=== PATIENT | female | born 1965 | race Two or more races ===

== ENCOUNTER 2024-04-12 01:29 | Emergency (ER) | payer MEDICAID, SELFPAY ==
[2024-04-12 01:29] VITALS: BMI 26.5
[2024-04-12 01:36] VITALS: BP 138/94; PULSE 119; RESP 19; TEMP 36.6; O2SAT 99
--- NOTE | 2024-04-12 01:41 | EDRME_ITS ---
Rapid Medical Screening Exam [facility] Arrival date/time: 04/12/24 01:29 58F with history of anxiety/depression GERD/Linx device, marijauna use, and chronic diarrhea presents to ED with gen muscle cramps. Chief Complaint: General Adult/Misc Complain Vital signs: Vital Signs Temperature 97.9 F 04/12/24 01:36 Pulse Rate 119 H 04/12/24 01:36 Respiratory Rate 19 04/12/24 01:36 Blood Pressure 138/94 H 04/12/24 01:36 Pulse Oximetry (%) 99 04/12/24 01:36 Oxygen Delivery Method Room Air 04/12/24 01:36
[2024-04-12 02:30] LABS: Basophils % (Auto) 0 % (0-2.5); Eosinophils % (Auto) 0 % (0-10); Hematocrit 36.9 % (36.0-46.0); Hemoglobin 11.8 g/dL (12.0-16.0); Immature Granulocytes % (Auto) 0 % (0-0); Immature Granulocytes Auto 0.03 Thou/mm3 (0.00-0.00); Lymphocytes # (Auto) 1.3 Thou/mm3 (1.0-4.8); Lymphocytes % (Auto) 15 % (10-50); Mean Corpuscular Hemoglobin 25.5 pg (25.0-35.0); Mean Corpuscular Volume 80 fL (80-100); Monocytes # (Auto) 1.1 Thou/mm3 (0.0-0.8); Monocytes % (Auto) 13 % (0-12); Neutrophils # (Auto) 6.1 Thou/mm3 (1.8-7.7); Neutrophils % (Auto) 72 % (37-80); Nucleated Red Blood Cell % 0 /100 WBC (0); Platelet Count 411 Thou/mm3 (140-440); RDW Standard Deviation 50.2 fL (36.4-46.3); Red Blood Count 4.63 Miln/mm3 (4.00-5.20); White Blood Count 8.5 Thou/mm3 (3.6-11.0)
[2024-04-12 02:52] LABS: Alanine Aminotransferase 24 U/L (10-49); Albumin, Serum 5.5 gm/dL (3.4-4.8); Albumin/Globulin Ratio 1.8 (1.2-2.2); Alkaline Phosphatase 143 U/L (46-116); Anion Gap 14 (7-16); Aspartate Amino Transferase 35 U/L (0-34); BUN/Creatinine Ratio 6 Ratio (12-20); Bilirubin,Total 0.4 mg/dL (0.3-1.2); Blood Urea Nitrogen 17 mg/dL (9-23); Carbon Dioxide 21.4 mMol/L (20.0-31.0); Chloride 98 mMol/L (98-107); Creatinine (Component) 2.8 mg/dL (0.6-1.3); Estimated Creatinine Clearance 19.5 mL/min (>60); Glucose 181 mg/dL (74-106); Osmolality,Calculated 272 (275-295); Potassium 3.3 mMol/L (3.4-5.1); Sodium 133 mMol/L (136-145); Total Protein 8.5 gm/dL (5.7-8.2); eGFR 19 See Note
[2024-04-12 03:58] LABS: Creatine Kinase 125 U/L (34-171)
[2024-04-12 05:02] VITALS: BP 179/122; PULSE 119; RESP 20; TEMP 36.9; O2SAT 100
[2024-04-12] MEDS: SODIUM CHLORIDE 0.9% 1000 ML 1,000 ML 999 ML IV (05:06)
[2024-04-12 06:13] VITALS: BP 124/88; PULSE 89; RESP 17; TEMP 36.8; O2SAT 97
--- NOTE | 2024-04-12 06:34 | EDNOTE_ITS ---
ED General RME/HPI General Chief complaint: General Adult/Misc Complain Stated complaint: full body cramping Time Seen by Provider: 04/12/24 06:34 Arrival date/time: 04/12/24 01:29 RME / HPI RME / HPI narrative: 04/12/24 01:29 58F with history of anxiety/depression GERD/Linx device, marijauna use, and chronic diarrhea presents to ED with gen muscle cramps. Dr. Loomis MAIN ED EVALUATION 59 year old female with history of hypertension, diabetes, GERD with Linx device in place, s/p gastric bypass, s/p gastric sleeve, chronic diarrhea presents to the ED for complaint of I'm cramping and I think I'm dehydrated . States the cramping sensation is located all throughout her body with no known modifying factors. Accompanied by nausea. Reportedly in the last few days has not had enough fluid intake and is not sure why. Denies fevers, chills, chest pain, cough, shortness of breath, vomiting, or urinary symptoms. Related Data Previous Rx's ?Medication ?Instructions ?Recorded hydrocodone 5 mg-acetaminophen 325 1 tab PO Q6H PRN pain #10 tabs 01/24/24 mg tablet dicyclomine 20 mg tablet 20 mg PO BID #14 tabs 02/10/24 fluconazole 100 mg tablet 100 mg PO QDAY #5 tabs 02/10/24 (Diflucan) meloxicam 7.5 mg tablet 7.5 mg PO QDAY #7 tabs 02/10/24 phenazopyridine 100 mg tablet 100 mg PO TID #6 tabs 02/10/24 (Pyridium) polyethylene glycol 3350 17 17 g PO BID #119 grams 02/25/24 gram/dose oral powder (ClearLax) Allergies Allergy/AdvReac Type Severity Reaction Status Date / Time hydrocodone Allergy Severe Anxiety Verified 04/12/24 01:31 Review of Systems Review of Systems Narrative Review of Systems: Gen: No fever, no chills, no weight loss, + cramping all throughout EYES: No discharge, no visual changes, no pain HEENT: No ear pain, no congestion, no sore throat PULM: No shortness of breath, no cough, no congestion CV: No chest pain, no palpitations GI: +nausea, no vomiting, no diarrhea, no pain, no constipation : No frequency, no urgency,? no dysuria Musc/skel: No joint pain, no back pain Skin: No rash. Neuro: No weakness, no headache Past Medical History Past Medical History CARDIAC: Negative Cardiac Disorders or Congestive Heart Failure RESPIRATORY: Negative Chronic Obstructive Pulmonary Disease (COPD) or Asthma GENITOURINARY: Negative Renal Disease ENDOCRINE: Positive Diabetes Mellitus Type 2; Negative Diabetes Mellitus Type 1 HEMATOLOGIC: Negative Sickle Cell Disease Social History SMOKING STATUS: Never smoker SUBSTANCE USE: does not use ED Exam Narrative Physical exam: GENERAL: In general the patient is awake, interactive, [place] HEAD/EYES/EARS/NOSE/THROAT: normo-cephalic, atraumatic, mucus membranes are moist, anicteric, palpebral conjunctiva is pink, trachea is midline. CARDIOVASCULAR: regular rate and regular rhythm, no murmurs, heart sounds are not distant, strong pulses in all four extremities that are equal and symmetric bilateral upper and lower extremities, normal capillary refill. CHEST/PULMONARY: normal chest rise and fall, good air movement, clear to auscultation bilaterally, normal inspiratory to expiratory ratios without evidence of respiratory distress. ABDOMEN: soft, not tender, no masses appreciated BACK: normal range of motion without pain. NEUROLOGICAL: cranio-facial features are symmetric, moves all four extremities equally without obvious limitations or weakness. EXTREMITY: no tenderness to palpation over the long bones or large joints of the bilateral upper and lower extremities, no joint swelling, no joint erythema, no signs of trauma, no unilateral leg swelling and no peripheral edema. SKIN: warm, dry, well-perfused, no jaundice, no rash, no telangiectasias or petechia. PSYCH: calm, cooperative, no evidence of psychosis or agitation Course Quality Measures none Orders Category Date Time Status Insert IV NOW Care 04/12/24 03:28 Active CBC Stat Lab 04/12/24 02:12 Completed CMP [Comprehensive Metabolic Panel] Stat Lab 04/12/24 02:12 Completed Creatine Kinase Stat Lab 04/12/24 02:12 Completed Drug Screen,Urine Stat Lab 04/12/24 01:41 Ordered Urinalysis Stat Lab 04/12/24 01:41 Ordered Sodium Chloride 0.9% 1000 ml [Ns] 1,000 ml Med 04/12/24 03:28 Discontinued IV 999 mls/hr Reevaluation(s) Reevaluation #1: Patient reports feeling improved after IV fluids. We reviewed all the results, analysis, and treatment plans. Patient is amenable to discharge. Strict return precautions were outlined. Patient was discharged in stable condition. Time: 06:33 Vital Signs Vital signs: Vital Signs Temperature 97.9 F 04/12/24 01:36 Pulse Rate 119 H 04/12/24 01:36 Respiratory Rate 19 04/12/24 01:36 Blood Pressure 138/94 H 04/12/24 01:36 Pulse Oximetry (%) 99 04/12/24 01:36 Oxygen Delivery Method Room Air 04/12/24 01:36 Pulse ox is 99% on room air which is adequate. [facility] Patient data External records reviewed:: [facility] previous records (I reviewed ED visit on 03/19/2024) Clinical information provided by:: patient Social determinants that could affect healthcare access:: substance use (Marijuana use ) Patient has the following chronic illnesses:: hypertension, diabetes, GERD with Linx device in place, s/p gastric bypass, s/p gastric sleeve, chronic diarrhea How is presenting disease/condition affected by chronic disease/condition?: e xacerbated by Evaluation data The following diagnostics were reviewed and interpreted by me:: lab results Lab and/or radiology exams considered but not ordered:: None Interpretation Summary: CBC- WNL Potassium is 3.3 and had been previously low on 02/10/2024 Medications Medications considered but not ordered:: None Medication administrations:: Medication Administration History Discontinued Medications Sodium Chloride (Ns) 1,000 mls @ 999 mls/hr IV .Q1H1M ONE Stop: 04/12/24 04:28 Last Infusion: 04/12/24 06:34 Dose: Infused Documented By: Admin: 04/12/24 05:06 Dose: 999 mls/hr Documented By: CCT See above Consultations Consultation(s) initiated? (list below): No Diagnosis Differential Diagnosis ED Complaint MDM: Dehydration, hypokalemia, hyponatremia Most likely diagnosis given after review of the tests above:: Acute dehydration Hypokalemia Admission Indicated Admission indicated?: not indicated Explain why admission is indicated or not indicated:: Patients symptoms improved. She does not meet admission criteria. Admission Request Was there a request for admission?: No Disposition Plan Disposition Plan: Discharge Discharge Attestation Discharge Attestation: The patient and all family members were given an opportunity to ask questions and understood the discharge instructions. Discharge instructions specifically effects, indications for sooner follow up or return to the emergency department, and the expected course of current diagnosis. Patient condition: Stable Medical Decision Making Differential Diagnosis Differential Diagnosis: Dehydration, hypokalemia, hyponatremia Lab Data 04/12/24 02:12 04/12/24 02:12 Labs: Lab Results 04/12/24 Range/Units 02:12 WBC 8.5 (3.6-11.0) Thou/mm3 RBC 4.63 (4.00-5.20) Miln/mm3 Hgb 11.8 L (12.0-16.0) g/dL Hct 36.9 (36.0-46.0) % MCV 80 (80-100) fL MCH 25.5 (25.0-35.0) pg MCHC 32.0 (31.0-37.0) g/dl RDW Std Deviation 50.2 H (36.4-46.3) fL Plt Count 411 (140-440) Thou/mm3 Neut % (Auto) 72 (37-80) % Lymph % (Auto) 15 (10-50) % [place] % (Auto) 13 H (0-12) % Eos % (Auto) 0 (0-10) % Baso % (Auto) 0 (0-2.5) % Neut # (Auto) 6.1 (1.8-7.7) Thou/mm3 Lymph # (Auto) 1.3 (1.0-4.8) Thou/mm3 [place] # (Auto) 1.1 H (0.0-0.8) Thou/mm3 Eos # (Auto) 0.0 (0.0-0.5) Thou/mm3 Baso # (Auto) 0.0 (0.0-0.2) Thou/mm3 Immature Gran # (Auto) 0.03 H (0.00-0.00) Thou/mm3 Absolute Nucleated RBC 0.00 (0.00-0.00) Thou/mm3 Immature Gran % 0 (0-0) % Nucleated RBC % 0 (0) /100 WBC Sodium 133 L (136-145) mMol/L Potassium 3.3 L (3.4-5.1) mMol/L Chloride 98 (98-107) mMol/L Carbon Dioxide 21.4 (20.0-31.0) mMol/L Anion Gap 14 (7-16) BUN 17 (9-23) mg/dL Creatinine 2.8 H (0.6-1.3) mg/dL Estim Creat Clear Calc 19.5 L (>60) mL/min eGFR 19 L (60 - ) See Note BUN/Creatinine Ratio 6 L (12-20) Ratio Glucose 181 H (74-106) mg/dL Calculated Osmolality 272 L (275-295) Calcium 11.0 H (8.3-10.6) mg/dL Corrected Calcium 11.0 H (8.5-10.1) mg/dL Total Bilirubin 0.4 (0.3-1.2) mg/dL AST 35 H (0-34) U/L ALT 24 (10-49) U/L Alkaline Phosphatase 143 H (46-116) U/L Total Creatine Kinase 125 (34-171) U/L Total Protein 8.5 H (5.7-8.2) gm/dL Albumin 5.5 H (3.4-4.8) gm/dL Globulin 3.0 (2.3-3.5) gm/dL Albumin/Globulin Ratio 1.8 (1.2-2.2) Discharge Plan Plan Patient Disposition: HOME (Self Care) Patient condition on transfer: Stable Prescriptions/Referrals Prescriptions/Med Rec: No Action hydrocodone-acetaminophen 5-325 mg tablet 1 tab PO Q6H MDD 3 PRN (Reason: pain) Qty: 10 0RF phenazopyridine [Pyridium] 100 mg tablet 100 mg PO TID Qty: 6 0RF fluconazole [Diflucan] 100 mg tablet 100 mg PO QDAY Qty: 5 0RF dicyclomine 20 mg tablet 20 mg PO BID Qty: 14 0RF meloxicam 7.5 mg tablet 7.5 mg PO QDAY Qty: 7 0RF polyethylene glycol 3350 [ClearLax] 17 gram/dose powder 17 g PO BID Qty: 119 3RF Rx Instructions: Twice a day for 2 weeks and then once a day for 1 week and then you can do it every other day as needed for constipation. Referrals: No Primary/Family,Physician [Primary Care Provider] - In 1 week Problem List Clinical Impression: Acute dehydration, Hypokalemia Patient/Caregiver Discharge Instructions Education Materials: Discharge Instructions for ..., ED Hypokalemia Additional Instructions: Return to the emergency department for worsening symptoms or any other concerns Print Language: Wallisian Stand Alone Forms: [employer] Info., Patient Portal Info Letter
[2024-04-12 07:18] VITALS: BP 131/88; PULSE 79; RESP 20; TEMP 36.6
== END 2024-04-12 07:27 | disposition home or self-care (01) ==
PROVIDERS: Physician Assistant; Emergency Provider Emergency Medicine
DX: E86.0 Dehydration (principal); E87.6 Hypokalemia
CPT/HCPCS: 36415; 80053; 80307; 81001; 82550; 85025; 96360; 99284; J7030

== ENCOUNTER 2024-04-17 03:46 | Emergency (ER) | payer MEDICAID, SELFPAY ==
[2024-04-17] VITALS (14 sets, daily range): BP systolic 141–184; BP diastolic 84–135; PULSE 88–117; RESP 16–20; TEMP 36.7–37.1; O2SAT 88–100; BMI 27.4
--- NOTE | 2024-04-17 03:56 | EDRME_ITS ---
Rapid Medical Screening Exam [facility] Arrival date/time: 04/17/24 03:46 59F with history of anxiety/depression GERD/Linx device, marijauna use, and chronic diarrhea presents to ED with 3 days of no BM. Patient was here multiple times for similar complaints. Patient was admitted for SBO r/o with no SBO several days ago. Patient has tried enemas and Miralax w/o relief. Patient does not want repeat CT. Chief Complaint: Abdominal Pain Vital signs: Vital Signs Temperature 98.7 F 04/17/24 03:52 Pulse Rate 117 H 04/17/24 03:52 Respiratory Rate 19 04/17/24 03:52 Blood Pressure 165/124 H 04/17/24 03:52 Pulse Oximetry (%) 99 04/17/24 03:52 Oxygen Delivery Method Room Air 04/17/24 03:52
[2024-04-17] MEDS: LACTULOSE SYRUP 20 GM/30 ML UDC 40 GM PO (04:22)
[2024-04-17 06:02] LABS: Lactate (Lactic Acid) 2.2 mMol/L (0.4-2.0)
[2024-04-17 06:08] LABS: Basophils % (Auto) 0 % (0-2.5); Eosinophils % (Auto) 0 % (0-10); Hematocrit 38.3 % (36.0-46.0); Hemoglobin 12.7 g/dL (12.0-16.0); Immature Granulocytes % (Auto) 0 % (0-0); Immature Granulocytes Auto 0.03 Thou/mm3 (0.00-0.00); Lymphocytes # (Auto) 1.3 Thou/mm3 (1.0-4.8); Lymphocytes % (Auto) 16 % (10-50); Mean Corpuscular HGB Conc 33.2 g/dl (31.0-37.0); Mean Corpuscular Hemoglobin 25.9 pg (25.0-35.0); Mean Corpuscular Volume 78 fL (80-100); Monocytes # (Auto) 0.6 Thou/mm3 (0.0-0.8); Monocytes % (Auto) 8 % (0-12); Neutrophils # (Auto) 6.1 Thou/mm3 (1.8-7.7); Neutrophils % (Auto) 76 % (37-80); Nucleated Red Blood Cell % 0 /100 WBC (0); Platelet Count 419 Thou/mm3 (140-440); RDW Standard Deviation 47.7 fL (36.4-46.3); Red Blood Count 4.91 Miln/mm3 (4.00-5.20)
[2024-04-17 06:29] LABS: Alanine Aminotransferase 29 U/L (10-49); Albumin, Serum 5.6 gm/dL (3.4-4.8); Albumin/Globulin Ratio 1.8 (1.2-2.2); Alkaline Phosphatase 155 U/L (46-116); Anion Gap 7 (7-16); Aspartate Amino Transferase 35 U/L (0-34); BUN/Creatinine Ratio 12 Ratio (12-20); Bilirubin,Total 0.8 mg/dL (0.3-1.2); Blood Urea Nitrogen 26 mg/dL (9-23); Calcium 10.8 mg/dL (8.3-10.6); Calcium (Corrected) 10.8 mg/dL (8.5-10.1); Carbon Dioxide 23.4 mMol/L (20.0-31.0); Chloride 96 mMol/L (98-107); Creatinine (Component) 2.1 mg/dL (0.6-1.3); Estimated Creatinine Clearance 25.4 mL/min (>60); Globulin 3.1 gm/dL (2.3-3.5); Glucose 244 mg/dL (74-106); Lipase 51 U/L (12-53); Magnesium 2.6 mg/dL (1.6-2.6); Osmolality,Calculated 266 (275-295); Potassium 4.1 mMol/L (3.4-5.1); Sodium 126 mMol/L (136-145); Total Protein 8.7 gm/dL (5.7-8.2); eGFR 26 See Note
--- NOTE | 2024-04-17 06:41 | XR_ITS ---
Examination: Abdomen AP single view Technique: AP portable supine abdomen, single view Exam date and time: April 17, 2024 0701 hours INDICATIONS: Abdominal pain constipation beginning 3 days ago. FINDINGS: Nonobstructive bowel gas pattern Moderate air and stool throughout the colon Surgical clips upper abdomen Moderate lumbar levoscoliosis Prominent osteopenia IMPRESSION: Nonobstructive bowel gas pattern
--- NOTE | 2024-04-17 08:10 | PC.NURSE ---
PT HERE WITH C/O ABD PAIN FOR 3 DAYS. B/P HIGH AND PT STATES I'VE NOT BEEN TAKING MY B/P MEDS BECAUSE IT'S BEEN LOW. PT REQUESTING PAIN MEDICATIONS AND WHEN INFORMED SHE CAN'T BE DRIVING AFTER RECEIVING NARCOTICS. PT STATES I ONLY LIVE JUST DOWN THE ROAD I'LL BE OKAY. INFORMED THAT SHE WILL HAVE TO CALL SOMEONE IF THE MD ORDERS NARCOTICS
[2024-04-17] MEDS: SODIUM CHLORIDE 0.9% 1000 ML 1,000 ML 999 ML IV ×2 (08:33→13:42)
[2024-04-17] MEDS: KETOROLAC INJ 30 MG/ML VIAL IVP (08:38)
[2024-04-17 08:51] LABS: Reflex Lactate? Y
[2024-04-17 09:15] LABS: Lactic Acid, 3 HR 2.9 mMol/L (0.4-2.0)
--- NOTE | 2024-04-17 09:15 | XR_ITS ---
Examination: CT abdomen and pelvis without contrast. Coronal 3-D reconstructions. Sagittal 2-D reconstructions. Date and time of exam:April 17, 2024 0941 hours INDICATIONS: Generalized abdominal pain and constipation beginning 3 days ago COMPARISON: April 12, 2024 CTDI: vol (mGy): 7.15 DLP: (mGycm): 384 Technique: Axial images of the abdomen have been obtained, 3 mm slice thickness Intravenous contrast material has not been administered. Low dose protocols were performed. One or more of the following dose reduction techniques were used; automated exposure control, adjustment of the mA and/or KV according to patient size, use of iterative reconstruction technique. Findings: Lap band device No focal liver or splenic lesions Absent gallbladder No pancreatic or adrenal mass Moderate bilateral renal parenchymal scar formation 1 mm calculus upper pole right kidney coronal image 79 2 mm calculus mid pole left kidney coronal image 80 1 mm upper pole left renal calculus image, coronal 84 No hydronephrosis or ureteral calculi Abdominal aortic calcification no aneurysmal dilatation Mildly fluid distended colon and mild wall thickening small bowel loops Normal appendix No bowel obstruction No diverticulitis No pelvic mass Contracted urinary bladder Prominent osteopenia IMPRESSION: Tiny bilateral nonobstructing renal calculi Normal appendix Nonspecific mild diffuse colitis enteritis pattern, no bowel obstruction
[2024-04-17] MEDS: HYDROmorphone INJ 2 MG/ML VIAL IVP (09:25)
--- NOTE | 2024-04-17 10:21 | PC.NURSE ---
PT NO WITH C/O ITCHING AND I THINK IT'S FROM THE PAIN MEDICATION. WILL INFORM
[2024-04-17] MEDS: DiphenhydrAMINE INJ 50 MG/ML VIAL 25 MG IVP (10:31)
--- NOTE | 2024-04-17 10:49 | PC.NURSE ---
informed about b/p 140/104 and will hold hydralazine at this time
--- NOTE | 2024-04-17 13:40 | EDNOTE_ITS ---
ED Abdominal Pain RME/HPI General Chief Complaint: Abdominal Pain Stated complaint: ABD PAIN, NO BM X 3 DAYS Time seen by provider: 04/17/24 08:13 Arrival date/time: 04/17/24 03:46 RME / HPI RME / HPI narrative: 04/17/24 03:46 59F with history of anxiety/depression GERD/Linx device, marijauna use, and chronic diarrhea presents to ED with 3 days of no BM. Patient was here multiple times for similar complaints. Patient was admitted for SBO r/o with no SBO several days ago. Patient has tried enemas and Miralax w/o relief. Patient does not want repeat CT. DR. RAMIREZ MAIN ED EVALUATION 59 year old female with history of hypertension, diabetes, GERD s/p Linx device, s/p lap-band, s/p cholecystectomy, SBO presents to the ED for complaint of abdominal pain and generalized discomfort beginning 3 days ago. States abdominal pain is described as aching in sensation that is located throughout, with no known modifying factors, rating as moderate. Accompanied by constipation, no bowel movement x3 days. Reports symptoms today are similar to previous SBO. No other associated symptoms or complaints reported. Denies fevers, chills, cough, chest pain, or urinary symptoms. On arrival to ED patient is moaning and groaning, requesting Dilaudid. Social hx: +Marijuana use Related Data Home Medications ?Medication ?Instructions ?Recorded ?Confirmed polyethylene glycol 3350 17 17 g PO PRN PRN Constipation 04/12/24 04/12/24 gram/dose oral powder (ClearLax) aripiprazole 10 mg tablet mg 04/13/24 atorvastatin 80 mg tablet mg 04/13/24 bupropion HCl 300 mg 24 hr tablet, mg PO 04/13/24 extended release diphenhydramine HCl 25 mg capsule 25 mg PO 2XD 04/13/24 04/13/24 (Banophen) duloxetine 60 mg capsule,delayed 60 mg PO 1XD 04/13/24 04/13/24 release ergocalciferol (vitamin D2) 1,250 1,250 mcg PO 1XD 04/13/24 04/13/24 mcg (50,000 unit) capsule gabapentin 300 mg capsule 300 mg PO 3XD 04/13/24 04/13/24 ketorolac 10 mg tablet 10 mg PO 2XD 04/13/24 04/13/24 pantoprazole 40 mg tablet,delayed 40 mg PO 2XD 04/13/24 04/13/24 release Previous Rx's ?Medication ?Instructions ?Recorded dicyclomine 20 mg tablet 20 mg PO BID #14 tabs 02/10/24 Allergies Allergy/AdvReac Type Severity Reaction Status Date / Time hydrocodone Allergy Severe Anxiety Verified 04/12/24 01:31 hydromorphone [From Dilaudid] Allergy Severe Hives Verified 04/17/24 10:22 morphine Allergy Severe ITCHINESS Verified 04/13/24 03:45 Review of Systems Review of Systems Narrative Review of Systems: GEN: No fever, no chills, no weight loss EYES: No discharge, no visual changes, no pain HEENT: No ear pain, no congestion, no sore throat PULM: No shortness of breath, no cough, no congestion CV: No chest pain, no dyspnea on exertion, no palpitations GI: No nausea, no vomiting, no diarrhea, +pain, + constipation : No frequency, no urgency and no dysuria MUSC/SKEL No joint pain, no back pain SKIN: No rash NEURO: No weakness, no headache Past Medical History Past Medical History CARDIAC: Negative Cardiac Disorders or Congestive Heart Failure RESPIRATORY: Negative Chronic Obstructive Pulmonary Disease (COPD) or Asthma GENITOURINARY: Negative Renal Disease ENDOCRINE: Positive Diabetes Mellitus Type 2; Negative Diabetes Mellitus Type 1 HEMATOLOGIC: Negative Sickle Cell Disease Surgical History SURGICAL: Positive Abdominal Surgery and Gastric Bypass Surgery Social History SMOKING STATUS: Current some day smoker SUBSTANCE USE: does not use ED Exam Narrative Physical exam: GENERAL APPEARANCE: Well hydrated, well nourished, appears to be uncomfortable, moaning and groaning. VITALS: All vitals were reviewed and the pulse ox is 99% on room air which is normal according to my interpretation. HEENT: Normocephalic, atramatic, EOMI, EACs are patent. There is no bulge or retraction. Throat without erythema or exudate. Dry lips. No jaundice NECK: Supple, no JVD or bruits. CARDIOVASCULAR: Tachycardic, without S3-S4 or murmur. No rubs or gallops. LUNGS/CHEST: Clear to auscultation bilaterally. No rales, rhonchi, or wheezing. Normal inspection. ABDOMEN: Soft, vaguely tender throughout, no rebound, no guarding, normal bowel sounds. No pulsatile masses. No rigidity. No incarcerated hernia. EXTREMITIES: Normal inspection and palpation. No edema, clubbing, or cyanosis. Intact CSM SKIN: Warm and dry without rashes. Normal inspection. MUSCULOSKELETAL: Normal inspection. No gross deformity, full ROM all extremities NEURO: Alert and oriented x3. Cranial nerves II through XII grossly intact. There are no other motor or sensory deficits noted. PSYCHIATRIC: Normal mood and affect. No psychosis. Course Quality Measures none Orders Category Date Time Status Enema Administration NOW Care 04/17/24 06:41 Active Enema Administration NOW Care 04/17/24 09:[address] abdomen pelvis wo con Stat Exams 04/17/24 09:15 Completed XR abdomen 1V Stat Exams 04/17/24 06:41 Completed CBC Stat Lab 04/17/24 05:44 Completed CMP [Comprehensive Metabolic Panel] Stat Lab 04/17/24 05:44 Completed Lactate (Lactic Acid) Stat Lab 04/17/24 05:44 Completed Lactic Acid, 3 HR Stat Lab 04/17/24 09:07 Completed Lipase Stat Lab 04/17/24 05:44 Completed Magnesium Stat Lab 04/17/24 05:44 Completed DiphenhydrAMINE INJ [Benadryl Inj] Med 04/17/24 10:23 Discontinued 25 mg IVP X1 ONE HYDROmorphone INJ [Dilaudid Inj] Med 04/17/24 09:15 Discontinued 2 mg IVP X1 ONE Ketorolac Inj [Toradol Inj] Med 04/17/24 08:35 Discontinued 30 mg IVP X1 ONE Lactulose Syrup [Enulose Syrup] Med 04/17/24 03:55 Discontinued 40 gm PO X1 ONE Sodium Chloride 0.9% 1000 ml [Ns] 1,000 ml Med 04/17/24 08:20 Discontinued IV 999 mls/hr Sodium Chloride 0.9% 1000 ml [Ns] 1,000 ml Med 04/17/24 13:34 Active IV 999 mls/hr hydrALAZINE INJ [Apresoline Inj] Med 04/17/24 10:15 Discontinued 10 mg IV X1 ONE Vital Signs Vital signs: Vital Signs Temperature 98.7 F 04/17/24 03:52 Pulse Rate 117 H 04/17/24 03:52 Respiratory Rate 19 04/17/24 03:52 Blood Pressure 165/124 H 04/17/24 03:52 Pulse Oximetry (%) 99 04/17/24 03:52 Oxygen Delivery Method Room Air 04/17/24 03:52 Abdominal Pain MDM MDM Narrative MDM Narrative:: CBC unremarkable. Sodium is 126. Blood sugar 244. BUN of 26. Creatinine of 2.1. Consistent with dehydration. Lactic acid was 2.2 also consistent with dehydration rather than septic. Magnesium is negative. Abdominal x-ray is reviewed and interpreted by me as follow: Lap-Band in the stomach and surgical clips on the right upper quadrant no bowel obstruction. No free air. No air-fluid level. Scant amount of stooling is seen in the rectum. CT abdomen and pelvic was reviewed and interpreted by me as follow: Lap-Band in the stomach. Surgical clips in the right upper quadrant consistent with cholecystectomy. Evidence of abdominal ileus consistent with her physical finding. No significant stool buildup except for the right upper quadrant. No evidence of rectal impaction. In the emergency department and per patient's request, she was given Dilaudid for the pain. Which helped a lot. She was also given Fleet enema and soapsuds enema. From which she did have some stool coming out. Because of the lactic acid was still 2.9 is repeated, I am giving her more IV fluid bolus for the dehydration. 1:47 PM, patient has no surgical abdomen at this time. She can go home and follow-up with PMD in the next couple of days. Patient is happy and smiling at this time. She said that her condition has much improved and the pain is gone. Patient data External records reviewed:: [facility] previous records (I reviewed admission from 04/12/2024 through 04/13/2024 for SBO ) Clinical information provided by:: patient Social determinants that could affect healthcare access:: substance use (Marijuana ) Patient has the following chronic illnesses:: hypertension, diabetes, GERD s/p Linx device, s/p lap-band, s/p cholecystectomy, SBO How is presenting disease/condition affected by chronic disease/condition?: exacerbated by Evaluation data The following diagnostics were reviewed and interpreted by me:: lab results and radiology exam(s) Lab and/or radiology exams considered but not ordered:: None Interpretation Summary: Ordering Physician: Liz Thurman Date of Service: 04/17/24 Procedure(s): XR abdomen 1V Accession Number(s): [id number] cc: Oneal Aguilar MD; Joshua Hargrove MD; Liz Thurman~ Examination: Abdomen AP single view Technique: AP portable supine abdomen, single view Exam date and time: April 17, 2024 0701 hours INDICATIONS: Abdominal pain constipation beginning 3 days ago. FINDINGS: Nonobstructive bowel gas pattern Moderate air and stool throughout the colon Surgical clips upper abdomen Moderate lumbar levoscoliosis Prominent osteopenia IMPRESSION: Nonobstructive bowel gas pattern Dictated By: Joshua Hargrove MD Signed By: <Electronically signed by Joshua Hargrove MD in OV> 04/17/24 0931 Ordering Physician: Marcus Ramirez MD Date of Service: 04/17/24 Procedure(s): CT abdomen pelvis wo con Accession Number(s): [id number] cc: Oneal Aguilar MD; Joshua Hargrove MD; Marcus Ramirez MD~ Examination: CT abdomen and pelvis without contrast. Coronal 3-D reconstructions. Sagittal 2-D reconstructions. Date and time of exam:April 17, 2024 0941 hours INDICATIONS: Generalized abdominal pain and constipation beginning 3 days ago COMPARISON: April 12, 2024 CTDI: vol (mGy): 7.15 DLP: (mGycm): 384 Technique: Axial images of the abdomen have been obtained, 3 mm slice thickness Intravenous contrast material has not been administered. Low dose protocols were performed. One or more of the following dose reduction techniques were used; automated exposure control, adjustment of the mA and/or KV according to patient size, use of iterative reconstruction technique. Findings: Lap band device No focal liver or splenic lesions Absent gallbladder No pancreatic or adrenal mass Moderate bilateral renal parenchymal scar formation 1 mm calculus upper pole right kidney coronal image 79 2 mm calculus mid pole left kidney coronal image 80 1 mm upper pole left renal calculus image, coronal 84 No hydronephrosis or ureteral calculi Abdominal aortic calcification no aneurysmal dilatation Mildly fluid distended colon and mild wall thickening small bowel loops Normal appendix No bowel obstruction No diverticulitis No pelvic mass Contracted urinary bladder Prominent osteopenia IMPRESSION: Tiny bilateral nonobstructing renal calculi Normal appendix Nonspecific mild diffuse colitis enteritis pattern, no bowel obstruction Dictated By: Joshua Hargrove MD Signed By: <Electronically signed by Joshua Hargrove MD in OV> 04/17/24 1007 Medications / Prescriptions Medications or Prescriptions considered but not ordered:: None Medication administrations:: Medication Administration History Sodium Chloride (Ns) 1,000 mls @ 999 mls/hr IV .Q1H1M ONE Stop: 04/17/24 14:34 Last Admin: 04/17/24 13:42 Dose: 999 mls/hr Documented By: DB Discontinued Medications Diphenhydramine HCl (Diphenhydramine Inj 50 Mg/Ml Vial) 25 mg IVP X1 ONE Stop: 04/17/24 10:24 Last Admin: 04/17/24 10:31 Dose: 25 mg Documented By: [facility] Hydralazine HCl (Hydralazine Inj 20 Mg/Ml Vial) 10 mg IV X1 ONE Stop: 04/17/24 10:16 Hydromorphone HCl (Hydromorphone Inj 2 Mg/Ml Vial) 2 mg IVP X1 ONE Stop: 04/17/24 09:16 Last Admin: 04/17/24 09:25 Dose: 2 mg Documented By: [facility] Sodium Chloride (Ns) 1,000 mls @ 999 mls/hr IV .Q1H1M ONE Stop: 04/17/24 09:20 Last Infusion: 04/17/24 13:40 Dose: Infused Documented By: Admin: 04/17/24 08:33 Dose: 999 mls/hr Documented By: GM Ketorolac Tromethamine (Ketorolac Inj 30 Mg/Ml Vial) 30 mg IVP X1 ONE Stop: 04/17/24 08:36 Last Admin: 04/17/24 08:38 Dose: 30 mg Documented By: GM Lactulose (Lactulose Syrup 20 Gm/30 Ml Udc) 40 gm PO X1 ONE; Protocol Stop: 04/17/24 03:56 Last Admin: 04/17/24 04:22 Dose: 40 gm Documented By: CVL See above Consultations Consultation(s) initiated? (list below): No Diagnosis Differential diagnosis abdominal pain: abdominal pain, constipation and small bowel obstruction Most likely diagnosis given after review of the tests above:: Abdominal pain. Abdominal ileus Nonobstructing kidney stone. Chronic kidney disease Admission Indicated Admission indicated?: not indicated Admission Request Was there a request for admission?: No Disposition Plan Disposition Plan: Discharge Discharge Attestation Discharge Attestation: The patient and all family members were given an opportunity to ask questions and understood the discharge instructions. Discharge instructions specifically effects, indications for sooner follow up or return to the emergency department, and the expected course of current diagnosis. Patient condition: Stable Discharge Plan Plan Patient Disposition: HOME (Self Care) Disposition Comment: Stable for DC home Prescriptions/Referrals Prescriptions/Med Rec: No Action dicyclomine 20 mg tablet 20 mg PO BID Qty: 14 0RF polyethylene glycol 3350 [ClearLax] 17 gram/dose powder 17 g PO PRN PRN (Reason: Constipation) Rx Instructions: Twice a day for 2 weeks and then once a day for 1 week and then you can do it every other day as needed for constipation. atorvastatin 80 mg tablet ketorolac 10 mg tablet 10 mg PO 2XD pantoprazole 40 mg tablet,delayed release (DR/EC) 40 mg PO 2XD Patient Comments: take 1 tablet by mouth once daily diphenhydramine HCl [Banophen] 25 mg capsule 25 mg PO 2XD Patient Comments: take 1 capsule by mouth every 6 to 8 hours if needed gabapentin 300 mg capsule 300 mg PO 3XD Patient Comments: take 1 capsule by mouth three times a day ergocalciferol (vitamin D2) 1,250 mcg (50,000 unit) capsule 1,250 mcg PO 1XD aripiprazole 10 mg tablet Patient Comments: take 1 tablet by mouth once daily bupropion HCl 300 mg tablet extended release 24 hr PO Patient Comments: take 1 tablet by mouth every morning duloxetine 60 mg capsule,delayed release(DR/EC) 60 mg PO 1XD Patient Comments: take 1 capsule by mouth once daily Referrals: Oneal Aguilar MD [Primary Care Provider] - In 1 week Problem List Clinical Impression: Acute dehydration, Abdominal pain Patient/Caregiver Discharge Instructions Education Materials: Abdominal Pain, ED Dehydration (Adult) Additional Instructions: Liquid diet for 24 hours and then advance as tolerated. See your doctor for recheck and further care in 3 days. Return to the nearest emergency department if condition worsens or if new symptoms develop especially fever and or abdominal distention Print Language: Luxembourgish Stand Alone Forms: [employer] Info., Patient Portal Info Letter
[2024-04-17] MEDS: cloNIDine HCL 0.1 MG TABLET 0.2 MG PO (16:04)
[2024-04-17] MEDS: hydrALAZINE HCL 10 MG TABLET PO (16:35)
== END 2024-04-17 16:39 | disposition home or self-care (01) ==
PROVIDERS: Physician Assistant; Emergency Provider Emergency Medicine; PCP Internal Medicine
DX: E86.0 Dehydration (principal); N20.0 Calculus of kidney; K59.00 Constipation, unspecified
CPT/HCPCS: 36415; 74018; 74176; 80053; 83605; 83690; 83735; 85025; 96361; 96374; 96375; 99284; J1200; J1885; J3490; J7030; A9270

== ENCOUNTER 2024-04-29 15:29 | Emergency (ER) | payer MEDICAID, SELFPAY ==
[2024-04-29 15:54] VITALS: BP 167/114; BP 184/120; PULSE 88; RESP 17; TEMP 37; O2SAT 96; BMI 26.0
--- NOTE | 2024-04-29 16:07 | XR_ITS ---
Examination: Abdomen AP single view Technique: AP portable supine abdomen, single view Exam date and time: April 29, 2024 1609 hrs. Indications: Constipation abdominal pain beginning 3 days ago Findings: Moderate stool throughout the colon No obstruction Surgical clips in the upper abdomen with lap band device No free air Moderate lumbar levoscoliosis Impression: Moderate stool throughout the colon
--- NOTE | 2024-04-29 16:07 | PD.EDRME ---
Rapid Medical Screening Exam RME Arrival date/time: 04/29/24 15:29 59-year-old female presents the emergency department complains of constipation Chief Complaint: Abdominal Pain Vital signs: Vital Signs Temperature 98.6 F 04/29/24 15:54 Pulse Rate 88 04/29/24 15:54 Respiratory Rate 17 04/29/24 15:54 Blood Pressure 184/120 H 04/29/24 15:54 Pulse Oximetry (%) 96 04/29/24 15:54 Oxygen Delivery Method Room Air 04/29/24 15:54
[2024-04-29] MEDS: KETOROLAC INJ 30 MG/ML VIAL IM (17:10)
[2024-04-29] MEDS: MAGNESIUM CITRATE 300 ML BTL PO ×2 (17:19→23:14)
[2024-04-29 20:51] VITALS: BP 187/120; BP 199/120; PULSE 115; RESP 22; TEMP 36.9; O2SAT 98
--- NOTE | 2024-04-29 22:03 | PD.EDABDPN ---
ED Abdominal Pain RME/HPI General Chief Complaint: Abdominal Pain Stated complaint: Constipation X 3 days Time seen by provider: 04/29/24 21:07 Arrival date/time: 04/29/24 15:29 RME / HPI RME / HPI narrative: 04/29/24 15:29 59-year-old female presents the emergency department complains of constipation ----- Dr. [facility] Main ED Evaluation: 59yo female with pmhx DM, HTN, GERD with Linx device, gastric bypass presents to the ED for a chief complaint of constipation x 3 days. Patient states she has a history of chronic constipation, but reports her constipation significantly worsened over the last 3 days. She states her abdominal pain worsened today and still has not had a bowel movement, so she came in for evaluation. She endorses associated nausea and a decreased appetite, but no vomiting. She denies any fever, chills or any other associated symptoms. She states she has not taken any pain medications, stating she's allergic to all pain medications . Related Data Home Medications ?Medication ?Instructions ?Recorded ?Confirmed polyethylene glycol 3350 17 17 g PO PRN PRN Constipation 04/12/24 04/12/24 gram/dose oral powder (ClearLax) aripiprazole 10 mg tablet mg 04/13/24 atorvastatin 80 mg tablet mg 04/13/24 bupropion HCl 300 mg 24 hr tablet, mg PO 04/13/24 extended release diphenhydramine HCl 25 mg capsule 25 mg PO 2XD 04/13/24 04/13/24 (Banophen) duloxetine 60 mg capsule,delayed 60 mg PO 1XD 04/13/24 04/13/24 release ergocalciferol (vitamin D2) 1,250 1,250 mcg PO 1XD 04/13/24 04/13/24 mcg (50,000 unit) capsule gabapentin 300 mg capsule 300 mg PO 3XD 04/13/24 04/13/24 ketorolac 10 mg tablet 10 mg PO 2XD 04/13/24 04/13/24 pantoprazole 40 mg tablet,delayed 40 mg PO 2XD 04/13/24 04/13/24 release Previous Rx's ?Medication ?Instructions ?Recorded dicyclomine 20 mg tablet 20 mg PO BID #14 tabs 02/10/24 Allergies Allergy/AdvReac Type Severity Reaction Status Date / Time hydrocodone Allergy Severe Anxiety Verified 04/12/24 01:31 hydromorphone [From Dilaudid] Allergy Severe Hives Verified 04/17/24 10:22 morphine Allergy Severe ITCHINESS Verified 04/13/24 03:45 Review of Systems Review of Systems Systems Reviewed: All systems reviewed, normal except as documented ED Exam Narrative Physical exam: GENERAL APPEARANCE: alert and oriented x 4, well-developed, well-nourished, rolling around in the gurney, no acute distress VITALS: All vitals were reviewed and the pulse ox is 98% on room air, which is normal according to my interpretation. HEENT: Normocephalic, atraumatic; pupils equal, round, reactive to light; EOMI; mucous membranes pink, moist; oropharynx clear NECK: Supple LUNGS: CTABL; no wheezes, no rales, no rhonchi HEART: Regular rate, regular rhythm; normal S1, S2; no murmurs ABDOMEN: Patient is rolling around in the bed and will not allow a proper abdominal exam. When I palpate her abdominal wall, she clenches up and does not allow a proper exam. When distracted, her abdomen is nontender on palpation. BACK: no CVA tenderness EXTREMITIES: atraumatic; no edema NEUROLOGIC: awake; alert and oriented x4; cranial nerves II-XII grossly intact; no focal sensory or motor deficits PSYCHIATRIC: appropriate mood and affect SKIN: warm, dry, normal color; no rashes Course Course Course Narrative: 0029: Patient is no longer tachycardia at this time. Patient states she is currently stating she is [facility] and is unable to get comfortable there . She repeatedly states that she's allergic to pain medications. Patient cannot received NSAIDs due to her previous gastric sleeve. Patient given Magnesium Citrate and NS IVF with improvement of symptoms. Patient is advised to follow-up with her PCP. Return precautions given. Quality Measures none Orders Category Date Time Status Trimmer Sorter STAT Care 04/29/24 22:13 Completed Continuous Pulse Oximetry STAT Care 04/29/24 22:13 Completed EKG (ED ONLY) *Do not use* NOW Care 04/29/24 22:13 Completed Fleet [Enema Administration] NOW Care 04/29/24 16:07 Completed Insert IV STAT Care 04/29/24 22:13 Completed EKG (ED Only) Stat Exams 04/29/24 22:13 Ordered XR abdomen 1V Stat Exams 04/29/24 16:07 Completed CBC Stat Lab 04/29/24 22:25 Completed Comprehensive Metabolic Panel Stat Lab 04/29/24 22:25 Completed Drug Screen,Urine Stat Lab 04/29/24 23:22 Completed Lipase Stat Lab 04/29/24 22:25 Completed Magnesium Stat Lab 04/29/24 22:25 Completed Urinalysis Stat Lab 04/29/24 23:22 Completed Acetaminophen Ivpb [Ofirmev Inj] Med 04/29/24 22:15 Discontinued 1,000 mg in 100 ml IV Q6HR Ketorolac Inj [Toradol Inj] Med 04/29/24 16:42 Discontinued 30 mg IM X1 ONE Magnesium Citrate Liqd [Citrate of Magnesia Liqd] Med 04/29/24 16:07 Discontinued 300 ml PO X1 ONE Magnesium Citrate Liqd [Citrate of Magnesia Liqd] Med 04/29/24 22:16 Discontinued 300 ml PO X1 ONE Sodium Chloride 0.9% 1000 ml [Ns] 1,000 ml Med 04/29/24 22:13 Discontinued IV 999 mls/hr Vital Signs Vital signs: Vital Signs Temperature 98.6 F 04/29/24 15:54 Pulse Rate 88 04/29/24 15:54 Respiratory Rate 17 04/29/24 15:54 Blood Pressure 184/120 H 04/29/24 15:54 Pulse Oximetry (%) 96 04/29/24 15:54 Oxygen Delivery Method Room Air 04/29/24 15:54 Abdominal Pain MDM Patient data External records reviewed:: [facility] previous records (Per chart review, patient was seen here on 04/17/24 for the same complaint.) Clinical information provided by:: patient Social determinants that could affect healthcare access:: substance use Patient has the following chronic illnesses:: hypertension, DM2, GERD with Linx device, gastric bypass, and gastric sleeve How is presenting disease/condition affected by chronic disease/condition?: exacerbated by Evaluation data The following diagnostics were reviewed and interpreted by me:: lab results, radiology exam(s) and EKG tracing(s) Lab and/or radiology exams considered but not ordered:: none Interpretation Summary: CBC is normal, CMP is normal, Magnesium is elevated at 4.2, Lipase is normal, UA shows 2+ glucose and 1+ ketones, UDS is positive for marijuana, according to my interpretation. EKG done at 2259, sinus tachycardia, rate of 106, normal axis, no ectopy, no acute ischemia, according to my interpretation. [facility] Report Signed Patient: CHASITY CLAUDIO Record#: [id number] Birthdate: 1965 Age/Sex: 59 / F Location: [facility] Attending Dr: Ordering Physician: Marleen BECERRA)Marcus NP Date of Service: 04/29/24 Procedure(s): XR abdomen 1V Accession Number(s): [id number] cc: Marleen BECERRA),Marcus WOLF; Oneal Aguilar MD; Joshua Hargrove MD~ Examination: Abdomen AP single view Technique: AP portable supine abdomen, single view Exam date and time: April 29, 2024 1609 hrs. Indications: Constipation abdominal pain beginning 3 days ago Findings: Moderate stool throughout the colon No obstruction Surgical clips in the upper abdomen with lap band device No free air Moderate lumbar levoscoliosis Impression: Moderate stool throughout the colon Dictated By: Joshua Hargrove MD Signed By: <Electronically signed by Joshua Hargrove MD in OV> 04/29/24 1750 Medications / Prescriptions Medications or Prescriptions considered but not ordered:: none Medication administrations:: Medication Administration History Discontinued Medications Sodium Chloride (Ns) 1,000 mls @ 999 mls/hr IV .Q1H1M ONE Stop: 04/29/24 23:13 Last Infusion: 04/30/24 00:17 Dose: Infused Documented By: Admin: 04/29/24 23:13 Dose: 999 mls/hr Documented By: SALINA Acetaminophen (Ofirmev Inj) 1,000 mg in 100 mls @ 250 mls/hr IV Q6HR HELENA Stop: 04/30/24 12:23 Last Admin: 04/30/24 00:07 Dose: Not Given Documented By: SALINA Non-Admin Reason: Wrong Time Infusion: 04/29/24 23:50 Dose: Infused Documented By: Admin: 04/29/24 23:14 Dose: 250 mls/hr Documented By: SALINA Ketorolac Tromethamine (Ketorolac Inj 30 Mg/Ml Vial) 30 mg IM X1 ONE Stop: 04/29/24 16:43 Last Admin: 04/29/24 17:10 Dose: 30 mg Documented By: ANA Magnesium Citrate (Magnesium Citrate 300 Ml Btl) 300 ml PO X1 ONE Stop: 04/29/24 16:08 Last Admin: 04/29/24 17:19 Dose: 300 ml Documented By: ANA Magnesium Citrate (Magnesium Citrate 300 Ml Btl) 300 ml PO X1 ONE Stop: 04/29/24 22:17 Last Admin: 04/29/24 23:14 Dose: 300 ml Documented By: SALINA see above Consultations Consultation(s) initiated? (list below): No Diagnosis Differential diagnosis abdominal pain: constipation, gastroenteritis, small bowel obstruction and other (gastroparesis, drug abuse) Most likely diagnosis given after review of the tests above:: see below Admission Indicated Admission indicated?: not indicated Admission Request Was there a request for admission?: No Disposition Plan Disposition Plan: Discharge Discharge Attestation Discharge Attestation: The patient and all family members were given an opportunity to ask questions and understood the discharge instructions. Discharge instructions specifically effects, indications for sooner follow up or return to the emergency department, and the expected course of current diagnosis. Patient condition: Stable Discharge Plan Plan Patient Disposition: HOME (Self Care) Disposition Comment: Stable for discharge Patient condition on transfer: Stable Prescriptions/Referrals Prescriptions/Med Rec: No Action dicyclomine 20 mg tablet 20 mg PO BID Qty: 14 0RF polyethylene glycol 3350 [ClearLax] 17 gram/dose powder 17 g PO PRN PRN (Reason: Constipation) Rx Instructions: Twice a day for 2 weeks and then once a day for 1 week and then you can do it every other day as needed for constipation. atorvastatin 80 mg tablet ketorolac 10 mg tablet 10 mg PO 2XD pantoprazole 40 mg tablet,delayed release (DR/EC) 40 mg PO 2XD Patient Comments: take 1 tablet by mouth once daily diphenhydramine HCl [Banophen] 25 mg capsule 25 mg PO 2XD Patient Comments: take 1 capsule by mouth every 6 to 8 hours if needed gabapentin 300 mg capsule 300 mg PO 3XD Patient Comments: take 1 capsule by mouth three times a day ergocalciferol (vitamin D2) 1,250 mcg (50,000 unit) capsule 1,250 mcg PO 1XD aripiprazole 10 mg tablet Patient Comments: take 1 tablet by mouth once daily bupropion HCl 300 mg tablet extended release 24 hr PO Patient Comments: take 1 tablet by mouth every morning duloxetine 60 mg capsule,delayed release(DR/EC) 60 mg PO 1XD Patient Comments: take 1 capsule by mouth once daily Referrals: Oneal Aguilar MD [Primary Care Provider] - In 1 week Problem List Clinical Impression: Chronic pain Patient/Caregiver Discharge Instructions Education Materials: Chronic Pain Therapies Mind Body, Managing Chronic Pain, ED Chronic Pain Additional Instructions: Please return to the emergency department for any worsening or any further medical problems You should follow-up with your primary care doctor within the next several days and ask about being sent to a specialist. Print Language: Amharic Stand Alone Forms: [employer] Award Info., Patient Portal Info Letter
[2024-04-29 22:52] LABS: Basophils % (Auto) 0 % (0-2.5); Eosinophils % (Auto) 0 % (0-10); Hematocrit 32.4 % (36.0-46.0); Hemoglobin 10.4 g/dL (12.0-16.0); Immature Granulocytes % (Auto) 0 % (0-0); Immature Granulocytes Auto 0.03 Thou/mm3 (0.00-0.00); Lymphocytes # (Auto) 0.6 Thou/mm3 (1.0-4.8); Lymphocytes % (Auto) 7 % (10-50); Mean Corpuscular HGB Conc 32.1 g/dl (31.0-37.0); Mean Corpuscular Hemoglobin 25.4 pg (25.0-35.0); Mean Corpuscular Volume 79 fL (80-100); Monocytes # (Auto) 0.4 Thou/mm3 (0.0-0.8); Monocytes % (Auto) 4 % (0-12); Neutrophils # (Auto) 7.4 Thou/mm3 (1.8-7.7); Neutrophils % (Auto) 88 % (37-80); Nucleated Red Blood Cell % 0 /100 WBC (0); Platelet Count 411 Thou/mm3 (140-440); RDW Standard Deviation 50.1 fL (36.4-46.3); White Blood Count 8.4 Thou/mm3 (3.6-11.0)
[2024-04-29] MEDS: SODIUM CHLORIDE 0.9% 1000 ML 1,000 ML 999 ML IV (23:13)
[2024-04-29 23:14] VITALS: PULSE 105
[2024-04-29] MEDS: ACETAMINOPHEN IVPB 1,000 MG/100 ML VIAL 250 MG IV (23:14)
[2024-04-29 23:15] LABS: Alanine Aminotransferase 25 U/L (10-49); Albumin, Serum 4.9 gm/dL (3.4-4.8); Albumin/Globulin Ratio 1.9 (1.2-2.2); Alkaline Phosphatase 142 U/L (46-116); Anion Gap 8 (7-16); Aspartate Amino Transferase 36 U/L (0-34); BUN/Creatinine Ratio 14 Ratio (12-20); Bilirubin,Total 0.7 mg/dL (0.3-1.2); Blood Urea Nitrogen 14 mg/dL (9-23); Calcium 10.1 mg/dL (8.3-10.6); Calcium (Corrected) 10.1 mg/dL (8.5-10.1); Carbon Dioxide 27.8 mMol/L (20.0-31.0); Chloride 101 mMol/L (98-107); Estimated Creatinine Clearance 54.2 mL/min (>60); Globulin 2.6 gm/dL (2.3-3.5); Glucose 177 mg/dL (74-106); Lipase 42 U/L (12-53); Magnesium 4.2 mg/dL (1.6-2.6); Osmolality,Calculated 278 (275-295); Potassium 3.6 mMol/L (3.4-5.1); Sodium 137 mMol/L (136-145); Total Protein 7.5 gm/dL (5.7-8.2); eGFR > 60 See Note
[2024-04-29 23:36] LABS: Collection Type, Urine Clean Catch; RBC,Urine 0 /hpf (0-3); WBC,Urine 0 /hpf (0-5)
[2024-04-29 23:54] LABS: Bacteria,Urine Rare; Bilirubin,Urine Negative (Negative); Blood,Urine Negative (Negative); Clarity,Urine Turbid (Clear/Hazy); Color,Urine Lt-Yellow (Lt Yel-Yel); Glucose, Urine 2+ (Negative); Hyaline Casts,Urine < 1 /hpf (0-1); Ketones,Urine 1+ (Negative); Leukocyte Esterase,Urine Negative (Negative); Nitrite,Urine Negative (Negative); PH,Urine 7.5 (5.0-7.0); Protein,Urine Negative (Neg - Trace); Specific Gravity,Urine 1.014 (1.001-1.035); Squamous Epithelial Cell,Urine < 1 /hpf (0-5); Urobilinogen,Urine Negative mg/dL (0.0-1.0)
[2024-04-29 23:56] LABS: Amphetamine/Methamp Scrn,U Negative (Negative); Barbiturate Screen,Urine Negative (Negative); Benzodiazepines Screen,Urine Negative (Negative); Benzoylecgonine Screen, Ur Negative (Negative); Fentanyl Screen,Urine Negative (Negative); Opiate Screen,Urine Negative (Negative); THC Screen,Urine Positive (Negative)
[2024-04-30 00:54] VITALS: BP 176/129; PULSE 107; RESP 16; O2SAT 99
== END 2024-04-30 01:00 | disposition home or self-care (01) ==
PROVIDERS: Emergency Provider Emergency Medicine; PCP Internal Medicine
DX: K59.00 Constipation, unspecified (principal); R00.0 Tachycardia, unspecified; I10 Essential (primary) hypertension
CPT/HCPCS: 36415; 74018; 80053; 80307; 81001; 83690; 83735; 85025; 93005; 96365; 96372; 99284; J0131; J1885; J7030; A9270

== ENCOUNTER → 2024-05-12 | Outpatient (CLI) | payer MEDICAID, SELFPAY ==
--- NOTE | 2024-05-12 13:30 | XR_ITS ---
Examination: Abdomen sonogram, complete Date and time of exam: May 12, 2024 1337 hours INDICATIONS: Diarrhea constipation several years with mid abdominal pain. Technique: Multiple real-time grayscale transabdominal sonographic images of the abdomen have been obtained. Findings: Absent gallbladder Normal common bile duct 0.2 cm Pancreatic head 2.9 cm Mid and distal aorta visualized not enlarged Liver 13.5 cm irregular contour fatty infiltration no focal liver lesions Normal hepatopedal portal venous flow Patent IVC Right kidney 8.7 x 4.5 x 4.5 cm cortex 2.2 cm Midpole cyst 8 mm Left kidney 9.5 x 4.3 x 3.5 cm cortex 1.3 cm Mid to upper pole cyst 14 x 16 mm Moderate bilateral renal parenchymal scar formation No hydronephrosis Spleen 8.1 cm IMPRESSION: Absent gallbladder Normal common bile duct Primary hepatocellular disease Small kidneys with moderate bilateral renal parenchymal scar formation
== END | disposition home or self-care (01) ==
PROVIDERS: PCP Nurse Practitioner Family; Referring Provider Nurse Practitioner Family; Visit Provider Nurse Practitioner Family
DX: Z90.49 Acquired absence of other specified parts of digestive tract (principal); K76.9 Liver disease, unspecified; N28.89 Other specified disorders of kidney and ureter
CPT/HCPCS: 76700

== ENCOUNTER 2024-06-14 11:02 | Inpatient (IN) | payer MEDICAID, SELFPAY ==
[2024-06-14] VITALS (11 sets, daily range): BP systolic 68–104; BP diastolic 43–68; PULSE 71–96; RESP 15–18; TEMP 36.2–36.6; O2SAT 96–100; BMI 24.0; BMI 26.2
--- NOTE | 2024-06-14 11:08 | PC.NURSE ---
Patient to ER via ems from urgent care with c/o weakness, low blood pressure, lisinopril increased yest by pmd. Currently patient alert and oriented x3, 1L LR infusing via 18g left ac, per Kevin CABLE DRILLER at bedside, continue IVF bolus from EMS to give total of 1L LR do to low blood pressure.
--- NOTE | 2024-06-14 11:09 | EKG_ITS ---
[facility] Test Date: 2024-06-14 Pat Name: CHASITY CLAUDIO Department: Room: - Gender: Female Grants Assistant: : 1965 Requested By: Kevin Morton Order Number: [id number] Reading MD: Kevin Morton Measurements Intervals Aragon Rate: 83 P: 49 PA: 148 QRS: 6 QRSD: 94 T: 54 QT: 364 QTc: 428 Interpretive Statements SINUS RHYTHM No previous ECG available for comparison /store/S0/[id number].pdf
--- NOTE | 2024-06-14 11:10 | EDNOTE_ITS ---
ED General RME/HPI General Chief complaint: General Adult/Misc Complain Stated complaint: LOW BP Time Seen by Provider: 06/14/24 11:09 Arrival date/time: 06/14/24 11:02 CC: Lightheaded dizziness HPI ongoing for the past 2 days, initially seen at urgent care center where pressures were in the 70s systolic. Patient admits at one point she blacked out . The patient states she is worse when she sits up or stands up EMS report 70/40 initially and after 500 cc bolus she is 90/50. Patient states she is weak lightheaded for the past day. Patient denies chest pain shortness of breath difficulty breathing nausea vomiting but does complain of diarrhea Related Data Home Medications ?Medication ?Instructions ?Recorded ?Confirmed aripiprazole 10 mg tablet 10 mg PO QDAY 04/13/24 06/14/24 atorvastatin 80 mg tablet 80 mg PO QDAY 04/13/24 06/14/24 bupropion HCl 300 mg 24 hr tablet, 300 mg PO QDAY 04/13/24 06/14/24 extended release duloxetine 60 mg capsule,delayed 60 mg PO 1XD 04/13/24 06/14/24 release ergocalciferol (vitamin D2) 1,250 1,250 mcg PO 1XD 04/13/24 06/14/24 mcg (50,000 unit) capsule gabapentin 300 mg capsule 300 mg PO 3XD 04/13/24 06/14/24 pantoprazole 40 mg tablet,delayed 40 mg PO QDAY 04/13/24 06/14/24 release hydrocodone 5 mg-acetaminophen 325 1 tab PO Q6H PRN Moderate Pain 06/14/24 06/14/24 mg tablet (Scale Score 5-6) lisinopril 10 mg tablet 10 mg PO QDAY 06/14/24 06/14/24 metformin 500 mg tablet,extended 1,000 mg PO BID 06/14/24 06/14/24 release 24 hr sucralfate 1 gram tablet 1 g PO BID 06/14/24 06/14/24 trazodone 150 mg tablet 150 mg PO HS 06/14/24 06/14/24 Allergies Allergy/AdvReac Type Severity Reaction Status Date / Time hydrocodone Allergy Severe Anxiety Verified 04/12/24 01:31 hydromorphone [From Dilaudid] Allergy Severe Hives Verified 04/17/24 10:22 morphine Allergy Severe ITCHINESS Verified 04/13/24 03:45 Review of Systems Review of Systems Narrative Review of Systems: GEN: No fever, no chills, no weight loss EYES: No discharge, no visual changes, no pain HEENT: No ear pain, no congestion, no sore throat PULM: No shortness of breath, no cough, no congestion CV: No chest pain, no dyspnea on exertion, no palpitations GI: No nausea, no vomiting, no diarrhea, no pain, no constipation : No frequency, no urgency, no dysuria MUSC/SKEL: No joint pain, no back pain SKIN: No rash PSYCH: No hallucinations, no depression HEME/LYMPH: No easy bleeding or bruising tendencies NEURO: + weakness, no headache Past Medical History Past Medical History CARDIAC: Negative Cardiac Disorders or Congestive Heart Failure RESPIRATORY: Negative Chronic Obstructive Pulmonary Disease (COPD) or Asthma GENITOURINARY: Negative Renal Disease ENDOCRINE: Positive Diabetes Mellitus Type 2; Negative Diabetes Mellitus Type 1 HEMATOLOGIC: Negative Sickle Cell Disease Surgical History SURGICAL: Positive Abdominal Surgery and Gastric Bypass Surgery Social History SMOKING STATUS: Former smoker SUBSTANCE USE: does not use ED Exam Narrative Physical exam: [General: Not in any acute distress Head normocephalic HEENT: Within acceptable limits Neck is supple nontender Chest equal chest rise nontender to palpation Respiratory: Clear to auscultation no wheezes crackles or rubs CV: Rate rhythm is regular no murmurs rubs or clicks Abdomen is soft nontender no masses positive bowel sounds all 4 quadrants Back: No CVA tenderness no spinous process tenderness from cervical spine thoracic and lumbar spine Skin: Intact no petechiae rash induration ulceration or crepitus Extremities: Moving all extremity against resistance cap refill less than 2 seconds neurosensory intact Neuro: Awake alert oriented x3 Glascow coma 15 no focal deficits] Course Quality Measures none Orders Category Date Time Status EKG (ED ONLY) *Do not use* NOW Care 06/14/24 11:09 Completed EKG (ED Only) Stat Exams 06/14/24 11:09 Draft B-Type Natriuretic Peptide Stat Lab 06/14/24 11:25 Completed CBC Stat Lab 06/14/24 11:25 Completed Comprehensive Metabolic Panel Stat Lab 06/14/24 11:25 Completed Drug Screen,Urine Stat Lab 06/14/24 14:29 Completed LDH (Lactate Dehydrogenase) Stat Lab 06/14/24 11:25 Completed Magnesium Stat Lab 06/14/24 11:25 Completed Partial Thromboplastin Time Stat Lab 06/14/24 11:25 Completed Prothrombin Time with INR Stat Lab 06/14/24 11:25 Completed Troponin I Stat Lab 06/14/24 11:25 Completed Urinalysis Stat Lab 06/14/24 14:29 Completed POTASSIUM CHL 10 mEq IVPB [Kcl Ivpb] Med 06/14/24 12:19 Discontinued 10 meq in 100 ml IV Q1H Sodium Chloride 0.9% 1000 ml [Ns] 1,000 ml Med 06/14/24 11:57 Active IV 150 mls/hr Sodium Chloride 0.9% 1000 ml [Ns] 1,000 ml Med 06/14/24 12:06 Discontinued IV 999 mls/hr Late Tray Request Routine Oth 06/14/24 12:26 Active Vital Signs Vital signs: Vital Signs Temperature 97.8 F 06/14/24 11:11 Pulse Rate 88 06/14/24 11:11 Respiratory Rate 18 06/14/24 11:11 Blood Pressure 88/60 L 06/14/24 11:11 Pulse Oximetry (%) 100 06/14/24 11:11 Oxygen Delivery Method Nasal Cannula 06/14/24 11:11 Oxygen Flow Rate 4 06/14/24 11:11 [facility] Patient data External records reviewed:: [facility] previous records and EMS form Clinical information provided by:: patient and EMS Social determinants that could affect healthcare access:: none Patient has the following chronic illnesses:: Hyperlipidemia hypertension How is presenting disease/condition affected by chronic disease/condition?: u neffected by Evaluation data The following diagnostics were reviewed and interpreted by me:: lab results and radiology exam(s) Lab and/or radiology exams considered but not ordered:: EKG performed at 1121 shows a ventricular rate of 83 TX interval 148 QRS of 94 QTc of 403 and normal sinus rhythm. CBC shows a 13,000 white count anemia at 9 and 30, platelets are elevated at greater than 470. CMP shows a sodium 133 potassium of 3.0 chloride of 98 CO2 of 20.8 BUN of 54 creatinine 3.2 and a blood glucose of 65. Interpretation Summary: Patient is hypokalemic with FATIMAH worst in the past, at this time comfortable admitting the patient for FATIMAH and hypokalemia and hypotension. Patient is in agreement with this plan. Medications Medications considered but not ordered:: None Medication administrations:: Medication Administration History Acetaminophen (Acetaminophen 325 Mg Tablet) 650 mg PO Q6H PRN PRN Reason: PAIN SCALE 1-3 (mild Stop: 07/14/24 13:00 Acetaminophen (Acetaminophen 325 Mg Tablet) 650 mg PO Q6H PRN PRN Reason: Fever >100 Stop: 07/14/24 13:00 Hydrocodone Bitart/Acetaminophen (Hydrocodone/Apap 10/325 Tab) 1 tab PO Q4HR PRN PRN Reason: PAIN SCALE 7-10 (Severe Stop: 06/19/24 13:00 Aripiprazole (Aripiprazole 5 Mg Tablet) 10 mg PO QDAY [facility] Stop: 07/14/24 13:44 Last Admin: 06/14/24 17:51 Dose: 10 mg Documented By: SD Atorvastatin Calcium (Atorvastatin Calcium 20 Mg Tablet) 80 mg PO HS [facility] Stop: 07/14/24 20:59 Bupropion HCl (Bupropion Hcl 100 Mg Tablet) 300 mg PO QDAY [facility] Stop: 07/15/24 08:59 Dextrose (Dextrose 50%-Water Inj 50 Ml Syringe) 25 ml IV Q15MIN PRN PRN Reason: BG 50-70 responsive npo pt Stop: 07/14/24 13:30 Dextrose (Dextrose 50%-Water Inj 50 Ml Syringe) 50 ml IV Q15MIN PRN PRN Reason: BG <50 OR BG <70 & pt unresponsive Stop: 07/14/24 13:30 Duloxetine HCl (Duloxetine Hcl 30 Mg Capsule) 60 mg PO QDAY [facility] Stop: 07/14/24 13:44 Last Admin: 06/14/24 17:51 Dose: 60 mg Documented By: SD Gabapentin (Gabapentin 300 Mg Capsule) 300 mg PO TID [facility] Stop: 07/14/24 13:59 Last Admin: 06/14/24 15:10 Dose: 300 mg Documented By: KAROLINA Glucagon (Glucagon Inj 1 Mg Vial) 1 mg IM Q15MIN PRN PRN Reason: BG <70, and no IV access Heparin Sodium (Porcine) (Heparin Sod Inj 5000 Unit/Ml Vial) 5,000 unit SC Q8HR HELENA Stop: 06/28/24 13:59 Last Admin: 06/14/24 15:10 Dose: 5,000 unit Documented By: KAROLINA Co-signed By: ANA Sodium Chloride (Ns) 1,000 mls @ 150 mls/hr IV .Q6H40M HELENA Stop: 06/15/24 11:56 Last Infusion: 06/14/24 18:10 Dose: 150 mls/hr Documented By: Admin: 06/14/24 13:46 Dose: 150 mls/hr Documented By: KAROLINA Insulin Human Regular (Insulin Hum Regular 1 Unit/0.01 Ml (Per Unit)) 0 unit SC AC HELENA; Protocol Stop: 07/14/24 16:59 Last Admin: 06/14/24 18:10 Dose: Not Given Documented By: SD Non-Admin Reason: Per Protocol Ondansetron HCl (Ondansetron Inj 2 Mg/Ml Inj 2 Ml) 4 mg IV Q6H PRN; Protocol PRN Reason: NAUSEA OR VOMITING Stop: 07/14/24 13:00 Oxycodone/Acetaminophen (Oxycodone/Apap 5/325 Tablet) 1 tab PO Q6H PRN PRN Reason: PAIN SCALE 4-6 (Moderate Stop: 06/19/24 13:00 Pantoprazole Sodium (Pantoprazole Inj 40 Mg Vial) 40 mg IVP QDAY HELENA Stop: 07/15/24 08:59 Trazodone HCl (Trazodone Hcl 50 Mg Tablet) 150 mg PO HS [facility] Stop: 07/14/24 13:39 Discontinued Medications Sodium Chloride (Ns) 1,000 mls @ 999 mls/hr IV .Q1H1M ONE Stop: 06/14/24 13:06 Last Infusion: 06/14/24 13:46 Dose: Infused Documented By: Admin: 06/14/24 12:37 Dose: 999 mls/hr Documented By: KAROLINA Potassium Chloride (Kcl Ivpb) 10 meq in 100 mls @ 100 mls/hr IV Q1H HELENA Stop: 06/14/24 16:18 Last Admin: 06/14/24 19:04 Dose: 100 mls/hr Documented By: Infusion: 06/14/24 17:09 Dose: Infused Documented By: Admin: 06/14/24 16:09 Dose: 100 mls/hr Documented By: Infusion: 06/14/24 14:42 Dose: Infused Documented By: Admin: 06/14/24 13:42 Dose: 100 mls/hr Documented By: KAROLINA Comments: slowed rate to 45ml/hr do to patient having pain at iv site Infusion: 06/14/24 13:39 Dose: Infused Documented By: Admin: 06/14/24 12:36 Dose: 100 mls/hr Documented By: KAROLINA None Consultations Consultation(s) initiated? (list below): No Diagnosis Differential Diagnosis ED Complaint MDM: Hypotension FATIMAH anemia hypokalemia Most likely diagnosis given after review of the tests above:: Hypotension FATIMAH anemia hypokalemia Admission Indicated Admission indicated?: indicated Explain why admission is indicated or not indicated:: Further medical management Admission Request Was there a request for admission?: No Disposition Plan Disposition Plan: Admit Medical Decision Making Differential Diagnosis Differential Diagnosis: Hypotension FATIMAH anemia hypokalemia Lab Data 06/14/24 11:25 06/14/24 11:25 Labs: Lab Results 06/14/24 Range/Units 11:25 WBC 13.4 H (3.6-11.0) Thou/mm3 RBC 3.92 L (4.00-5.20) Miln/mm3 Hgb 9.4 L (12.0-16.0) g/dL Hct 30.2 L (36.0-46.0) % MCV 77 L (80-100) fL MCH 24.0 L (25.0-35.0) pg MCHC 31.1 (31.0-37.0) g/dl RDW Std Deviation 46.9 H (36.4-46.3) fL Plt Count 673 H (140-440) Thou/mm3 Neut % (Auto) 81 H (37-80) % Lymph % (Auto) 9 L (10-50) % Rooks % (Auto) 9 (0-12) % Eos % (Auto) 0 (0-10) % Baso % (Auto) 0 (0-2.5) % Neut # (Auto) 10.9 H (1.8-7.7) Thou/mm3 Lymph # (Auto) 1.3 (1.0-4.8) Thou/mm3 Rooks # (Auto) 1.2 H (0.0-0.8) Thou/mm3 Eos # (Auto) 0.0 (0.0-0.5) Thou/mm3 Baso # (Auto) 0.0 (0.0-0.2) Thou/mm3 Immature Gran # (Auto) 0.09 H (0.00-0.00) Thou/mm3 Absolute Nucleated RBC 0.00 (0.00-0.00) Thou/mm3 Immature Gran % 1 H (0-0) % Nucleated RBC % 0 (0) /100 WBC PT 10.3 (9.0-12.2) Seconds INR 0.9 (0.9-1.3) APTT 25.8 (22.0-36.0) Seconds Sodium 133 L (136-145) mMol/L Potassium 3.0 L (3.4-5.1) mMol/L Chloride 98 (98-107) mMol/L Carbon Dioxide 20.8 (20.0-31.0) mMol/L Anion Gap 14 (7-16) BUN 54 H (9-23) mg/dL Creatinine 3.2 H (0.6-1.3) mg/dL Estim Creat Clear Calc 15.3 L (>60) mL/min eGFR 16 L (60 - ) See Note BUN/Creatinine Ratio 17 (12-20) Ratio Glucose 65 L (74-106) mg/dL Calculated Osmolality 279 (275-295) Calcium 8.8 (8.3-10.6) mg/dL Corrected Calcium 8.8 (8.5-10.1) mg/dL Magnesium 2.2 (1.6-2.6) mg/dL Total Bilirubin 0.2 L (0.3-1.2) mg/dL AST 33 (0-34) U/L ALT 31 (10-49) U/L Alkaline Phosphatase 142 H (46-116) U/L Lactate Dehydrogenase 247 H (120-246) U/L Troponin I < 0.020 (0.0-0.045) ng/mL B-Natriuretic Peptide < 20 (0-100) pg/mL Total Protein 7.2 (5.7-8.2) gm/dL Albumin 4.3 (3.4-4.8) gm/dL Globulin 2.9 (2.3-3.5) gm/dL Albumin/Globulin Ratio 1.5 (1.2-2.2) Discharge Plan Plan Patient Disposition: Admit Acute Care w/in Hospital Patient condition on transfer: Stable Problem List Clinical Impression: FATIMAH (acute kidney injury), Hypokalemia, Hypotension, Anemia PA/THREAT MONITORING ANALYST Supervising Physician PA/THREAT MONITORING ANALYST Supervising Physician: Shara Lucas ENP
[2024-06-14 11:53] LABS: Basophils % (Auto) 0 % (0-2.5); Eosinophils % (Auto) 0 % (0-10); Hematocrit 30.2 % (36.0-46.0); Hemoglobin 9.4 g/dL (12.0-16.0); Immature Granulocytes % (Auto) 1 % (0-0); Immature Granulocytes Auto 0.09 Thou/mm3 (0.00-0.00); Lymphocytes # (Auto) 1.3 Thou/mm3 (1.0-4.8); Lymphocytes % (Auto) 9 % (10-50); Mean Corpuscular HGB Conc 31.1 g/dl (31.0-37.0); Mean Corpuscular Volume 77 fL (80-100); Monocytes # (Auto) 1.2 Thou/mm3 (0.0-0.8); Monocytes % (Auto) 9 % (0-12); Neutrophils # (Auto) 10.9 Thou/mm3 (1.8-7.7); Neutrophils % (Auto) 81 % (37-80); Nucleated Red Blood Cell % 0 /100 WBC (0); Platelet Count 673 Thou/mm3 (140-440); RDW Standard Deviation 46.9 fL (36.4-46.3); Red Blood Count 3.92 Miln/mm3 (4.00-5.20); White Blood Count 13.4 Thou/mm3 (3.6-11.0)
[2024-06-14 12:01] LABS: B-Type Natriuretic Peptide < 20 pg/mL (0-100); INR 0.9 (0.9-1.3); Partial Thromboplastin Time 25.8 Seconds (22.0-36.0); Prothrombin Time 10.3 Seconds (9.0-12.2)
[2024-06-14 12:04] LABS: Alanine Aminotransferase 31 U/L (10-49); Albumin, Serum 4.3 gm/dL (3.4-4.8); Albumin/Globulin Ratio 1.5 (1.2-2.2); Alkaline Phosphatase 142 U/L (46-116); Anion Gap 14 (7-16); Aspartate Amino Transferase 33 U/L (0-34); BUN/Creatinine Ratio 17 Ratio (12-20); Bilirubin,Total 0.2 mg/dL (0.3-1.2); Blood Urea Nitrogen 54 mg/dL (9-23); Calcium 8.8 mg/dL (8.3-10.6); Calcium (Corrected) 8.8 mg/dL (8.5-10.1); Carbon Dioxide 20.8 mMol/L (20.0-31.0); Chloride 98 mMol/L (98-107); Creatinine (Component) 3.2 mg/dL (0.6-1.3); Estimated Creatinine Clearance 15.3 mL/min (>60); Globulin 2.9 gm/dL (2.3-3.5); Glucose 65 mg/dL (74-106); LDH (Lactate Dehydrogenase) 247 U/L (120-246); Magnesium 2.2 mg/dL (1.6-2.6); Osmolality,Calculated 279 (275-295); Sodium 133 mMol/L (136-145); Total Protein 7.2 gm/dL (5.7-8.2); Troponin I < 0.020 ng/mL (0.0-0.045); eGFR 16 See Note
[2024-06-14] MEDS: POTASSIUM CHL 10 mEq IVPB 10 MEQ/100 ML BAG 100 MEQ IV ×4 (12:36→19:04)
[2024-06-14] MEDS: SODIUM CHLORIDE 0.9% 1000 ML 1,000 ML 999 ML IV ×2 (12:37→21:01)
--- NOTE | 2024-06-14 13:03 | ESHP_ITS ---
Documentation for date of: 06/14/24 [facility] History of Present Illness History of present illness: This is a 59-year-old female PMHx of HTN, T2DM, GERD with Linx device, gastric bypass, gastric sleeve presenting with 1 week of dizziness and diarrhea. Patient has somewhat complicated GI history with chronic diarrhea that has previously been worked up thoroughly. However, reports worsening diarrhea over the last week, having >5 episodes of diarrhea in the morning followed by intermittent episodes throughout the day of mostly watery stool, nonbloody, nonfatty. Does not recall specific trigger such as food, dining out, food allergy, recent travel, or sick exposure. No one in her family has this problem. Yesterday she was seen by her PCP who increased her LISINOPRIL dose from 5 mg to 10 mg, patient's attributes the dizziness to her dose increased. Last colonoscopy 2 years ago, last endoscopy 3 years ago roughly, no abnormal findings. Denies recent ANTIBIOTIC use, fever, chills, headaches, loss of consciousness, fall or trauma, chest pain, shortness of breath, cough, normal weight loss or gain, abdominal pain, nausea, vomiting, constipation, GI bleed, dysuria or hematuria. ED course: Afebrile, BP 88/60, pulse 88, satting 100% on 4 L NC WBC 13.4, Hgb 9.4, PLT 673. Normal coag studies. Sodium 133, potassium 3, creatinine 3.2 (baseline 1.0), GFR 16 (baseline >60), GLUCOSE 65, ALP 142, baseline, lactic dehydrogenase 247. UA negative for UTI. EKG sinus rhythm. Patient given 1 L normal saline, potassium, and started on maintenance fluid. She was admitted to floors for FATIMAH management. PMHx: HTN, T2DM, GERD, depression, chronic pain Meds: LISINOPRIL, METFORMIN, GABAPENTIN, ATORVASTATIN, DULOXETINE, TRAZODONE, OMEPRAZOLE, BUPROPION. PSHx: Gastric sleeve bypass Allergies HYDROCODONE, HYDROMORPHONE, MORPHINE. Exam Vital Signs Temp Pulse Resp BP Pulse Ox O2 Del Method O2 Flow Rate 97.8 F 78 16 91/64 100 Room Air 4 06/14/24 11:11 06/14/24 11:52 06/14/24 11:52 06/14/24 11:52 06/14/24 11:52 06/14/24 11:52 06/14/24 11:11 Narrative Exam GENERAL * Normal appearing middle-aged female, NAD, on room air HEENT * NCAT.?MAGDA. Oral mucosa is moist. Patent Nares NECK * Supple, nontender, no thyromegaly, no meningismus, no JVD, no step offs CHEST * RRR, no m/g/r * CTAB, no w/r/r. Symmetrical chest rise. No intercostal subcostal retraction * Atraumatic, nontender, no crepitus, symmetrical expansion. ABDOMEN * Soft, flat, nontender. No guarding/rebound tenderness/masses. * Bowel sounds presents EXTREMITIES * Nontender, no cyanosis, no edema * No edema/cyanosis.? SKIN * Warm and dry, no jaundice/rashes. NEUROMUSCULAR * No lumbar or midline, no CVA, no paraspinal muscle spasm or tenderness. * Moves all 4 extremities well, with full ROM and good CSM. * RASHEED x4, CN II-XII grossly intact. * No focal neurologic deficits. PSYCHIATRY * Normal mood and affect, cooperative, no SI or HI or hallucinations. Results: Labs 06/14/24 22:39 06/14/24 22:39 Labs: Short CBC 06/14/24 Range/Units 11:25 WBC 13.4 H (3.6-11.0) Thou/mm3 Hgb 9.4 L (12.0-16.0) g/dL Hct 30.2 L (36.0-46.0) % Plt Count 673 H (140-440) Thou/mm3 BMP 06/14/24 11:25 Sodium 133 L Potassium 3.0 L Chloride 98 Carbon Dioxide 20.8 BUN 54 H Creatinine 3.2 H Glucose 65 L Calcium 8.8 Cardiac Enzymes 06/14/24 Range/Units 11:25 Troponin I < 0.020 (0.0-0.045) ng/mL Liver Function 06/14/24 Range/Units 11:25 Total Bilirubin 0.2 L (0.3-1.2) mg/dL AST 33 (0-34) U/L ALT 31 (10-49) U/L Alkaline Phosphatase 142 H (46-116) U/L Albumin 4.3 (3.4-4.8) gm/dL Quality Measures Quality Measures VTE prophylaxis Medications Home Medications and Allergies Home Medications ?Medication ?Instructions ?Recorded ?Confirmed ?Type aripiprazole 10 mg tablet 10 mg PO QDAY 04/13/24 06/14/24 History atorvastatin 80 mg tablet 80 mg PO QDAY 04/13/24 06/14/24 History bupropion HCl 300 mg 24 hr tablet, 300 mg PO QDAY 04/13/24 06/14/24 History extended release duloxetine 60 mg capsule,delayed 60 mg PO 1XD 04/13/24 06/14/24 History release ergocalciferol (vitamin D2) 1,250 1,250 mcg PO 1XD 04/13/24 06/14/24 History mcg (50,000 unit) capsule gabapentin 300 mg capsule 300 mg PO 3XD 04/13/24 06/14/24 History pantoprazole 40 mg tablet,delayed 40 mg PO QDAY 04/13/24 06/14/24 History release hydrocodone 5 mg-acetaminophen 325 1 tab PO Q6H PRN Moderate Pain 06/14/24 06/14/24 History mg tablet (Scale Score 5-6) lisinopril 10 mg tablet 10 mg PO QDAY 06/14/24 06/14/24 History metformin 500 mg tablet,extended 1,000 mg PO BID 06/14/24 06/14/24 History release 24 hr sucralfate 1 gram tablet 1 g PO BID 06/14/24 06/14/24 History trazodone 150 mg tablet 150 mg PO HS 06/14/24 06/14/24 History Allergies Allergy/AdvReac Type Severity Reaction Status Date / Time hydrocodone Allergy Severe Anxiety Verified 04/12/24 01:31 hydromorphone [From Dilaudid] Allergy Severe Hives Verified 04/17/24 10:22 morphine Allergy Severe ITCHINESS Verified 04/13/24 03:45 Visit Medications Sodium Chloride (Ns) 1,000 mls @ 150 mls/hr IV .Q6H40M HELENA Stop: 06/15/24 11:56 Sodium Chloride (Ns) 1,000 mls @ 999 mls/hr IV .Q1H1M ONE Stop: 06/14/24 13:06 Last Admin: 06/14/24 12:37 Dose: 999 mls/hr Potassium Chloride (Kcl Ivpb) 10 meq in 100 mls @ 100 mls/hr IV Q1H HELENA Stop: 06/14/24 16:18 Last Admin: 06/14/24 12:36 Dose: 100 mls/hr Assessment & Plan Plan In summary: 59-year-old female with PMHx of HTN, T2DM, GERD, previous SBO, depression, history of gastric bypass and gastric sleeve presenting with intractable nausea leading to dizziness. Admitted for FATIMAH and further workup. Prerenal FATIMAH Hypotension Hypokalemia In setting of diarrhea x 1 week. Appears dehydrated on exam. Reports decreased urine output. Patient CR 2.2, GFR 16. Last renal panel from 04/29/2024 was normal. Admission BP 88/60 in settings of GI loss. Potassium 3.0 on admission, most likely GI loss, less likely LISINOPRIL as she was on a small dose and only recently restarted LISINOPRIL. Given 1 L bolus, BP, improving. ? Continue normal saline at 150 cc an hour ? Continue repleted potassium as needed ? Renally dose meds, avoid overdiuresis and NEPHROTOXINS. ? Daily CMP Intractable diarrhea ? Gastritis Dizziness GERD S/p gastric bypass and gastric sleeve Presenting with 1 week of intractable dizziness and lightheadedness in the setting of worsening diarrhea. History of chronic diarrhea, worsened over the last week. Previously worked up for diarrhea or negative. Afebrile, no chills, no food allergy, no abnormal weight changes, not related to eating, no recent travel or sick exposure. Afebrile. On exam, WBC 13.4, most likely viral gastritis. ? Fluid support as above ? ONDANSETRON PRN HTN HLD Had previously stopped previously LISINOPRIL 5 mg. PCP recently restarted her on a higher dose of 10 mg. Patient attributed her dizziness to LISINOPRIL which is less likely, at a low dose and has only taken 1 tablet so far. Currently BP soft. ? Resumed home ATORVASTATIN 80 mg daily ? Daily vitals ? Restart ANTIHYPERTENSIVE as indicated T2DM GLUCOSE 65 on admission. Likely in settings of poor oral intake and diarrhea. A1c 6.2 from 04/2024. ? Holding home METFORMIN ? INSULIN sliding scale Anxiety and depression Chronic pain ? Continue home DULOXETINE 60 mg daily ? Continue home order for result 10 mg daily ? Continue home BUPROPION 300 mg daily ? Continue home GABAPENTIN 300 mg TID ? HOLDING home TRAZODONE 150 mg daily HS in settings of dizziness Health maintenance Diet: Renal, CHO consistent GI prophylaxis: Not indicated DVT prophylaxis: HEPARIN Antibiotics: Not indicated CODE STATUS: Full code Disposition: Pending FATIMAH resolution. Patient case was discussed with attending, Wild Du MD and senior resident Dr. Ponce. Mounika Evans DO PGYI Attending Provider Attestation/Addendum I have examined the patient, reviewed labs and imaging findings, discussed the case with the resident(s), and reviewed entered orders. I agree with the plan of care as outlined in this note. Dr. Du
[2024-06-14] MEDS: SODIUM CHLORIDE 0.9% 1000 ML 1,000 ML 150 ML IV ×2 (13:46→20:55)
--- NOTE | 2024-06-14 14:27 | PC.CC ---
ASW attempted to meet with pt at bedside to complete initial assessment. Pt noted to be asleep and did not respond to name being called.
[2024-06-14 14:46] LABS: Collection Type, Urine Clean Catch
[2024-06-14] MEDS: HEPARIN SOD INJ 5000 UNIT/ML VIAL SC ×2 (15:10→21:50)
[2024-06-14] MEDS: GABAPENTIN 300 MG CAPSULE PO ×2 (15:10→21:50)
[2024-06-14 15:13] LABS: Bilirubin,Urine Negative (Negative); Blood,Urine Negative (Negative); Clarity,Urine Clear (Clear/Hazy); Color,Urine Lt-Yellow (Lt Yel-Yel); Glucose, Urine Negative (Negative); Hyaline Casts,Urine < 1 /hpf (0-1); Ketones,Urine Negative (Negative); Leukocyte Esterase,Urine Negative (Negative); Nitrite,Urine Negative (Negative); Protein,Urine 1+ (Neg - Trace); RBC,Urine 1 /hpf (0-3); Specific Gravity,Urine 1.014 (1.001-1.035); Squamous Epithelial Cell,Urine 1 /hpf (0-5); Urobilinogen,Urine Negative mg/dL (0.0-1.0); WBC,Urine 3 /hpf (0-5)
[2024-06-14 15:16] LABS: Amphetamine/Methamp Scrn,U Negative (Negative); Barbiturate Screen,Urine Negative (Negative); Benzodiazepines Screen,Urine Negative (Negative); Benzoylecgonine Screen, Ur Negative (Negative); Fentanyl Screen,Urine Negative (Negative); Opiate Screen,Urine Negative (Negative); THC Screen,Urine Positive (Negative)
--- NOTE | 2024-06-14 15:20 | PC.NURSE ---
Teja not in our ER pyxis, report given to Shital MEADE on M/T will give medications once patient up to floor
[2024-06-14] MEDS: ARIPiprazole 5 MG TABLET 10 MG PO (17:51)
[2024-06-14] MEDS: DULoxetine HCL 30 MG CAPSULE 60 MG PO (17:51)
--- NOTE | 2024-06-14 19:46 | PC.NURSE ---
BP taken: Right Arm - 84/52, Left Arm - 82/52; HR 96. Patient has no complaints of dizziness or any discomfort. Dr. Hope made aware, no new orders at this time. stated to recheck VS in an hour.
--- NOTE | 2024-06-14 19:48 | PC.NURSE ---
Pt ambulated to the bathroom supervised by THIRD SHIFT LIEUTENANT. VS rechecked: BP 104/62, HR 92. Will recheck VS in 1 hour.
--- NOTE | 2024-06-14 21:35 | EVENTNT_ITS ---
Documentation for date of: 06/14/24 Event Note Event Note: Rapid Response Room: 357 Time: 20:45 Reason for Call: Hypotension, 69/44 Patient presentation: Patient is at rest laying in bed, conversational, states that she does not have any symptoms, denies lightheadedness or any sort of pain. Extremities warm, pulse strong. HR in 70s, Temp 97.1, no fevers. One hour earlier patient had gone to the bathroom and went back into bed, at that time BP was 104/62, HR 92. Patient states that she came to the hospital this morning initially sent by [facility] due to low BP. Subsequently admitted for FATIMAH. She does endorse continued watery diarrhea today. She has not received any pain medications or antihypertensives today. Events: Patient noted to have received 2L so far this admission prior to the rapid. Patient was started on 1L bolus. Still noted hypotensive to 80s/50s, thus additional 500 mL given. Midodrine 10 mg x1 also given. Assessment: Hypotension, possibly secondary to hypovolemia. Review of the patient's home medications, none are associated with hypotension and these are medications she has been taking for some time without change. Aripiprazole (1- 10%) and duloxetine (1%) may be associated with orthostatic hypotension (UpToDate) however patient's orthostatic vitals were negative. New orders: IV NS 1000 ml bolus x1, followed by IV LR 500 ml bolus x1, orthostatic vitals, compression socks, repeat CBC, CMP, lactate, procalcitonin Patient was discussed with the attending, Dr. Buenrostro. Toyin Salgado, PGY-2
[2024-06-14] MEDS: ATORVASTATIN CALCIUM 20 MG TABLET 80 MG PO (21:50)
--- NOTE | 2024-06-14 22:09 | PC.NURSE ---
NS bolus complete, VS re-checked: BP 88/58, HR 82, no c/o any distress or discomfort. Dr. Fuller was notified, no new orders at this time. said to recheck VS in 1 hour.
[2024-06-14 22:51] LABS: Lactate (Lactic Acid) 0.6 mMol/L (0.4-2.0)
[2024-06-14 23:00] LABS: Basophils % (Auto) 0 % (0-2.5); Eosinophils % (Auto) 0 % (0-10); Hematocrit 25.1 % (36.0-46.0); Immature Granulocytes % (Auto) 0 % (0-0); Immature Granulocytes Auto 0.03 Thou/mm3 (0.00-0.00); Lymphocytes # (Auto) 1.5 Thou/mm3 (1.0-4.8); Lymphocytes % (Auto) 20 % (10-50); Mean Corpuscular HGB Conc 31.9 g/dl (31.0-37.0); Mean Corpuscular Hemoglobin 23.9 pg (25.0-35.0); Mean Corpuscular Volume 75 fL (80-100); Monocytes # (Auto) 0.5 Thou/mm3 (0.0-0.8); Monocytes % (Auto) 7 % (0-12); Neutrophils # (Auto) 5.3 Thou/mm3 (1.8-7.7); Neutrophils % (Auto) 72 % (37-80); Nucleated Red Blood Cell % 0 /100 WBC (0); Platelet Count 507 Thou/mm3 (140-440); RDW Standard Deviation 45.6 fL (36.4-46.3); Red Blood Count 3.35 Miln/mm3 (4.00-5.20); White Blood Count 7.4 Thou/mm3 (3.6-11.0)
[2024-06-14] MEDS: MIDODRINE 5 MG TABLET 10 MG PO (23:25)
[2024-06-14 23:27] LABS: Alanine Aminotransferase 21 U/L (10-49); Albumin/Globulin Ratio 1.3 (1.2-2.2); Alkaline Phosphatase 106 U/L (46-116); Anion Gap 9 (7-16); Aspartate Amino Transferase 23 U/L (0-34); BUN/Creatinine Ratio 26 Ratio (12-20); Bilirubin,Total 0.3 mg/dL (0.3-1.2); Blood Urea Nitrogen 34 mg/dL (9-23); Calcium 7.7 mg/dL (8.3-10.6); Calcium (Corrected) 8.5 mg/dL (8.5-10.1); Carbon Dioxide 18.5 mMol/L (20.0-31.0); Chloride 110 mMol/L (98-107); Creatinine (Component) 1.3 mg/dL (0.6-1.3); Estimated Creatinine Clearance 40.3 mL/min (>60); Globulin 2.4 gm/dL (2.3-3.5); Glucose 74 mg/dL (74-106); Osmolality,Calculated 280 (275-295); Potassium 3.9 mMol/L (3.4-5.1); Sodium 137 mMol/L (136-145); Total Protein 5.4 gm/dL (5.7-8.2); eGFR 47 See Note
[2024-06-14 23:32] LABS: Procalcitonin 0.17 ng/ml (0.0-0.49)
[2024-06-15] VITALS (11 sets, daily range): BP systolic 81–128; BP diastolic 53–84; PULSE 74–110; RESP 16–19; TEMP 36.1–36.7; O2SAT 94–99; BMI 26.4
--- NOTE | 2024-06-15 00:17 | PC.NURSE ---
Dr. Salgado made aware of orthostatic vitals signs results. MD to put in an order.
--- NOTE | 2024-06-15 00:22 | PC.NURSE ---
RAPHAEL hose applied to patient's bilateral legs.
[2024-06-15] MEDS: RINGERS LACTATED 1000 ML 1,000 ML 999 ML IV (00:49)
[2024-06-15] MEDS: HEPARIN SOD INJ 5000 UNIT/ML VIAL SC ×3 (05:41→21:36)
[2024-06-15] MEDS: GABAPENTIN 300 MG CAPSULE PO ×3 (05:41→21:36)
[2024-06-15 06:24] LABS: Magnesium 1.9 mg/dL (1.6-2.6)
[2024-06-15] MEDS: SODIUM CHLORIDE 0.9% 1000 ML 1,000 ML 150 ML IV (06:28)
--- NOTE | 2024-06-15 07:31 | ESPR_ITS ---
Documentation for date of: 06/15/24 Subjective Subjective Interval history: Overnight patient had a rapid follow-up blood pressure, improved after 1.5 L and MIDODRINE 10 mg x 1. She was otherwise asymptomatic. Doing well today. No new complaints. Tolerating oral intake without nausea or vomiting. Denies fever, chills, headaches, chest pain, sob, cough, GI or urinary symptoms. Exam Vital Signs Temp Pulse Resp BP Pulse Ox O2 Del Method O2 Flow Rate 97.2 F 74 19 96/67 95 Room Air 4 06/15/24 05:52 06/15/24 05:52 06/15/24 05:52 06/15/24 05:52 06/15/24 05:52 06/15/24 05:52 06/14/24 11:11 Narrative Exam GENERAL * Normal appearing middle-aged female, NAD, on room air HEENT * NCAT.?MAGDA. Oral mucosa is moist. Patent Nares NECK * Supple, nontender, no thyromegaly, no meningismus, no JVD, no step offs CHEST * RRR, no m/g/r * CTAB, no w/r/r. Symmetrical chest rise. No intercostal subcostal retraction * Atraumatic, nontender, no crepitus, symmetrical expansion. ABDOMEN * Soft, flat, nontender. No guarding/rebound tenderness/masses. * Bowel sounds presents EXTREMITIES * Nontender, no cyanosis, no edema * No edema/cyanosis.? SKIN * Warm and dry, no jaundice/rashes. NEUROMUSCULAR * No lumbar or midline, no CVA, no paraspinal muscle spasm or tenderness. * Moves all 4 extremities well, with full ROM and good CSM. * RASHEED x4, CN II-XII grossly intact. * No focal neurologic deficits. PSYCHIATRY * Normal mood and affect, cooperative, no SI or HI or hallucinations. Objective Labs 06/16/24 05:02 06/16/24 05:02 Labs: Laboratory Results - last 24 hr 06/14/24 06/14/24 06/14/24 11:25 14:29 22:39 WBC 13.4 H 7.4 D RBC 3.92 L 3.35 L Hgb 9.4 L 8.0 L Hct 30.2 L 25.1 L MCV 77 L 75 L MCH 24.0 L 23.9 L MCHC 31.1 31.9 RDW Std Deviation 46.9 H 45.6 Plt Count 673 H 507 H D Neut % (Auto) 81 H 72 Lymph % (Auto) 9 L 20 [place] % (Auto) 9 7 Eos % (Auto) 0 0 Baso % (Auto) 0 0 Neut # (Auto) 10.9 H 5.3 Lymph # (Auto) 1.3 1.5 [place] # (Auto) 1.2 H 0.5 Eos # (Auto) 0.0 0.0 Baso # (Auto) 0.0 0.0 Immature Gran # (Auto) 0.09 H 0.03 H Absolute Nucleated RBC 0.00 0.00 Immature Gran % 1 H 0 Nucleated RBC % 0 0 PT 10.3 INR 0.9 APTT 25.8 Sodium 133 L 137 Potassium 3.0 L 3.9 D Chloride 98 110 H Carbon Dioxide 20.8 18.5 L Anion Gap 14 9 BUN 54 H 34 H Creatinine 3.2 H 1.3 D Estim Creat Clear Calc 15.3 L 40.3 L eGFR 16 L 47 L BUN/Creatinine Ratio 17 26 H Glucose 65 L 74 Calculated Osmolality 279 280 Lactic Acid 0.6 Calcium 8.8 7.7 L Corrected Calcium 8.8 8.5 Magnesium 2.2 Total Bilirubin 0.2 L 0.3 AST 33 23 ALT 31 21 Alkaline Phosphatase 142 H 106 D Lactate Dehydrogenase 247 H Troponin I < 0.020 B-Natriuretic Peptide < 20 Total Protein 7.2 5.4 L Albumin 4.3 3.0 L D Globulin 2.9 2.4 Albumin/Globulin Ratio 1.5 1.3 Procalcitonin 0.17 Ur Collection Type Clean Catch Urine Color Lt-Yellow Urine Clarity Clear Urine pH 6.0 Ur Specific [place] 1.014 Urine Protein 1+ A Urine Glucose (UA) Negative Urine Ketones Negative Urine Blood Negative Urine Nitrite Negative Urine Bilirubin Negative Urine Urobilinogen (Auto) Negative Ur Leukocyte Esterase Negative Urine RBC 1 Urine WBC 3 Ur Squamous Epith Cells 1 Urine Bacteria None Hyaline Casts < 1 Urine Opiates Screen Negative Urine Fentanyl Screen Negative Ur Barbiturates Screen Negative U Amphetamin/Meth Scrn Negative U Benzodiazepines Scrn Negative U Cocaine Metab Screen Negative U Marijuana (THC) Screen Positive A 06/15/24 04:48 WBC RBC Hgb Hct MCV MCH MCHC RDW Std Deviation Plt Count Neut % (Auto) Lymph % (Auto) [place] % (Auto) Eos % (Auto) Baso % (Auto) Neut # (Auto) Lymph # (Auto) [place] # (Auto) Eos # (Auto) Baso # (Auto) Immature Gran # (Auto) Absolute Nucleated RBC Immature Gran % Nucleated RBC % PT INR APTT Sodium Potassium Chloride Carbon Dioxide Anion Gap BUN Creatinine Estim Creat Clear Calc eGFR BUN/Creatinine Ratio Glucose Calculated Osmolality Lactic Acid Calcium Corrected Calcium Magnesium 1.9 Total Bilirubin AST ALT Alkaline Phosphatase Lactate Dehydrogenase Troponin I B-Natriuretic Peptide Total Protein Albumin Globulin Albumin/Globulin Ratio Procalcitonin Ur Collection Type Urine Color Urine Clarity Urine pH Ur Specific [place] Urine Protein Urine Glucose (UA) Urine Ketones Urine Blood Urine Nitrite Urine Bilirubin Urine Urobilinogen (Auto) Ur Leukocyte Esterase Urine RBC Urine WBC Ur Squamous Epith Cells Urine Bacteria Hyaline Casts Urine Opiates Screen Urine Fentanyl Screen Ur Barbiturates Screen U Amphetamin/Meth Scrn U Benzodiazepines Scrn U Cocaine Metab Screen U Marijuana (THC) Screen Quality Measures Quality Measures none Assessment & Plan Assessment Current Active Medications: Generic Name Dose Route Start Last Admin Trade Name Freq PRN Reason Stop Dose Admin Acetaminophen 650 mg 06/14/24 13:01 Acetaminophen 325 Mg Tablet PO 07/14/24 13:00 Q6H PRN PAIN SCALE 1-3 (mild Acetaminophen 650 mg 06/14/24 13:01 Acetaminophen 325 Mg Tablet PO 07/14/24 13:00 Q6H PRN Fever >100 Hydrocodone Bitart/Acetaminophen 1 tab 06/14/24 13:01 Hydrocodone/Apap 10/325 Tab PO 06/19/24 13:00 Q4HR PRN PAIN SCALE 7-10 (Severe Aripiprazole 10 mg 06/14/24 13:45 06/14/24 17:51 Aripiprazole 5 Mg Tablet PO 07/14/24 13:44 10 mg QDAY HELENA Administration Atorvastatin Calcium 80 mg 06/14/24 21:00 06/14/24 21:50 Atorvastatin Calcium 20 Mg Tablet PO 07/14/24 20:59 80 mg HS HELENA Administration Bupropion HCl 300 mg 06/15/24 09:00 Bupropion Hcl 100 Mg Tablet PO 07/15/24 08:59 QDAY HELENA Dextrose 25 ml 06/14/24 13:31 Dextrose 50%-Water Inj 50 Ml Syringe IV 07/14/24 13:30 Q15MIN PRN BG 50-70 responsive npo pt Dextrose 50 ml 06/14/24 13:31 Dextrose 50%-Water Inj 50 Ml Syringe IV 07/14/24 13:30 Q15MIN PRN BG <50 OR BG <70 & pt unresponsive Duloxetine HCl 60 mg 06/14/24 13:45 06/14/24 17:51 Duloxetine Hcl 30 Mg Capsule PO 07/14/24 13:44 60 mg QDAY HELENA Administration Gabapentin 300 mg 06/14/24 14:00 06/15/24 05:41 Gabapentin 300 Mg Capsule PO 07/14/24 13:59 300 mg TID HELENA Administration Glucagon 1 mg 06/14/24 13:31 Glucagon Inj 1 Mg Vial IM Q15MIN PRN BG <70, and no IV access Heparin Sodium (Porcine) 5,000 unit 06/14/24 14:00 06/15/24 05:41 Heparin Sod Inj 5000 Unit/Ml Vial SC 06/28/24 13:59 5,000 unit Q8HR HELENA Administration Sodium Chloride 1,000 mls @ 150 mls/hr 06/14/24 11:57 06/15/24 06:28 Ns IV 06/15/24 11:56 150 mls/hr .Q6H40M HELENA Administration Insulin Human Regular 0 unit 06/14/24 17:00 06/14/24 18:10 Insulin Hum Regular 1 Unit/0.01 Ml (Per Unit) SC 07/14/24 16:59 Not Given AC HELENA Protocol Ondansetron HCl 4 mg 06/14/24 13:01 Ondansetron Inj 2 Mg/Ml Inj 2 Ml IV 07/14/24 13:00 Q6H PRN NAUSEA OR VOMITING Protocol Oxycodone/Acetaminophen 1 tab 06/14/24 13:01 Oxycodone/Apap 5/325 Tablet PO 06/19/24 13:00 Q6H PRN PAIN SCALE 4-6 (Moderate Pantoprazole Sodium 40 mg 06/15/24 09:00 Pantoprazole Inj 40 Mg Vial IVP 07/15/24 08:59 QDAY HELENA Trazodone HCl 150 mg 06/14/24 13:40 Trazodone Hcl 50 Mg Tablet PO 07/14/24 13:39 HS HELENA Plan In summary: 59-year-old female with PMHx of HTN, T2DM, GERD, previous SBO, depression, history of gastric bypass and gastric sleeve presenting with intractable nausea leading to dizziness. Admitted for FATIMAH and further workup. Had a rapid overnight for hypotension, BP 70/55, HR 70, otherwise asymptomatic. She was given 1.5 L and MIDODRINE 10 mg x 1. BP improved, currently 97/69. Will continue to monitor blood pressure. Will keep patient for another day until BP stable. Prerenal FATIMAH (resolved) Hypotension Hypokalemia In setting of diarrhea x 1 week. Appears dehydrated on exam. Reports decreased urine output. Patient CR 2.2, GFR 16. Last renal panel from 04/29/2024 was normal. Admission BP 88/60 in settings of GI loss. Potassium 3.0 on admission, most likely GI loss, less likely LISINOPRIL as she was on a small dose and only recently restarted LISINOPRIL. Given 1 L bolus, BP, improving. ? Continue normal saline at 150 cc an hour ? Continue repleted potassium as needed ? Renally dose meds, avoid overdiuresis and NEPHROTOXINS. ? Daily CMP ? Recommended holding home MOUNJARO which is associated with hypotension. ? Recommended holding home LISINOPRIL until seen by PCP Intractable diarrhea Possible Dumping Syndrome ? Gastritis Dizziness GERD S/p gastric bypass and gastric sleeve Presenting with 1 week of intractable dizziness and lightheadedness in the setting of worsening diarrhea. History of chronic diarrhea, worsened over the last week. Previously worked up for diarrhea or negative. Afebrile, no chills, no food allergy, no abnormal weight changes, not related to eating, no recent travel or sick exposure. Afebrile. No leukocytosis. Most likely viral gastritis. ? Fluid support as above ? ONDANSETRON PRN ? Recommended holding home METFORMIN as it can cause worsening diarrhea. ? She has an appointment with GI at the end of the month. HTN HLD Had previously stopped previously LISINOPRIL 5 mg. PCP recently restarted her on a higher dose of 10 mg. Patient attributed her dizziness to LISINOPRIL which is less likely, at a low dose and has only taken 1 tablet so far. Currently BP soft. ? Resumed home ATORVASTATIN 80 mg daily ? Daily vitals ? Restart ANTIHYPERTENSIVE as indicated T2DM GLUCOSE 65 on admission. Likely in settings of poor oral intake and diarrhea. A1c 6.2 from 04/2024. ? Holding home METFORMIN ? Holding home MOUNJARO ? INSULIN sliding scale Anxiety and depression Chronic pain ? Continue home DULOXETINE 60 mg daily ? Continue home ARIPRAZOLE 10 mg daily ? Continue home BUPROPION 300 mg daily ? Continue home GABAPENTIN 300 mg TID ? HOLDING home TRAZODONE 150 mg daily HS in settings of dizziness Health maintenance Diet: Renal, CHO consistent GI prophylaxis: Not indicated DVT prophylaxis: HEPARIN Antibiotics: Not indicated CODE STATUS: Full code Disposition: Will likely discharge tomorrow if BP is stable. Senior Resident Attestation: The patient was interviewed and examined at the bedside this morning. She reported she is doing well. Overnight, MANAGER CLINICAL RESEARCH was called due to hypotension. She was given 1.5 L of IV bolus crystalloid fluid and midodrine 10 Mg x 1. The patient denied any lightheadedness, dizziness, headache, nausea or vomiting, fever or chills, chest pain or SOB, any urinary or bowel symptoms. Physical exam was significant for blood pressure 97/69, with pulse 94, saturating 98% on room air. Physical examination was unremarkable. Labs are significant for chronic anemia with hemoglobin 8.3, with MCV 77 and patient was started on ferrous sulfate. FATIMAH resolved. During discharge, we will discontinue lisinopril, metformin likely causing diarrhea as a side effect and Mounjaro which is thought to be causing hypotension for this patient. The patient will follow-up with her GI doctor for possible IBS. I discussed with and supervised the sports intern physician involved in the care of this patient. I personally saw and examined the patient and discussed the assessment and plan with the entire medicine team, including my attending. I agree with the assessment and plan as documented above. Juan Antonio Kuo MD PGY2 Internal Medicine Attending Provider Attestation/Addendum I have examined the patient, reviewed labs and imaging findings, discussed the case with the resident(s), and reviewed entered orders. I agree with the plan of care as outlined in this note, with these additional summaries/recommendations: Patient seen at bedside. Overnight patient had rapid response for hypotension. She was given additional fluid boluses and midodrine 10 mg x 1. Patient's blood pressure continued to be soft throughout the night and mildly improved this morning with BP 97/69. We will place fluids on hold for now to avoid volume overload and patient encouraged to increase oral fluid intake. Patient still endorses watery diarrhea although appears more chronic in nature. Discussed with patient that we will hold metformin and Mounjaro on discharge. She will need to follow-up with her rn referral. Continue to hold lisinopril. Patient was found to have significant FATIMAH on admission with creatinine 3.2 and BUN 54. Today creatinine is back down to 1.0 and BUN 30. Continue insulin sliding scale for diabetes mellitus type 2 which is well-controlled. Continue home psychiatric medicines and patient's mood appears stable. Previous A1c 6.2%. We will continue to monitor patient's hemodynamic status closely and if no further episodes then anticipate discharge in the next [address] Du
[2024-06-15] MEDS: PANTOPRAZOLE INJ 40 MG VIAL IVP (09:34)
[2024-06-15] MEDS: DULoxetine HCL 30 MG CAPSULE 60 MG PO (09:34)
[2024-06-15] MEDS: ARIPiprazole 5 MG TABLET 10 MG PO (09:34)
[2024-06-15 09:59] LABS: Alanine Aminotransferase 22 U/L (10-49); Albumin, Serum 2.8 gm/dL (3.4-4.8); Albumin/Globulin Ratio 1.3 (1.2-2.2); Alkaline Phosphatase 107 U/L (46-116); Anion Gap 6 (7-16); Aspartate Amino Transferase 26 U/L (0-34); BUN/Creatinine Ratio 30 Ratio (12-20); Bilirubin,Total 0.3 mg/dL (0.3-1.2); Blood Urea Nitrogen 30 mg/dL (9-23); Carbon Dioxide 22.8 mMol/L (20.0-31.0); Chloride 108 mMol/L (98-107); Estimated Creatinine Clearance 52.3 mL/min (>60); Globulin 2.2 gm/dL (2.3-3.5); Glucose 73 mg/dL (74-106); Osmolality,Calculated 279 (275-295); Potassium 4.5 mMol/L (3.4-5.1); Sodium 137 mMol/L (136-145); eGFR > 60 See Note
[2024-06-15] MEDS: BuPROPion HCL 100 MG TABLET 300 MG PO (10:09)
--- NOTE | 2024-06-15 12:43 | PC.SS ---
Patient is alert/oriented. She is independent with ADL's. She will be residing alone. Patient states upon discharge she will be going to her sister's home. Then she will be moving in alone to her own place. Patient was admitted for FATIMAH. Patient states she may d/c home today. Patient has an o/p bariatric referral as well as GI referral. Patient pcp: Dr. Brady at [facility] and last appt. was a few weeks ago. Patient pharmacy: [facility]. Family to transport home. Alt medical decision maker is her sister, Andie.
[2024-06-15 12:59] LABS: Basophils % (Auto) 0 % (0-2.5); Eosinophils % (Auto) 1 % (0-10); Hematocrit 26.9 % (36.0-46.0); Immature Granulocytes % (Auto) 0 % (0-0); Immature Granulocytes Auto 0.02 Thou/mm3 (0.00-0.00); Lymphocytes # (Auto) 1.4 Thou/mm3 (1.0-4.8); Lymphocytes % (Auto) 24 % (10-50); Mean Corpuscular HGB Conc 30.9 g/dl (31.0-37.0); Mean Corpuscular Hemoglobin 23.9 pg (25.0-35.0); Mean Corpuscular Volume 77 fL (80-100); Monocytes # (Auto) 0.5 Thou/mm3 (0.0-0.8); Monocytes % (Auto) 8 % (0-12); Neutrophils % (Auto) 67 % (37-80); Nucleated Red Blood Cell % 0 /100 WBC (0); Platelet Count 565 Thou/mm3 (140-440); RDW Standard Deviation 47.3 fL (36.4-46.3); Red Blood Count 3.48 Miln/mm3 (4.00-5.20)
[2024-06-15 13:00] LABS: Hemoglobin 8.3 g/dL (12.0-16.0)
[2024-06-15] MEDS: ATORVASTATIN CALCIUM 20 MG TABLET 80 MG PO (21:40)
[2024-06-16] VITALS: BP 96/75; PULSE 97; RESP 16; TEMP 36.4; O2SAT 96
[2024-06-16 00:25] VITALS: PULSE 95
[2024-06-16 04:00] VITALS: BP 106/66; PULSE 90; RESP 18; TEMP 36.4; O2SAT 99
[2024-06-16 04:30] VITALS: PULSE 82
[2024-06-16] MEDS: GABAPENTIN 300 MG CAPSULE PO (05:12)
[2024-06-16] MEDS: HEPARIN SOD INJ 5000 UNIT/ML VIAL SC (05:12)
[2024-06-16 05:51] LABS: Basophils % (Auto) 0 % (0-2.5); Eosinophils # (Auto) 0.1 Thou/mm3 (0.0-0.5); Eosinophils % (Auto) 1 % (0-10); Immature Granulocytes % (Auto) 0 % (0-0); Lymphocytes # (Auto) 1.7 Thou/mm3 (1.0-4.8); Monocytes # (Auto) 0.6 Thou/mm3 (0.0-0.8); Nucleated Red Blood Cell % 0 /100 WBC (0)
[2024-06-16 05:52] LABS: Hematocrit 24.5 % (36.0-46.0); Immature Granulocytes Auto 0.02 Thou/mm3 (0.00-0.00); Lymphocytes % (Auto) 30 % (10-50); Mean Corpuscular HGB Conc 31.8 g/dl (31.0-37.0); Mean Corpuscular Volume 75 fL (80-100); Monocytes % (Auto) 11 % (0-12); Neutrophils # (Auto) 3.2 Thou/mm3 (1.8-7.7); Neutrophils % (Auto) 57 % (37-80); Platelet Count 535 Thou/mm3 (140-440); Red Blood Count 3.25 Miln/mm3 (4.00-5.20); White Blood Count 5.6 Thou/mm3 (3.6-11.0)
[2024-06-16 06:35] LABS: Hemoglobin 7.8 g/dL (12.0-16.0)
[2024-06-16 06:38] LABS: Alanine Aminotransferase 17 U/L (10-49); Albumin, Serum 3.2 gm/dL (3.4-4.8); Albumin/Globulin Ratio 1.5 (1.2-2.2); Alkaline Phosphatase 99 U/L (46-116); Anion Gap 7 (7-16); Aspartate Amino Transferase 25 U/L (0-34); BUN/Creatinine Ratio 27 Ratio (12-20); Bilirubin,Total 0.3 mg/dL (0.3-1.2); Blood Urea Nitrogen 19 mg/dL (9-23); Calcium 8.5 mg/dL (8.3-10.6); Calcium (Corrected) 9.1 mg/dL (8.5-10.1); Carbon Dioxide 26.1 mMol/L (20.0-31.0); Chloride 104 mMol/L (98-107); Creatinine (Component) 0.7 mg/dL (0.6-1.3); Estimated Creatinine Clearance 72.9 mL/min (>60); Globulin 2.2 gm/dL (2.3-3.5); Glucose 87 mg/dL (74-106); Magnesium 1.6 mg/dL (1.6-2.6); Osmolality,Calculated 275 (275-295); Phosphorous 1.5 mg/dL (2.4-5.1); Potassium 3.8 mMol/L (3.4-5.1); Sodium 137 mMol/L (136-145); Total Protein 5.4 gm/dL (5.7-8.2); eGFR > 60 See Note
--- NOTE | 2024-06-16 07:45 | PD.RESPRO ---
Documentation for date of: 06/16/24 Exam Vital Signs Temp Pulse Resp BP Pulse Ox O2 Del Method O2 Flow Rate 97.6 F 82 18 106/66 99 Room Air 4 06/16/24 04:00 06/16/24 04:30 06/16/24 04:00 06/16/24 04:00 06/16/24 04:00 06/16/24 04:00 06/14/24 11:11 Objective Labs 06/16/24 05:02 06/16/24 05:02 Labs: Laboratory Results - last 24 hr 06/15/24 06/16/24 04:48 05:02 WBC 6.0 5.6 RBC 3.48 L 3.25 L Hgb 8.3 L 7.8 L Hct 26.9 L 24.5 L MCV 77 L 75 L MCH 23.9 L 24.0 L MCHC 30.9 L 31.8 RDW Std Deviation 47.3 H 45.0 Plt Count 565 H D 535 H D Neut % (Auto) 67 57 Lymph % (Auto) 24 30 [place] % (Auto) 8 11 Eos % (Auto) 1 1 Baso % (Auto) 0 0 Neut # (Auto) 4.0 3.2 Lymph # (Auto) 1.4 1.7 [place] # (Auto) 0.5 0.6 Eos # (Auto) 0.0 0.1 Baso # (Auto) 0.0 0.0 Immature Gran # (Auto) 0.02 H 0.02 H Absolute Nucleated RBC 0.00 0.00 Immature Gran % 0 0 Nucleated RBC % 0 0 Sodium 137 137 Potassium 4.5 D 3.8 D Chloride 108 H 104 Carbon Dioxide 22.8 26.1 Anion Gap 6 L 7 BUN 30 H 19 Creatinine 1.0 0.7 Estim Creat Clear Calc 52.3 L 72.9 eGFR > 60 > 60 BUN/Creatinine Ratio 30 H 27 H Glucose 73 L 87 Calculated Osmolality 279 275 Calcium 8.0 L 8.5 Corrected Calcium 9.0 9.1 Phosphorus 1.5 L Magnesium 1.6 Total Bilirubin 0.3 0.3 AST 26 25 ALT 22 17 Alkaline Phosphatase 107 99 Total Protein 5.0 L 5.4 L Albumin 2.8 L 3.2 L Globulin 2.2 L 2.2 L Albumin/Globulin Ratio 1.3 1.5 Quality Measures Quality Measures none Assessment & Plan Assessment Current Active Medications: Generic Name Dose Route Start Last Admin Trade Name Milka PRN Reason Stop Dose Admin Acetaminophen 650 mg 06/14/24 13:01 Acetaminophen 325 Mg Tablet PO 07/14/24 13:00 Q6H PRN PAIN SCALE 1-3 (mild Acetaminophen 650 mg 06/14/24 13:01 Acetaminophen 325 Mg Tablet PO 07/14/24 13:00 Q6H PRN Fever >100 Hydrocodone Bitart/Acetaminophen 1 tab 06/14/24 13:01 Hydrocodone/Apap 10/325 Tab PO 06/19/24 13:00 Q4HR PRN PAIN SCALE 7-10 (Severe Aripiprazole 10 mg 06/14/24 13:45 06/15/24 09:34 Aripiprazole 5 Mg Tablet PO 07/14/24 13:44 10 mg QDAY HELENA Administration Atorvastatin Calcium 80 mg 06/14/24 21:00 06/15/24 21:40 Atorvastatin Calcium 20 Mg Tablet PO 07/14/24 20:59 80 mg HS HELENA Administration Bupropion HCl 300 mg 06/15/24 09:00 06/15/24 10:09 Bupropion Hcl 100 Mg Tablet PO 07/15/24 08:59 300 mg QDAY HELENA Administration Dextrose 25 ml 06/14/24 13:31 Dextrose 50%-Water Inj 50 Ml Syringe IV 07/14/24 13:30 Q15MIN PRN BG 50-70 responsive npo pt Dextrose 50 ml 06/14/24 13:31 Dextrose 50%-Water Inj 50 Ml Syringe IV 07/14/24 13:30 Q15MIN PRN BG <50 OR BG <70 & pt unresponsive Duloxetine HCl 60 mg 06/14/24 13:45 06/15/24 09:34 Duloxetine Hcl 30 Mg Capsule PO 07/14/24 13:44 60 mg QDAY HELENA Administration Gabapentin 300 mg 06/14/24 14:00 06/16/24 05:12 Gabapentin 300 Mg Capsule PO 07/14/24 13:59 300 mg TID HELENA Administration Glucagon 1 mg 06/14/24 13:31 Glucagon Inj 1 Mg Vial IM Q15MIN PRN BG <70, and no IV access Heparin Sodium (Porcine) 5,000 unit 06/14/24 14:00 06/16/24 05:12 Heparin Sod Inj 5000 Unit/Ml Vial SC 06/28/24 13:59 5,000 unit Q8HR HELENA Administration Insulin Human Regular 0 unit 06/14/24 17:00 06/16/24 07:23 Insulin Hum Regular 1 Unit/0.01 Ml (Per Unit) SC 07/14/24 16:59 Not Given AC [facility] Protocol Ondansetron HCl 4 mg 06/14/24 13:01 Ondansetron Inj 2 Mg/Ml Inj 2 Ml IV 07/14/24 13:00 Q6H PRN NAUSEA OR VOMITING Protocol Oxycodone/Acetaminophen 1 tab 06/14/24 13:01 Oxycodone/Apap 5/325 Tablet PO 06/19/24 13:00 Q6H PRN PAIN SCALE 4-6 (Moderate Pantoprazole Sodium 40 mg 06/15/24 09:00 06/15/24 09:34 Pantoprazole Inj 40 Mg Vial IVP 07/15/24 08:59 40 mg QDAY HELENA Administration Trazodone HCl 150 mg 06/14/24 13:40 Trazodone Hcl 50 Mg Tablet PO 07/14/24 13:39 HS [facility] Plan In summary: 59-year-old female with PMHx of HTN, T2DM, GERD, previous SBO, depression, history of gastric bypass and gastric sleeve presenting with intractable nausea leading to dizziness. Admitted for FATIMAH and further workup. BP 106/66, vitals okay Hgb 7.8, dilutional Phos 1.5, gave 45 K-PHOS MRSA negative, 48 blood culture negative Prerenal FATIMAH (resolved) Hypotension Hypokalemia In setting of diarrhea x 1 week. Appears dehydrated on exam. Reports decreased urine output. Patient CR 2.2, GFR 16. Last renal panel from 04/29/2024 was normal. Admission BP 88/60 in settings of GI loss. Potassium 3.0 on admission, most likely GI loss, less likely LISINOPRIL as she was on a small dose and only recently restarted LISINOPRIL. Given 1 L bolus, BP, improving. ? Continue normal saline at 150 cc an hour ? Continue repleted potassium as needed ? Renally dose meds, avoid overdiuresis and NEPHROTOXINS. ? Daily CMP ? Recommended holding home MOUNJARO which is associated with hypotension. ? Recommended holding home LISINOPRIL until seen by PCP Intractable diarrhea Possible Dumping Syndrome ? Gastritis Dizziness GERD S/p gastric bypass and gastric sleeve Presenting with 1 week of intractable dizziness and lightheadedness in the setting of worsening diarrhea. History of chronic diarrhea, worsened over the last week. Previously worked up for diarrhea or negative. Afebrile, no chills, no food allergy, no abnormal weight changes, not related to eating, no recent travel or sick exposure. Afebrile. No leukocytosis. Most likely viral gastritis. ? Fluid support as above ? ONDANSETRON PRN ? Recommended holding home METFORMIN as it can cause worsening diarrhea. ? She has an appointment with GI at the end of the month. HTN HLD Had previously stopped previously LISINOPRIL 5 mg. PCP recently restarted her on a higher dose of 10 mg. Patient attributed her dizziness to LISINOPRIL which is less likely, at a low dose and has only taken 1 tablet so far. Currently BP soft. ? Resumed home ATORVASTATIN 80 mg daily ? Daily vitals ? Restart ANTIHYPERTENSIVE as indicated T2DM GLUCOSE 65 on admission. Likely in settings of poor oral intake and diarrhea. A1c 6.2 from 04/2024. ? Holding home METFORMIN ? Holding home MOUNJARO ? INSULIN sliding scale Anxiety and depression Chronic pain ? Continue home DULOXETINE 60 mg daily ? Continue home ARIPRAZOLE 10 mg daily ? Continue home BUPROPION 300 mg daily ? Continue home GABAPENTIN 300 mg TID ? HOLDING home TRAZODONE 150 mg daily HS in settings of dizziness Health maintenance Diet: Renal, CHO consistent GI prophylaxis: Not indicated DVT prophylaxis: HEPARIN Antibiotics: Not indicated CODE STATUS: Full code Disposition: Will likely discharge tomorrow if BP is stable.
[2024-06-16 08:00] VITALS: BP 125/80; PULSE 83; PULSE 88; RESP 20; TEMP 36.7; O2SAT 99
[2024-06-16] MEDS: POT PHOS 15 mMol in NS 250 ML 15 MMOL/250 ML BAG 62.5 MMOL IV (08:39)
[2024-06-16] MEDS: DULoxetine HCL 30 MG CAPSULE 60 MG PO (08:40)
[2024-06-16] MEDS: FERROUS SULF 325 MG TABLET PO (08:40)
[2024-06-16] MEDS: ARIPiprazole 5 MG TABLET 10 MG PO (08:40)
[2024-06-16] MEDS: BuPROPion HCL 100 MG TABLET 300 MG PO (08:40)
[2024-06-16] MEDS: PANTOPRAZOLE INJ 40 MG VIAL IVP (08:40)
--- NOTE | 2024-06-16 11:43 | PC.NURSE ---
Dr. Du and team C made aware of blood sugar 69mg/dl, orange Juice given and eating cookie, orders to check bedside glucose before discharge.
[2024-06-16 12:00] VITALS: BP 127/89; PULSE 85; PULSE 93; RESP 15; TEMP 36.4; O2SAT 95
--- NOTE | 2024-06-16 13:16 | ESDS_ITS ---
Planned Discharge Date 06/16/24 DS: Providers Provider Date of admission: 06/14/24 13:01 Primary care physician: DIONNE Perea Admitting Provider: Alfonso Kaminski MD Attending Provider on Admission: Wild Du MD Consults: 06/15/24 10:04 Referral Registered Dietitian Routine Comment: Attending Provider on DC: Wild Du MD Discharging Provider: Wild Du MD DS: Diagnosis Problem List Completed Was Problem List Reviewed/Reconciled?: Yes Hospital Course Hospital Course Hospital course: This is a 59-year-old female with PMHx of HTN, T2DM, GERD, previous SBO, depression, history of gastric bypass and gastric sleeve presenting with intractable nausea, diarrhea leading to dizziness. Admitted for intractable d iarrhea, FATIMAH and hypotension. Patient was found to be volume depleted for which she was started on fluids. We also discontinued her home meds including LISINOPRIL, METOPROLOL and MOUNJARO. Her symptoms improved at the time of discharge. Bowel movements were normal, no diarrhea. FATIMAH had resolved. She has an appointment with bariatrics and GI this month. Recommended workup for recurrent diarrhea including dumping syndrome, IBS, food allergies, among others. Patient found to have chronic normocytic anemia for which she started iron supplements. PATIENT INSTRUCTIONS: Please follow-up with your PCP within 1 week of discharge for close monitoring of blood pressure and blood sugar Please follow-up with your microfilm clerk as scheduled your appointment in July 2024 We have stopped your antihypertensive lisinopril 10 Mg daily and metformin thousand Mg twice daily, please discuss regarding switching metformin to Ozempic which would be helpful in your chronic diarrhea. Started on iron tablet 325mg every other day for anemia -Continue with all other medicines as prescribed -Recommended to return back to emergency department if your symptoms persist or does not improve. ADMISSION DIAGNOSES: Prerenal FATIMAH (resolved) Hypotension Hypokalemia Intractable diarrhea Possible Dumping Syndrome ? Gastritis Dizziness GERD S/p gastric bypass and gastric sleeve HTN HLD T2DM Anxiety and depression Chronic pain Patient case was discussed with attending, Wild Du MD and senior residents Dr. Ponce and Dr. Kuo. Mounika Evans, DO PGYI Senior Resident Attestation: I discussed with and supervised the internship coordinator physician involved in the care of this patient. I personally saw and examined the patient and discussed the assessment and plan with the entire medicine team, including my attending. I agree with the discharge plan as documented above. Juan Antonio Kuo MD PGY2 Internal Medicine Time Spent with Patient Time attestation: Total time spent providing and/or coordinating discharge services: Greater than 35 minutes. Exam Vital Signs Temp Pulse Resp BP Pulse Ox O2 Del Method O2 Flow Rate 98.0 F 85 20 125/80 99 Room Air 4 06/16/24 08:00 06/16/24 12:00 06/16/24 08:00 06/16/24 08:00 06/16/24 08:00 06/16/24 08:00 06/14/24 11:11 Narrative Exam GENERAL * Normal appearing middle-aged female, NAD, on room air HEENT * NCAT.?MAGDA. Oral mucosa is moist. Patent Nares NECK * Supple, nontender, no thyromegaly, no meningismus, no JVD, no step offs CHEST * RRR, no m/g/r * CTAB, no w/r/r. Symmetrical chest rise. No intercostal subcostal retraction * Atraumatic, nontender, no crepitus, symmetrical expansion. ABDOMEN * Soft, flat, nontender. No guarding/rebound tenderness/masses. * Bowel sounds presents EXTREMITIES * Nontender, no cyanosis, no edema * No edema/cyanosis.? SKIN * Warm and dry, no jaundice/rashes. NEUROMUSCULAR * No lumbar or midline, no CVA, no paraspinal muscle spasm or tenderness. * Moves all 4 extremities well, with full ROM and good CSM. * RASHEED x4, CN II-XII grossly intact. * No focal neurologic deficits. PSYCHIATRY * Normal mood and affect, cooperative, no SI or HI or hallucinations. Discharge Plan Plan Patient Disposition: HOME (Self Care) Patient condition on transfer: Stable Care Plan Goals: Please follow-up with your PCP within 1 week of discharge for close monitoring of blood pressure and blood sugar Please follow-up with your microfilm clerk as scheduled your appointment in July 2024 We have stopped your antihypertensive lisinopril 10 Mg daily and metformin thousand Mg twice daily, please discuss regarding switching metformin to Ozempic which would be helpful in your chronic diarrhea. Started on iron tablet 325mg every other day for anemia -Continue with all other medicines as prescribed -Recommended to return back to emergency department if your symptoms persist or does not improve. Prescriptions/Referrals Prescriptions/Med Rec: New ferrous sulfate 325 mg (65 mg iron) tablet,delayed release (DR/EC) 325 mg PO Q OTHER DAY Qty: 30 0RF Continued atorvastatin 80 mg tablet 80 mg PO QDAY pantoprazole 40 mg tablet,delayed release (DR/EC) 40 mg PO QDAY Patient Comments: take 1 tablet by mouth once daily gabapentin 300 mg capsule 300 mg PO 3XD Patient Comments: take 1 capsule by mouth three times a day ergocalciferol (vitamin D2) 1,250 mcg (50,000 unit) capsule 1,250 mcg PO 1XD aripiprazole 10 mg tablet 10 mg PO QDAY Patient Comments: take 1 tablet by mouth once daily bupropion HCl 300 mg tablet extended release 24 hr 300 mg PO QDAY Patient Comments: take 1 tablet by mouth every morning duloxetine 60 mg capsule,delayed release(DR/EC) 60 mg PO 1XD Patient Comments: take 1 capsule by mouth once daily hydrocodone-acetaminophen 5-325 mg Tablet 1 tab PO Q6H PRN (Reason: Moderate Pain (Scale Score 5-6)) sucralfate 1 gram Tablet 1 g PO BID trazodone 150 mg tablet 150 mg PO HS Patient Comments: take 1 tablet by mouth at bedtime Discontinued lisinopril 10 mg tablet 10 mg PO QDAY Patient Comments: take 1 tablet by mouth once daily metformin 500 mg tablet extended release 24 hr 1,000 mg PO BID Patient Comments: take 2 tablets by mouth twice a day Referrals: Dot Brady FNP [Primary Care Provider] - Patient/Caregiver Discharge Instructions Discharge Activity: activity as tolerated Education Materials: Anemia Print Language: Tunisian Stand Alone Forms: Milli Award Info., Patient Portal Info Letter Discharge Order Discharge Orders: Discharge (Routine); Ordered 06/16/24 Ordered By: Juan Antonio Kuo Quality Discharge Quality Measures VTE prophylaxis
== END 2024-06-16 14:15 | disposition home or self-care (01) | DRG 469 ==
LOC: SERX 12:24 → SERHOLD 13:16 → S3NX 15:37
PROVIDERS: Internal Medicine; Registered Nurse General Practice; Admitting Provider Student in an Organized Health Care Education/Training Program; Emergency Provider Emergency Medicine; PCP Nurse Practitioner Family; Visit Provider Student in an Organized Health Care Education/Training Program
DX: N17.9 Acute kidney failure, unspecified (principal); I10 Essential (primary) hypertension; E11.9 Type 2 diabetes mellitus without complications; K21.9 Gastro-esophageal reflux disease without esophagitis; F32.A Depression, unspecified; G89.29 Other chronic pain; E87.6 Hypokalemia; I95.9 Hypotension, unspecified; E86.0 Dehydration; A08.4 Viral intestinal infection, unspecified; E78.5 Hyperlipidemia, unspecified; F41.9 Anxiety disorder, unspecified; Z98.84 Bariatric surgery status; Z79.84 Long term (current) use of oral hypoglycemic drugs; D64.9 Anemia, unspecified
CPT/HCPCS: 36415; 80053; 80307; 81001; 83605; 83615; 83735; 83880; 84100; 84145; 84484; 85025; 85610; 85730; 93005; 93225; 96365; 96372; 99285; J1643; J2470; J3480; J7030; J7120; J7999; A9270

== ENCOUNTER 2024-07-16 15:53 | Inpatient (IN) | payer MEDICAID, SELFPAY ==
[2024-07-16] VITALS (11 sets, daily range): BP systolic 103–138; BP diastolic 71–99; PULSE 77–116; RESP 5–19; TEMP 36.6–36.8; O2SAT 94–100; BMI 25.7
--- NOTE | 2024-07-16 16:22 | EKG_ITS ---
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
--- NOTE | 2024-07-16 16:22 | XR_ITS ---
Examination: CT brain head without contrast. 2-D sagittal coronal reconstructions Date and time of exam:July 16, 2024 1742 hours INDICATIONS: Dizziness lightheadedness episodes today CTDI: vol (mGy):45.8 DLP: (mGycm):852 Technique: Multiple CT axial sections of the brain have been obtained, 5 mm slice thickness. Contrast has not been administered. 2-D sagittal, coronal reconstructions have been obtained Low dose protocols were performed. One or more of the following dose reduction techniques were used; automated exposure control, adjustment of the mA and/or KV according to patient size, use of iterative reconstruction technique. Findings: No significant ventricular enlargement. Intra-axial or extra-axial hemorrhage density is not seen. No mass effect or midline shift Basal cisterns are not remarkable. Fourth ventricle is midline. Cranial vault intact. Impression: Negative for acute hemorrhage, mass effect or midline shift Advise clinical correlation and follow-up accordingly
--- NOTE | 2024-07-16 16:23 | EDRME_ITS ---
Rapid Medical Screening Exam [facility] Arrival date/time: 07/16/24 15:53 59-year-old female with a history of hyperlipidemia presents to the emergency room with a chief complaint of a syncopal episode that occurred today while she was in the shower. Patient states she began feeling dizzy and lost consciousness. Patient also states she had another syncopal episode this morning. I have greeted and performed a focused initial assessment of this patient. A comprehensive ED assessment and evaluation of the patient, analysis of all test results, and completion of the medical decision making process will be conducted by additional ED providers. Chief Complaint: Syncope / Near Syncope Vital signs: Vital Signs Temperature 98.2 F 07/16/24 16:16 Pulse Rate 116 H 07/16/24 16:16 Respiratory Rate 18 07/16/24 16:16 Blood Pressure 129/86 H 07/16/24 16:16 Pulse Oximetry (%) 99 07/16/24 16:16 Oxygen Delivery Method Room Air 07/16/24 16:16 Vital signs reviewed by provider: Yes
[2024-07-16] MEDS: MECLIZINE HCL 25 MG TABLET PO (16:41)
[2024-07-16] MEDS: ONDANSETRON ODT 4 MG TABRAP PO (16:41)
[2024-07-16 17:40] LABS: Basophils % (Auto) 0 % (0-2.5); Eosinophils % (Auto) 0 % (0-10); Hematocrit 38.6 % (36.0-46.0); Hemoglobin 12.6 g/dL (12.0-16.0); Immature Granulocytes % (Auto) 1 % (0-0); Immature Granulocytes Auto 0.05 Thou/mm3 (0.00-0.00); Lymphocytes # (Auto) 0.9 Thou/mm3 (1.0-4.8); Lymphocytes % (Auto) 9 % (10-50); Mean Corpuscular HGB Conc 32.6 g/dl (31.0-37.0); Mean Corpuscular Hemoglobin 23.4 pg (25.0-35.0); Mean Corpuscular Volume 72 fL (80-100); Monocytes # (Auto) 0.6 Thou/mm3 (0.0-0.8); Monocytes % (Auto) 6 % (0-12); Neutrophils # (Auto) 8.1 Thou/mm3 (1.8-7.7); Neutrophils % (Auto) 84 % (37-80); Nucleated Red Blood Cell % 0 /100 WBC (0); Platelet Count 626 Thou/mm3 (140-440); Red Blood Count 5.38 Miln/mm3 (4.00-5.20); White Blood Count 9.6 Thou/mm3 (3.6-11.0)
[2024-07-16 18:00] LABS: Alanine Aminotransferase 27 U/L (10-49); Albumin, Serum 5.6 gm/dL (3.4-4.8); Albumin/Globulin Ratio 1.4 (1.2-2.2); Alkaline Phosphatase 191 U/L (46-116); Anion Gap 17 (7-16); Aspartate Amino Transferase 31 U/L (0-34); BUN/Creatinine Ratio 21 Ratio (12-20); Bilirubin,Total 0.6 mg/dL (0.3-1.2); Blood Urea Nitrogen 58 mg/dL (9-23); Calcium 10.5 mg/dL (8.3-10.6); Calcium (Corrected) 10.5 mg/dL (8.5-10.1); Carbon Dioxide 18.3 mMol/L (20.0-31.0); Chloride 97 mMol/L (98-107); Creatinine (Component) 2.7 mg/dL (0.6-1.3); Estimated Creatinine Clearance 19.9 mL/min (>60); Globulin 3.9 gm/dL (2.3-3.5); Glucose 198 mg/dL (74-106); Osmolality,Calculated 286 (275-295); Potassium 3.8 mMol/L (3.4-5.1); Sodium 132 mMol/L (136-145); Total Protein 9.5 gm/dL (5.7-8.2); Troponin I < 0.020 ng/mL (0.0-0.045); eGFR 19 See Note
--- NOTE | 2024-07-16 18:14 | PD.EDSYNC ---
ED Syncope RME/HPI General Chief Complaint: Syncope / Near Syncope Stated Complaint: NEAR SYCONPE TODAY D/T DIARRHEA AND STOMACH CRAMPS Time Seen by Provider: 07/16/24 18:00 Arrival date/time: 07/16/24 15:53 RME / HPI RME / HPI narrative: 07/16/24 15:53 59-year-old female with a history of hyperlipidemia presents to the emergency room with a chief complaint of a syncopal episode that occurred today while she was in the shower. Patient states she began feeling dizzy and lost consciousness. Patient also states she had another syncopal episode this morning. I have greeted and performed a focused initial assessment of this patient. A comprehensive ED assessment and evaluation of the patient, analysis of all test results, and completion of the medical decision making process will be conducted by additional ED providers. ------ This section includes all my notes and documentations, including HPI, PE, and ED course. Manny Pastrana MD HPI: 59yo female with a history of DM, HTN presents to the ED for a chief complaint of syncope. Patient states she was taking a shower a few hours ago, reporting she started feeling dizzy and passed out. She states she hit the back of her head. She reports she's had nausea and diarrhea for the last several days, minimal oral intake. She denies any cough, fever, chills or any other associated symptoms. No other complaints reported. ROS: All negative except as documented in HPI. Physical Exam: General: Alert and oriented. Appearance of severe malaise noted. Eyes: Conjunctivae and lids clear. EOMI. PERRL. ENT: No nasal congestion. Neck: Supple. Heart: RRR. Lungs: No respiratory distress. Good air movement. No rhonchi, wheezing, rales. Abdomen: Soft and nontender. Legs: No clubbing, cyanosis, edema. Skin: Warm and dry. Neuro: Alert and oriented X 3. Cranial nerves II to XII grossly normal. No peripheral motor deficits. I reviewed all diagnostic test results. My interpretation of the EKG is sinus rhythm with no acute ST?T changes. My review of the head CT report is no acute findings. Blood tests remarkable for BUN 58, CR 2.7. At this point, diagnoses include FATIMAH and dehydration and syncope. Treatment here included IV fluid and Zofran. I discussed the case with our jewelry coater and our hospitalist. About the presentation and exam and diagnostics and treatments here. And need of further care in the hospital. Will accept the patient. Manny Pastrana MD Related Data Home Medications ?Medication ?Instructions ?Recorded ?Confirmed aripiprazole 10 mg tablet 10 mg PO QDAY 04/13/24 06/14/24 atorvastatin 80 mg tablet 80 mg PO QDAY 04/13/24 06/14/24 bupropion HCl 300 mg 24 hr tablet, 300 mg PO QDAY 04/13/24 06/14/24 extended release duloxetine 60 mg capsule,delayed 60 mg PO 1XD 04/13/24 06/14/24 release ergocalciferol (vitamin D2) 1,250 1,250 mcg PO 1XD 04/13/24 06/14/24 mcg (50,000 unit) capsule gabapentin 300 mg capsule 300 mg PO 3XD 04/13/24 06/14/24 pantoprazole 40 mg tablet,delayed 40 mg PO QDAY 04/13/24 06/14/24 release hydrocodone 5 mg-acetaminophen 325 1 tab PO Q6H PRN Moderate Pain 06/14/24 06/14/24 mg tablet (Scale Score 5-6) sucralfate 1 gram tablet 1 g PO BID 06/14/24 06/14/24 trazodone 150 mg tablet 150 mg PO HS 06/14/24 06/14/24 Previous Rx's ?Medication ?Instructions ?Recorded ferrous sulfate 325 mg (65 mg 325 mg PO Q OTHER DAY #30 tabs 06/16/24 iron) tablet,delayed release Allergies Allergy/AdvReac Type Severity Reaction Status Date / Time hydrocodone Allergy Severe Anxiety Verified 07/16/24 15:56 hydromorphone (From Dilaudid) Allergy Severe Hives Verified 07/16/24 15:56 morphine Allergy Severe ITCHINESS Verified 07/16/24 15:56 Review of Systems Review of Systems Systems Reviewed: All systems reviewed, normal except as documented Past Medical History Past Medical History CARDIAC: Positive Hypertension; Negative Cardiac Disorders or Congestive Heart Failure RESPIRATORY: Negative Chronic Obstructive Pulmonary Disease (COPD) or Asthma GENITOURINARY: Negative Renal Disease ENDOCRINE: Positive Diabetes Mellitus Type 2; Negative Diabetes Mellitus Type 1 HEMATOLOGIC: Negative Sickle Cell Disease Surgical History SURGICAL: Positive Abdominal Surgery and Gastric Bypass Surgery Social History SMOKING STATUS: Never smoker SUBSTANCE USE: does not use ED Exam Narrative Physical exam: As noted in HPI. Course Quality Measures none Orders Category Date Time Status Bedside COVID-19 Antigen Test NOW Care 07/16/24 18:45 Active Bedside Influenza A&B Antigen Test NOW Care 07/16/24 18:45 Completed COVID-19 Screening Questionnaire NOW Care 07/16/24 20:36 Active Decision to Admit X1 Care 07/16/24 20:36 Active EKG (ED ONLY) *Do not use* NOW Care 07/16/24 16:22 Completed Orthostatic Vitals NOW Care 07/16/24 16:22 Active Saline [Insert IV] NOW Care 07/16/24 18:[address] head/brain wo con Stat Exams 07/16/24 16:22 Completed EKG (ED Only) Stat Exams 07/16/24 16:22 Draft CBC Stat Lab 07/16/24 16:38 Completed Comprehensive Metabolic Panel Stat Lab 07/16/24 16:38 Completed Magnesium Stat Lab 07/16/24 16:38 Completed Troponin I Stat Lab 07/16/24 16:38 Completed Urinalysis Stat Lab 07/16/24 16:22 Ordered Urine Culture Stat Lab 07/16/24 16:22 Ordered Meclizine HCl [Antivert] Med 07/16/24 16:22 Discontinued 25 mg PO X1 ONE Ondansetron Inj [Zofran Inj] Med 07/16/24 18:44 Discontinued 4 mg IV X1 ONE Ondansetron Odt [Zofran Odt] Med 07/16/24 16:22 Discontinued 4 mg PO X1 ONE Sodium Chloride 0.9% 1000 ml [Ns] 1,000 ml Med 07/16/24 18:44 Discontinued IV 999 mls/hr Vital Signs Vital signs: Vital Signs Temperature 98.2 F 07/16/24 16:16 Pulse Rate 116 H 07/16/24 16:16 Respiratory Rate 18 07/16/24 16:16 Blood Pressure 129/86 H 07/16/24 16:16 Pulse Oximetry (%) 99 07/16/24 16:16 Oxygen Delivery Method Room Air 07/16/24 16:16 Syncope MDM Narrative MDM Narrative:: Scribe Attestation: 07/16/24 - I, Nayla Chowdhury am scribing for and in the presence of Dr. Pastrana. Patient data External records reviewed:: [facility] previous records (Per chart review, patient was admitted here on 06/14/24 for FATIMAH.) Clinical information provided by:: patient Social determinants that could affect healthcare access:: none Patient has the following chronic illnesses:: HTN, DM How is presenting disease/condition affected by chronic disease/condition?: uneffected by Evaluation data The following diagnostics were reviewed and interpreted by me:: lab results, radiology exam(s) and EKG tracing(s) Lab and/or radiology exams considered but not ordered:: none Interpretation Summary: FATIMAH and dehydration and syncope Medications / Prescriptions Medications or Prescriptions considered but not ordered:: none Medication administrations:: Medication Administration History Discontinued Medications Sodium Chloride (Ns) 1,000 mls @ 999 mls/hr IV .Q1H1M ONE Stop: 07/16/24 19:44 Last Admin: 07/16/24 19:20 Dose: 999 mls/hr Documented By: FAIZA Meclizine HCl (Meclizine Hcl 25 Mg Tablet) 25 mg PO X1 ONE Stop: 07/16/24 16:23 Last Admin: 07/16/24 16:41 Dose: 25 mg Documented By: ELVIE Ondansetron HCl (Ondansetron Odt 4 Mg Tabrap) 4 mg PO X1 ONE; Protocol Stop: 07/16/24 16:23 Last Admin: 07/16/24 16:41 Dose: 4 mg Documented By: ELVIE Ondansetron HCl (Ondansetron Inj 2 Mg/Ml Inj 2 Ml) 4 mg IV X1 ONE; Protocol Stop: 07/16/24 18:45 Last Admin: 07/16/24 19:19 Dose: 4 mg Documented By: BRENNEN Mitchell Consultations Consultation(s) initiated? (list below): Yes Consultation #1 (Physician, Specialty, Details): Discussed case with [Dr. Hall] from [nephrology] regarding [consultation]. Discussed patients ED course, exam findings, labs, and radiology results. Agrees to consult. Time: 20:34 Diagnosis Syncope Differential Diagnosis: syncope due to orthostatic hypotension, vasovagal syncope, complete atrioventricular block, subarachnoid hemorrhage and dehydration Most likely diagnosis given after review of the tests above:: FATIMAH and dehydration and syncope Admission Indicated Admission indicated?: indicated Explain why admission is indicated or not indicated:: FATIMAH and dehydration syncope Admission Request Was there a request for admission?: Yes Admission Attestation Admission request attestation: Discussed case with Hospitalist service regarding admission. Discussed patients ED course, exam findings, labs, and radiology results. The Hospitalist [agrees] to accept the patient for admission. Disposition Plan Disposition Plan: Admit Discharge Plan Plan Patient Disposition: Admit Acute Care w/in Hospital Prescriptions/Referrals Prescriptions/Med Rec: No Action atorvastatin 80 mg tablet 80 mg PO QDAY pantoprazole 40 mg tablet,delayed release (DR/EC) 40 mg PO QDAY Patient Comments: take 1 tablet by mouth once daily gabapentin 300 mg capsule 300 mg PO 3XD Patient Comments: take 1 capsule by mouth three times a day ergocalciferol (vitamin D2) 1,250 mcg (50,000 unit) capsule 1,250 mcg PO 1XD aripiprazole 10 mg tablet 10 mg PO QDAY Patient Comments: take 1 tablet by mouth once daily bupropion HCl 300 mg tablet extended release 24 hr 300 mg PO QDAY Patient Comments: take 1 tablet by mouth every morning duloxetine 60 mg capsule,delayed release(DR/EC) 60 mg PO 1XD Patient Comments: take 1 capsule by mouth once daily hydrocodone-acetaminophen 5-325 mg Tablet 1 tab PO Q6H PRN (Reason: Moderate Pain (Scale Score 5-6)) sucralfate 1 gram Tablet 1 g PO BID trazodone 150 mg tablet 150 mg PO HS Patient Comments: take 1 tablet by mouth at bedtime ferrous sulfate 325 mg (65 mg iron) tablet,delayed release (DR/EC) 325 mg PO Q OTHER DAY Qty: 30 0RF Referrals: Dot Brady FNP [Primary Care Provider] - In 1 week Problem List Clinical Impression: FATIMAH (acute kidney injury), Severe dehydration, Syncope Patient/Caregiver Discharge Instructions Print Language: Yi Stand Alone Forms: Milli Award Info., Patient Portal Info Letter
[2024-07-16] MEDS: ONDANSETRON INJ 2 MG/ML INJ 2 ML 4 MG IV (19:19)
[2024-07-16 19:20] LABS: Magnesium 2.6 mg/dL (1.6-2.6)
[2024-07-16] MEDS: SODIUM CHLORIDE 0.9% 1000 ML 1,000 ML 999 ML IV ×2 (19:20→21:25)
--- NOTE | 2024-07-16 21:09 | ESHP_ITS ---
Documentation for date of: 07/16/24 [facility] History of Present Illness History of present illness: This is a 59-year-old female PMHx of HTN, T2DM, GERD with Linx device, gastric bypass x2, gastric sleeve presenting following a syncopal episode that occurred this afternoon. States she was taking a shower and felt dizzy and passed out while getting up. Evidently she fell down and hit her head with the shower door. She was out for 2 to 3 seconds but was able to get up on her own after. Reports 2 weeks of worsening dizziness and lightheadedness concurrent with severe watery, nonbloody, diarrhea, occurring every other day, more than 5 episodes each time. Her symptoms are consistent with previous admission in which she reported watery, nonbloody, none fatty diarrhea occurring around the same frequency as they always have. She has a history of chronic diarrhea ever since she had her first gastric bypass in 2018 and a following gastric sleeve 2 years later. She also had LAGB done in 2018 for recurrent vomiting with good outcome. On previous admission, she presented with FATIMAH, she was again a previous admission she was found to have an FATIMAH which improved with being oral hydration. She had an appointment with bariatric and the GI specialist in [place] which were supposed to get done last month. However, she stated her insurance was changed and currently got approval for referral to bariatrics and GI specialty. Review of system negative for headaches, fevers, chills, abnormal weight changes, visual changes, focal neurologic deficit, chest pain, shortness of breath, cough, abdominal pain, vomiting, dysuria, hematuria or urinary urgency or frequency. No changes in her medications or diet. Had a normal colonoscopy 2 years ago and endoscopy 3 years ago. ED COURSE: Afebrile, HR 116, BP 128/86, satting 100% on room air. CMP relatively normal except for platelets of 626, baseline around 550. Sodium 132, anion gap 17, BUN 50, creatinine 2.7, GFR 19, GLUCOSE 198, calcium 10.5, ALP 191. EKG sinus tachycardia without acute ST changes. Troponin normal. Head CT negative for acute pathology. PMHx: HTN, T2DM, GERD. PSHx: Multiple GI intervention including gastric bypass, sleeve LADGb, cholecystectomy.MEDS: Meds: LISINOPRIL, METFORMIN, GABAPENTIN, ATORVASTATIN, DULOXETINE, TRAZODONE, OMEPRAZOLE, BUPROPION. ALLERGIES: HYDROCODONE, HYDROMORPHONE, MORPHINE. FHx: Second-degree relative with lupus but not first-degree relative. SH: Denies tobacco, alcohol, or drug use. Exam Vital Signs Temp Pulse Resp BP Pulse Ox O2 Del Method 97.8 F 106 H 19 121/98 H 100 Room Air 07/16/24 19:12 07/16/24 19:12 07/16/24 19:12 07/16/24 19:12 07/16/24 19:12 07/16/24 19:12 Narrative Exam GENERAL * Normal-appearing adult female, no apparent distress. HEENT * NCAT.?MAGDA. Oral mucosa is moist. Patent Nares NECK * Supple, nontender, no thyromegaly, no meningismus, no JVD, no step offs CHEST * RRR, no m/g/r * CTAB, no w/r/r. Symmetrical chest rise. No intercostal subcostal retraction * Atraumatic, nontender, no crepitus, symmetrical expansion. ABDOMEN * Soft, flat, nontender. No guarding/rebound tenderness/masses. * Bowel sounds presents EXTREMITIES * Nontender, no cyanosis, no edema * No edema/cyanosis.? SKIN * Warm and dry, no jaundice/rashes. NEUROMUSCULAR * No lumbar or midline, no CVA, no paraspinal muscle spasm or tenderness. * Moves all 4 extremities well, with full ROM and good CSM. * RASHEED x4, CN II-XII grossly intact. * No focal neurologic deficits. PSYCHIATRY * Normal mood and affect, cooperative, no SI or HI or hallucinations. Results: Labs 07/16/24 16:38 07/16/24 16:38 Labs: Short CBC 07/16/24 Range/Units 16:38 WBC 9.6 (3.6-11.0) Thou/mm3 Hgb 12.6 (12.0-16.0) g/dL Hct 38.6 (36.0-46.0) % Plt Count 626 H D (140-440) Thou/mm3 BMP 07/16/24 16:38 Sodium 132 L Potassium 3.8 Chloride 97 L Carbon Dioxide 18.3 L BUN 58 H Creatinine 2.7 H Glucose 198 H Calcium 10.5 Cardiac Enzymes 07/16/24 Range/Units 16:38 Troponin I < 0.020 (0.0-0.045) ng/mL Liver Function 07/16/24 Range/Units 16:38 Total Bilirubin 0.6 (0.3-1.2) mg/dL AST 31 (0-34) U/L ALT 27 (10-49) U/L Alkaline Phosphatase 191 H (46-116) U/L Albumin 5.6 H (3.4-4.8) gm/dL Quality Measures Quality Measures none Medications Home Medications and Allergies Home Medications ?Medication ?Instructions ?Recorded ?Confirmed ?Type aripiprazole 10 mg tablet 10 mg PO QDAY 04/13/2406/14 History atorvastatin 80 mg tablet 80 mg PO QDAY 04/13/2406/14 History bupropion HCl 300 mg 24 hr tablet, 300 mg PO QDAY 04/0306/14/24 History extended release duloxetine 60 mg capsule,delayed 60 mg PO 1XD 04/13/24 06/14/24 History release ergocalciferol (vitamin D2) 1,250 1,250 mcg PO 1XD 04/2606/14/24 History mcg (50,000 unit) capsule gabapentin 300 mg capsule 300 mg PO 3XD 04/13/2406/14 History pantoprazole 40 mg tablet,delayed 40 mg PO QDAY 06/14/24 History release hydrocodone 5 mg-acetaminophen 325 1 tab PO Q6H PRN Mo derate Pain 06/14/24 06/14/24 History mg tablet (Scale Score 5-6) sucralfate 1 gram tablet 1 g PO BID 06/14/24 06/14/24 History trazodone 150 mg tablet 150 mg PO HS 06/14/24 History Allergies Allergy/AdvReac Type Severity Reaction Status Date / Time hydrocodone Allergy Severe Anxiety Verified 07/16/24 15:56 hydromorphone (From Dilaudid) Allergy Severe Hives Verified 07/16/24 15:56 morphine Allergy Severe ITCHINESS Verified 07/16/24 15:56 Visit Medications Discontinued Medications Sodium Chloride (Ns) 1,000 mls @ 999 mls/hr IV .Q1H1M ONE Stop: 07/16/24 19:44 Last Admin: 07/16/24 19:20 Dose: 999 mls/hr Meclizine HCl (Meclizine Hcl 25 Mg Tablet) 25 mg PO X1 ONE Stop: 07/16/24 16:23 Last Admin: 07/16/24 16:41 Dose: 25 mg Ondansetron HCl (Ondansetron Odt 4 Mg Tabrap) 4 mg PO X1 ONE; Protocol Stop: 07/16/24 16:23 Last Admin: 07/16/24 16:41 Dose: 4 mg Ondansetron HCl (Ondansetron Inj 2 Mg/Ml Inj 2 Ml) 4 mg IV X1 ONE; Protocol Stop: 07/16/24 18:45 Last Admin: 07/16/24 19:19 Dose: 4 mg Assessment & Plan Plan In Summary: 59-year-old female with PMHx of HTN, T2DM, GERD with Linx device, gastric bypass x2, gastric sleeve presenting following a syncopal episode in settings of severe diarrhea. Admitted for FATIMAH. Prescient recommendations from GI. Syncope Presentation most consistent with vasovagal in settings of volume depletion/diarrhea. She has history of chronic, severe diarrhea as described below. Passed out while getting up in the shower, fell and hit her head with a shower door. Reports 2 weeks of worsening lightheadedness and dizziness when getting up from the seated position. CT head was negative, denies chest pain/palpitations, EKG sinus tachycardia without acute ST changes, electrolytes relatively normal. ? Continue hydration as below ? Physical therapy ? Pending Orthostatics Prerenal FATIMAH Anion gap metabolic acidosis Mild hyponatremia CR 2.7, BUN 58, GFR 19, AG 17, bicarb 18.3. Sodium 132. Baseline within normal limit. Most likely in settings of severe diarrhea. Anion gap metabolic acidosis as expected in settings of GI loss. Previously admitted for the same reason, responded well to fluid. Anticipate a similar course this time around. ? Renally dose meds, avoid overdiuresis and NEPHROTOXINS ? Daily CMP ? ED gave 1 L NS, will give another liter bolus, total of 2L ? Continue maintenance NS at 125 cc/H ED had informed Dr. Hall about FATIMAH. Consider consult if needed. Intractable diarrhea Possible Dumping Syndrome GERD S/p gastric bypass and gastric sleeve 2 weeks of intractable diarrhea leading to dizziness/lightheadedness and syncope. Reports watery, nonbloody diarrhea, every other day, greater than 5 episodes each. Has chronic diarrhea following gastric bypass x2, gastric sleeve, and LINX device. S/p cholecystectomy 2001. Most likely dumping syndrome. Unlikely infectious, no fever, no foul-smelling stool. Seen last month with similar symptoms, was unable to see GI/bariatric after insurance was changed. Normal colonoscopy 2 years ago and EGD 3 years ago. ? Continue fluids as above ? Continue ONDANSETRON PRN ? Will need full workup including stool culture, C. difficile, calprotectin, IBS/IBD, but will wait for GI recommendations. ? Consider starting ACARBOSE HTN HLD Previously prescribed LISINOPRIL. Currently not taking. Currently normotensive. ? Resumed home ATORVASTATIN 80 mg daily ? Start ANTIHYPERTENSIVE as indicated. T2DM GLUCOSE 198. A1c 6.2 from 04/2024. METFORMIN/MOUNJARO discontinued on last discharge, currently not taking. ? INSULIN sliding scale ? Accu-Cheks Anxiety and depression Chronic pain ? Continue home DULOXETINE 60 mg daily ? Continue home ARIPRAZOLE 10 mg daily ? Continue home BUPROPION 300 mg daily ? Continue home GABAPENTIN 300 mg TID ? HOLDING home TRAZODONE 150 mg daily HS in settings of dizziness Health maintenance Diet: Renal, CHO consistent GI prophylaxis: PROTONIX DVT prophylaxis: HEPARIN Antibiotics: Not indicated CODE STATUS: Full code Disposition: Treating FATIMAH, pending GI workup. Patient case was discussed with attending, Delon Donahue MD. Mounika Evans DO PGYI Attending Provider Attestation/Addendum 59-year-old lady with GERD, gastric bypass surgery, hypertension, diabetes mellitus, hyperlipidemia was admitted following a syncopal episode. She has been having on and off diarrhea and vomiting. She had abdominal pain earlier. The patient's last urine output was this afternoon. She has low urine output in the ER. Her creatinine is 2.7. She will be admitted for acute kidney injury, syncopal episode possibly related to volume depletion. Currently the patient is alert and oriented. She denies chest pain. She has no palpitations. She is poorly nourished.
[2024-07-16] MEDS: SODIUM CHLORIDE 0.9% 1000 ML 1,000 ML 125 ML IV (22:45)
--- NOTE | 2024-07-16 22:58 | PD.IMCONS ---
HPI Data of Consult Requesting Physician: Delon Donahue MD Primary Care Provider: DIONNE Perea Consult Narrative Reason for consult: Diarrhea pain abdomen History of present illness: 59 years old female I been asked by the internal medicine team to evaluate the patient as she came into the emergency room with syncopal episode And has acute kidney injury with a BUN/creatinine of 58 and 2.7 on 06/16/2024 she had a BUN of 19 and creatinine of 0.7 so diarrhea is quite extensive she does have 2 gastric bariatric procedures and the last one was a sleeve gastrectomy The diarrhea is nonbloody patient is also postcholecystectomy Patient has history of diabetes mellitus type 2 essential hypertension GERD with Linx and gastric bariatric procedure cc:: cc: Delon Donahue MD Review of Systems Review of Systems Systems Reviewed: All systems reviewed, normal except as documented Meds Home Medications and Allergies Home Medications ?Medication ?Instructions ?Recorded ?Confirmed ?Type aripiprazole 10 mg tablet 10 mg PO QDAY 04/13/24 06/14/24 History atorvastatin 80 mg tablet 80 mg PO QDAY 04/13/24 06/14/24 History bupropion HCl 300 mg 24 hr tablet, 300 mg PO QDAY 04/13/24 06/14/24 History extended release duloxetine 60 mg capsule,delayed 60 mg PO 1XD 04/13/24 06/14/24 History release ergocalciferol (vitamin D2) 1,250 1,250 mcg PO 1XD 04/13/24 06/14/24 History mcg (50,000 unit) capsule gabapentin 300 mg capsule 300 mg PO 3XD 04/13/24 06/14/24 History pantoprazole 40 mg tablet,delayed 40 mg PO QDAY 04/13/24 06/14/24 History release hydrocodone 5 mg-acetaminophen 325 1 tab PO Q6H PRN Moderate Pain 06/14/24 06/14/24 History mg tablet (Scale Score 5-6) sucralfate 1 gram tablet 1 g PO BID 06/14/24 06/14/24 History trazodone 150 mg tablet 150 mg PO HS 06/14/24 06/14/24 History Allergies Allergy/AdvReac Type Severity Reaction Status Date / Time hydrocodone Allergy Severe Anxiety Verified 07/16/24 15:56 hydromorphone (From Dilaudid) Allergy Severe Hives Verified 07/16/24 15:56 morphine Allergy Severe ITCHINESS Verified 07/16/24 15:56 Exam Vital Signs Temp Pulse Resp BP Pulse Ox O2 Del Method 98 F 85 18 103/79 100 Room Air 07/16/24 21:37 07/16/24 21:37 07/16/24 21:37 07/16/24 21:37 07/16/24 21:37 07/16/24 21:37 Constitutional Comments: Chronically ill-appearing Routine Respiratory Exam Comments: Normal to auscultation Routine Abdominal Exam Comments: Soft nontender Results Labs 07/16/24 16:38 07/16/24 16:38 Labs: Short CBC 07/16/24 Range/Units 16:38 WBC 9.6 (3.6-11.0) Thou/mm3 Hgb 12.6 (12.0-16.0) g/dL Hct 38.6 (36.0-46.0) % Plt Count 626 H D (140-440) Thou/mm3 BMP 07/16/24 16:38 Sodium 132 L Potassium 3.8 Chloride 97 L Carbon Dioxide 18.3 L BUN 58 H Creatinine 2.7 H Glucose 198 H Calcium 10.5 Cardiac Enzymes 07/16/24 Range/Units 16:38 Troponin I < 0.020 (0.0-0.045) ng/mL Liver Function 07/16/24 Range/Units 16:38 Total Bilirubin 0.6 (0.3-1.2) mg/dL AST 31 (0-34) U/L ALT 27 (10-49) U/L Alkaline Phosphatase 191 H (46-116) U/L Albumin 5.6 H (3.4-4.8) gm/dL Assessment and Plan Additional Assessment & Plan Additional Plan: # Chronic persistent diarrhea etiology uncertain Plan complete stool panel if negative will consider doing a fiberoptic colonoscopy prior to discharge ANCA antibody CRP Stool for C. difficile Stool culture and sensitivity Gram stain Thank you very much for the opportunity to participate in the care of this patient Other medical problems include Essential hypertension Diabetes mellitus type 2 Status post gastric bypass surgery x 2 GERD with Linx
[2024-07-17] VITALS (33 sets, daily range): BP systolic 121–182; BP diastolic 80–131; PULSE 78–113; RESP 10–20; TEMP 36.2–36.9; O2SAT 93–100; BMI 25.7
[2024-07-17 00:25] LABS: C-Reactive Protein < 0.4 mg/dL (0.0-0.9)
[2024-07-17 00:57] LABS: Sed Rate (ESR) 111 mm/hr (0-30)
[2024-07-17 02:07] LABS: Collection Type, Urine Clean Catch
[2024-07-17 02:18] LABS: Bilirubin,Urine Negative (Negative); Blood,Urine Negative (Negative); Clarity,Urine Turbid (Clear/Hazy); Color,Urine Yellow (Lt Yel-Yel); Glucose, Urine Negative (Negative); Hyaline Casts,Urine 1 /hpf (0-1); Ketones,Urine Negative (Negative); Leukocyte Esterase,Urine Positive (Negative); Nitrite,Urine Negative (Negative); Protein,Urine Trace (Neg - Trace); RBC,Urine 16 /hpf (0-3); Specific Gravity,Urine 1.021 (1.001-1.035); Squamous Epithelial Cell,Urine 4 /hpf (0-5); Urobilinogen,Urine Negative mg/dL (0.0-1.0); WBC,Urine 71 /hpf (0-5)
[2024-07-17] MEDS: ONDANSETRON INJ 2 MG/ML INJ 2 ML 4 MG IV ×2 (03:04→07:46)
--- NOTE | 2024-07-17 03:55 | PC.NURSE ---
Pt failed PO challenge, Pt had requested water after nausea symptoms had subsided. Nausea symptoms returned shortly after nausea meds needed to be given.
[2024-07-17 05:21] LABS: Basophils % (Auto) 0 % (0-2.5); Eosinophils % (Auto) 0 % (0-10); Hematocrit 29.6 % (36.0-46.0); Hemoglobin 9.5 g/dL (12.0-16.0); Immature Granulocytes % (Auto) 0 % (0-0); Immature Granulocytes Auto 0.03 Thou/mm3 (0.00-0.00); Lymphocytes # (Auto) 0.9 Thou/mm3 (1.0-4.8); Lymphocytes % (Auto) 12 % (10-50); Mean Corpuscular HGB Conc 32.1 g/dl (31.0-37.0); Mean Corpuscular Hemoglobin 23.3 pg (25.0-35.0); Mean Corpuscular Volume 73 fL (80-100); Monocytes # (Auto) 0.6 Thou/mm3 (0.0-0.8); Monocytes % (Auto) 8 % (0-12); Neutrophils # (Auto) 6.1 Thou/mm3 (1.8-7.7); Neutrophils % (Auto) 79 % (37-80); Nucleated Red Blood Cell % 0 /100 WBC (0); Platelet Count 449 Thou/mm3 (140-440); RDW Standard Deviation 42.3 fL (36.4-46.3); Red Blood Count 4.08 Miln/mm3 (4.00-5.20); White Blood Count 7.7 Thou/mm3 (3.6-11.0)
[2024-07-17 05:35] LABS: Alanine Aminotransferase 17 U/L (10-49); Albumin, Serum 4.2 gm/dL (3.4-4.8); Albumin/Globulin Ratio 1.6 (1.2-2.2); Alkaline Phosphatase 143 U/L (46-116); Anion Gap 9 (7-16); Aspartate Amino Transferase 21 U/L (0-34); BUN/Creatinine Ratio 28 Ratio (12-20); Bilirubin,Total 0.7 mg/dL (0.3-1.2); Blood Urea Nitrogen 42 mg/dL (9-23); Carbon Dioxide 20.9 mMol/L (20.0-31.0); Chloride 107 mMol/L (98-107); Creatinine (Component) 1.5 mg/dL (0.6-1.3); Estimated Creatinine Clearance 35.9 mL/min (>60); Globulin 2.7 gm/dL (2.3-3.5); Glucose 160 mg/dL (74-106); Magnesium 2.2 mg/dL (1.6-2.6); Osmolality,Calculated 287 (275-295); Phosphorous 2.8 mg/dL (2.4-5.1); Potassium 3.5 mMol/L (3.4-5.1); Sodium 137 mMol/L (136-145); Total Protein 6.9 gm/dL (5.7-8.2); eGFR 39 See Note
--- NOTE | 2024-07-17 09:47 | ECHO_ITS ---
Transthoracic Echo Report Ht (in): 63 Wt (lb): 145 Exam Location: Echo Lab Status: Inpatient Correctional Supervisor: JERRY Anderson Indications: Procedure Performed: BP: 129 / 74 HR: Technical Quality: Fair MEASUREMENTS (Male / Female) Normal Values 2D ECHO LV Diastolic Diameter PLAX 4.2 cm 4.2 - 5.9 / 3.9 - 5.3 cm LV Systolic Diameter PLAX 2.7 cm IVS Diastolic Thickness 0.8 cm 0.6 - 1.0 / 0.6 - 0.9 cm LVPW Diastolic Thickness 0.7 cm 0.6 - 1.0 / 0.6 - 0.9 cm LV Relative Wall Thickness 0.4 LVOT Diameter 1.7 cm Aortic Root Diameter 2.5 cm LA Systolic Diameter LX 2.8 cm 3.0 - 4.0 / 2.7 - 3.8 cm LV Ejection Fraction MOD BP 69.9 % >= 55 % LV Ejection Fraction MOD 4C 70.0 % LV Ejection Fraction 4C AL 70.6 % LV Ejection Fraction MOD 2C 71.0 % LV Ejection Fraction 2C AL 72.0 % LA Volume Index 15.3 cm?/m? 16 - 28 cm?/m? Ascending Aorta Diameter 3.4 cm DOPPLER AV Peak Velocity 149.7 cm/s AV Peak Gradient 9.0 mmHg AV Mean Gradient 4.0 mmHg AV Velocity Time Integral 22.2 cm LVOT Peak Velocity 113.0 cm/s LVOT Peak Gradient 5.1 mmHg LVOT Velocity Time Integral 29.5 cm AV Area Cont Eq vti 3.0 cm? AV Area Cont Eq pk 1.7 cm? MV Area PHT 2.7 cm? Mitral E Point Velocity 70.1 cm/s Mitral A Point Velocity 66.6 cm/s Mitral E to A Ratio 1.1 LV E' Lateral Velocity 8.8 cm/s Mitral E to LV E' Lateral Ratio 7.9 LV E' Septal Velocity 7.7 cm/s Mitral E to LV E' Septal Ratio 9.1 TR Peak Velocity 252.0 cm/s TR Peak Gradient 25.4 mmHg PV Peak Velocity 98.5 cm/s PV Peak Gradient 3.9 mmHg RVOT Peak Velocity 65.0 cm/s FINDINGS Left Ventricle Normal left ventricular size, wall thickness, systolic function with no obvious regional wall motion abnormalities. There is grade II diastolic dysfunction of the left ventricle (pseudonormal filling pattern). The ejection fraction is visually estimated at 60-65 %. Right Ventricle The right ventricle is normal in size and systolic function. The estimated right ventricular systolic pressure, 30 mmHg. Left Atrium The left atrium is normal by two-dimensional, color flow and Doppler imaging with no structural abnormalities, no thrombus formation present. Right Atrium The right atrium is normal by two-dimensional imaging, color flow and Doppler imaging with no structural abnormalities, no thrombus formation present. Atrial Septum The interatrial septum appears normal with no evidence of a shunt. Aorta The aorta is normal by two-dimensional, color flow and Doppler interrogation. Mitral Valve Mild mitral regurgitation. Mild thickening of the mitral valve leaflets. Mitral annular calcification. Aortic Valve Mild thickening of the aortic valve leaflets. Diffuse calcification of the aortic valve. Tricuspid Valve There is mild tricuspid valve regurgitation. Pulmonic Valve Trivial pulmonic valve regurgitation. Vessels The pulmonary artery appears normal. The inferior vena cava pulmonary and hepatic veins appear normal. Pericardium The pericardium is normal by two-dimensional imaging. There is no significant pericardial effusion. CONCLUSIONS Indication: syncope LV appears normal with EF of 60-65%. Grade II Diastolic Dysfunction RV appears normal with estimated RVSP of 20 mmHg Trace mitral and trace tricuspid regurgitation Aortic valve sclerosis no stenosis Claire Ruiz (Electronically Signed) Final Date: 17 July 2024 15:00
--- NOTE | 2024-07-17 10:30 | PC.NURSE ---
ASSUMED CARE OF PATIENT AT THIS TIME.
[2024-07-17] MEDS: PANTOPRAZOLE INJ 40 MG VIAL IVP (11:09)
[2024-07-17] MEDS: BuPROPion HCL XL 150 MG TABCR 300 MG PO (11:18)
[2024-07-17] MEDS: ARIPiprazole 5 MG TABLET 10 MG PO (11:48)
[2024-07-17] MEDS: DULoxetine HCL 30 MG CAPSULE 60 MG PO (11:48)
[2024-07-17] MEDS: HEPARIN SOD INJ 5000 UNIT/ML VIAL SC ×2 (15:31→21:26)
[2024-07-17] MEDS: GABAPENTIN 100 MG CAPSULE PO ×2 (15:32→21:25)
--- NOTE | 2024-07-17 17:56 | ESPR_ITS ---
<Statement entered by Davidson Regalado MD - 07/18/24 15:36> Senior Resident Attestation: I supervised/discussed management plan with general internist and physician leader physician Dr. Flores, and was involved in the care of this patient. I personally saw and examined the patient and discussed the assessment and plan with the entire medicine team, including my attending. I agree with the assessment and plan as documented. Patient's care was discussed with attending physician, Dr. Saenz. Davidson Regalado MD PGY-2. Documentation for date of: 07/17/24 Subjective Subjective Interval history: Pt examined at bedside today. No acute overnight events. Pt reports that she is doing well. She has been experiencing chronic symptoms of abd pain, nausea vomiting and diarrhea. She says that is she is in between seeing a new bariatric surgeon b/c of insurance change. She does not know if these symptoms come with specific types of food. No other complaints at this time. Exam Vital Signs Temp Pulse Resp BP Pulse Ox O2 Del Method 97.4 F 84 18 139/91 H 97 Room Air 07/17/24 15:50 07/17/24 15:50 07/17/24 15:50 07/17/24 15:50 07/17/24 15:50 07/17/24 15:50 Narrative Exam General: AAOx3, NAD, HEENT: Moist mucous membranes, conjunctiva clear, EOMI, PERRLA, Cardiovascular: S1, S2, radial pulses +2 bilat, RRR Pulmonary: CTAB bilat no cough, no wheezing GI: No tenderness to light or deep palpitation, no guarding, rigidity, rebound tenderness or distension Extremities: No presence of trace or pitting edema in lower extremities bilaterally, dorsalis pedis pulses +2 bilaterally Neuro: AAOx3, no focal motor or sensory deficits in the UE or LE bilat Psych: Good judgement, thought and behavior Objective Labs 07/17/24 04:45 07/17/24 04:45 Labs: Laboratory Results - last 24 hr 07/16/24 07/16/24 07/17/24 16:38 16:38 02:02 WBC RBC Hgb Hct MCV MCH MCHC RDW Std Deviation Plt Count Neut % (Auto) Lymph % (Auto) [place] % (Auto) Eos % (Auto) Baso % (Auto) Neut # (Auto) Lymph # (Auto) [place] # (Auto) Eos # (Auto) Baso # (Auto) Immature Gran # (Auto) Absolute Nucleated RBC Immature Gran % Nucleated RBC % ESR 111 H Sodium 132 L Potassium 3.8 Chloride 97 L Carbon Dioxide 18.3 L Anion Gap 17 H BUN 58 H Creatinine 2.7 H Estim Creat Clear Calc 19.9 L eGFR 19 L BUN/Creatinine Ratio 21 H Glucose 198 H Calculated Osmolality 286 Calcium 10.5 Corrected Calcium 10.5 H Phosphorus Magnesium Cancelled 2.6 Total Bilirubin 0.6 AST 31 ALT 27 Alkaline Phosphatase 191 H Troponin I < 0.020 C-Reactive Prot, Quant < 0.4 Total Protein 9.5 H Albumin 5.6 H Globulin 3.9 H Albumin/Globulin Ratio 1.4 Ur Collection Type Clean Catch Urine Color Yellow Urine Clarity Turbid A Urine pH 6.0 Ur Specific [place] 1.021 Urine Protein Trace Urine Glucose (UA) Negative Urine Ketones Negative Urine Blood Negative Urine Nitrite Negative Urine Bilirubin Negative Urine Urobilinogen (Auto) Negative Ur Leukocyte Esterase Positive Urine RBC 16 H Urine WBC 71 H Ur Squamous Epith Cells 4 Urine Bacteria None Hyaline Casts 1 07/17/24 04:45 WBC 7.7 RBC 4.08 Hgb 9.5 L D Hct 29.6 L MCV 73 L MCH 23.3 L MCHC 32.1 RDW Std Deviation 42.3 Plt Count 449 H D Neut % (Auto) 79 Lymph % (Auto) 12 [place] % (Auto) 8 Eos % (Auto) 0 Baso % (Auto) 0 Neut # (Auto) 6.1 Lymph # (Auto) 0.9 L [place] # (Auto) 0.6 Eos # (Auto) 0.0 Baso # (Auto) 0.0 Immature Gran # (Auto) 0.03 H Absolute Nucleated RBC 0.00 Immature Gran % 0 Nucleated RBC % 0 ESR Sodium 137 Potassium 3.5 Chloride 107 Carbon Dioxide 20.9 Anion Gap 9 BUN 42 H Creatinine 1.5 H D Estim Creat Clear Calc 35.9 L eGFR 39 L BUN/Creatinine Ratio 28 H Glucose 160 H Calculated Osmolality 287 Calcium 9.0 D Corrected Calcium 9.0 D Phosphorus 2.8 Magnesium 2.2 Total Bilirubin 0.7 AST 21 ALT 17 Alkaline Phosphatase 143 H D Troponin I C-Reactive Prot, Quant Total Protein 6.9 Albumin 4.2 D Globulin 2.7 Albumin/Globulin Ratio 1.6 Ur Collection Type Urine Color Urine Clarity Urine pH Ur Specific [place] Urine Protein Urine Glucose (UA) Urine Ketones Urine Blood Urine Nitrite Urine Bilirubin Urine Urobilinogen (Auto) Ur Leukocyte Esterase Urine RBC Urine WBC Ur Squamous Epith Cells Urine Bacteria Hyaline Casts Quality Measures Quality Measures none Assessment & Plan Assessment Current Active Medications: Generic Name Dose Route Start Last Admin Trade Name Freq PRN Reason Stop Dose Admin Acetaminophen 650 mg 07/16/24 21:09 Acetaminophen 325 Mg Tablet PO 08/15/24 21:08 Q6H PRN PAIN SCALE 1-3 (mild Acetaminophen 650 mg 07/16/24 21:09 Acetaminophen 325 Mg Tablet PO 08/15/24 21:08 Q6H PRN Fever >100 Aripiprazole 10 mg 07/17/24 09:00 07/17/24 11:48 Aripiprazole 5 Mg Tablet PO 08/16/24 08:59 10 mg QDAY HELENA Administration Atorvastatin Calcium 80 mg 07/17/24 21:00 Atorvastatin Calcium 20 Mg Tablet PO 08/16/24 20:59 HS HELENA Bupropion HCl 300 mg 07/17/24 09:00 07/17/24 11:18 Bupropion Hcl Xl 150 Mg Tabcr PO 08/16/24 08:59 300 mg DAILY HELENA Administration Dextrose 25 ml 07/16/24 22:31 Dextrose 50%-Water Inj 50 Ml Syringe IV 08/15/24 22:30 Q15MIN PRN BG 50-70 responsive npo pt Dextrose 50 ml 07/16/24 22:31 Dextrose 50%-Water Inj 50 Ml Syringe IV 08/15/24 22:30 Q15MIN PRN BG <50 OR BG <70 & pt unresponsive Duloxetine HCl 60 mg 07/17/24 09:00 07/17/24 11:48 Duloxetine Hcl 30 Mg Capsule PO 08/16/24 08:59 60 mg QDAY HELENA Administration Gabapentin 100 mg 07/17/24 06:00 07/17/24 15:32 Gabapentin 100 Mg Capsule PO 08/16/24 05:59 100 mg TID HELENA Administration Glucagon 1 mg 07/16/24 22:31 Glucagon Inj 1 Mg Vial IM Q15MIN PRN BG <70, and no IV access Heparin Sodium (Porcine) 5,000 unit 07/17/24 06:00 07/17/24 15:31 Heparin Sod Inj 5000 Unit/Ml Vial SC 07/31/24 05:59 5,000 unit Q8HR HELENA Administration Insulin Human Lispro 0 unit 07/17/24 07:30 07/17/24 11:04 Insulin Lispro (Admelog) 1 Unit/0.01 Ml Unit SC 08/16/24 07:29 Not Given ACHS HELENA Protocol Ondansetron HCl 4 mg 07/16/24 21:09 07/17/24 07:46 Ondansetron Inj 2 Mg/Ml Inj 2 Ml IV 08/15/24 21:08 4 mg Q6H PRN Administration NAUSEA OR VOMITING Protocol Pantoprazole Sodium 40 mg 07/17/24 09:00 07/17/24 11:09 Pantoprazole Inj 40 Mg Vial IVP 08/16/24 08:59 40 mg QDAY HELENA Administration Plan Assessment 59-year-old female with PMHx of HTN, T2DM, GERD with Linx device, gastric bypass x2, gastric sleeve presenting following a syncopal episode in settings of severe diarrhea. Admitted for FATIMAH. Syncope Presentation most consistent with vasovagal in settings of volume depletion/diarrhea. She has history of chronic, severe diarrhea as described below. Passed out while getting up in the shower, fell and hit her head with a shower door. Reports 2 weeks of worsening lightheadedness and dizziness when getting up from the seated position. CT head was negative, denies chest pain/palpitations, EKG sinus tachycardia without acute ST changes, electrolytes relatively normal. Plan: ? Continue hydration as below ? Physical therapy ? F/u orthostatics - Echo Prerenal FATIMAH, improving Anion gap metabolic acidosis Mild hyponatremia CR 2.7, BUN 58, GFR 19, AG 17, bicarb 18.3. Sodium 132. Baseline within normal limit. Most likely in settings of severe diarrhea. Anion gap metabolic acidosis as expected in settings of GI loss. Previously admitted for the same reason, responded well to fluid. Anticipate a similar course this time around Cr 1.5 now Plan: ? Renally dose meds, avoid overdiuresis and NEPHROTOXINS ? Daily CMP ? Continue maintenance NS at 125 cc/H Intractable diarrhea Possible Dumping Syndrome GERD S/p gastric bypass and gastric sleeve 2 weeks of intractable diarrhea leading to dizziness/lightheadedness and syncope. Reports watery, nonbloody diarrhea, every other day, greater than 5 episodes each. Has chronic diarrhea following gastric bypass x2, gastric sleeve, and LINX device. S/p cholecystectomy 2001. Most likely dumping syndrome. Unlikely infectious, no fever, no foul-smelling stool. Seen last month with similar symptoms, was unable to see GI/bariatric after insurance was changed. Normal colonoscopy 2 years ago and EGD 3 years ago. 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 Continue fluids as above ? Continue ONDANSETRON PRN ? Will need full workup including stool culture, C. difficile, calprotectin, IBS/IBD, but will wait for GI recommendations. ? Consider starting ACARBOSE - Follow up GI recs HTN HLD Previously prescribed LISINOPRIL. Currently not taking. Currently normotensive. ? Resumed home ATORVASTATIN 80 mg daily ? Start ANTIHYPERTENSIVE as indicated. T2DM GLUCOSE 198. A1c 6.2 from 04/2024. METFORMIN/MOUNJARO discontinued on last discharge, currently not taking. ? INSULIN sliding scale ? Accu-Cheks Anxiety and depression Chronic pain ? Continue home DULOXETINE 60 mg daily ? Continue home ARIPRAZOLE 10 mg daily ? Continue home BUPROPION 300 mg daily ? Continue home GABAPENTIN 300 mg TID ? HOLDING home TRAZODONE 150 mg daily HS in settings of dizziness #Health Maintenance Disposition: MedSurg DVT prophylaxis: Heparin GI prophylaxis:Protonix Diet: Renal, CHO consistent CODE STATUS:Full Patient seen and care discussed with my senior resident, Dr. Regalado , and my attending physician, Dr. Letty Flores, PGY-1
--- NOTE | 2024-07-17 18:00 | PC.NURSE ---
PT UNABLE TO PROVIDE HOME MED LIST, PT WILL TRY TO HAVE BROTHER BRING MEDS IN TOMORROW
--- NOTE | 2024-07-17 20:40 | ESPR_ITS ---
Documentation for date of: 07/17/24 Subjective Subjective Interval history: Patient evaluated dropping hemoglobin hematocrit due to improving BUN/creatinine no signs of any active bleeding no stool samples for C. difficile for culture and sensitivity at least on computer screening Exam Vital Signs Temp Pulse Resp BP Pulse Ox O2 Del Method 97.1 F 78 18 139/88 H 93 L Room Air 07/17/24 16:00 07/17/24 16:00 07/17/24 16:00 07/17/24 16:00 07/17/24 16:00 07/17/24 15:50 Objective Labs 07/17/24 04:45 07/17/24 04:45 Labs: Laboratory Results - last 24 hr 07/16/24 07/17/24 07/17/24 16:38 02:02 04:45 WBC 7.7 RBC 4.08 Hgb 9.5 L D Hct 29.6 L MCV 73 L MCH 23.3 L MCHC 32.1 RDW Std Deviation 42.3 Plt Count 449 H D Neut % (Auto) 79 Lymph % (Auto) 12 [place] % (Auto) 8 Eos % (Auto) 0 Baso % (Auto) 0 Neut # (Auto) 6.1 Lymph # (Auto) 0.9 L [place] # (Auto) 0.6 Eos # (Auto) 0.0 Baso # (Auto) 0.0 Immature Gran # (Auto) 0.03 H Absolute Nucleated RBC 0.00 Immature Gran % 0 Nucleated RBC % 0 ESR 111 H Sodium 137 Potassium 3.5 Chloride 107 Carbon Dioxide 20.9 Anion Gap 9 BUN 42 H Creatinine 1.5 H D Estim Creat Clear Calc 35.9 L eGFR 39 L BUN/Creatinine Ratio 28 H Glucose 160 H Calculated Osmolality 287 Calcium 9.0 D Corrected Calcium 9.0 D Phosphorus 2.8 Magnesium 2.2 Total Bilirubin 0.7 AST 21 ALT 17 Alkaline Phosphatase 143 H D C-Reactive Prot, Quant < 0.4 Total Protein 6.9 Albumin 4.2 D Globulin 2.7 Albumin/Globulin Ratio 1.6 Ur Collection Type Clean Catch Urine Color Yellow Urine Clarity Turbid A Urine pH 6.0 Ur Specific [place] 1.021 Urine Protein Trace Urine Glucose (UA) Negative Urine Ketones Negative Urine Blood Negative Urine Nitrite Negative Urine Bilirubin Negative Urine Urobilinogen (Auto) Negative Ur Leukocyte Esterase Positive Urine RBC 16 H Urine WBC 71 H Ur Squamous Epith Cells 4 Urine Bacteria None Hyaline Casts 1 Impressions Impression: Chronic persistent diarrhea await stool analysis before scheduling colonoscopy Assessment & Plan A&P Narrative # Chronic persistent diarrhea etiology uncertain Plan complete stool panel if negative will consider doing a fiberoptic colonoscopy prior to discharge ANCA antibody CRP Stool for C. difficile Stool culture and sensitivity Gram stain Thank you very much for the opportunity to participate in the care of this patient Other medical problems include Essential hypertension Diabetes mellitus type 2 Status post gastric bypass surgery x 2 GERD with Linx Time Spent With Patient Time: Total time spent is greater than 50% in coordination of care (as documented) at patient's floor/unit and/or counseling patient:
[2024-07-17] MEDS: ATORVASTATIN CALCIUM 20 MG TABLET 80 MG PO (21:25)
[2024-07-18] VITALS: BP 111/75; PULSE 82; RESP 18; TEMP 36.4; O2SAT 96
[2024-07-18 04:00] VITALS: BP 128/87; PULSE 84; RESP 18; TEMP 36.6; O2SAT 92
[2024-07-18 05:44] LABS: Basophils % (Auto) 0 % (0-2.5); Eosinophils % (Auto) 1 % (0-10); Hematocrit 27.5 % (36.0-46.0); Immature Granulocytes % (Auto) 0 % (0-0); Immature Granulocytes Auto 0.01 Thou/mm3 (0.00-0.00); Lymphocytes # (Auto) 1.7 Thou/mm3 (1.0-4.8); Lymphocytes % (Auto) 33 % (10-50); Mean Corpuscular HGB Conc 31.6 g/dl (31.0-37.0); Mean Corpuscular Hemoglobin 23.3 pg (25.0-35.0); Mean Corpuscular Volume 74 fL (80-100); Monocytes # (Auto) 0.5 Thou/mm3 (0.0-0.8); Monocytes % (Auto) 11 % (0-12); Neutrophils # (Auto) 2.8 Thou/mm3 (1.8-7.7); Neutrophils % (Auto) 55 % (37-80); Nucleated Red Blood Cell % 0 /100 WBC (0); Platelet Count 383 Thou/mm3 (140-440); RDW Standard Deviation 42.4 fL (36.4-46.3); Red Blood Count 3.73 Miln/mm3 (4.00-5.20); White Blood Count 5.1 Thou/mm3 (3.6-11.0)
[2024-07-18 06:04] LABS: Hemoglobin 8.7 g/dL (12.0-16.0)
[2024-07-18 06:42] LABS: Alanine Aminotransferase 16 U/L (10-49); Albumin, Serum 3.9 gm/dL (3.4-4.8); Albumin/Globulin Ratio 1.6 (1.2-2.2); Alkaline Phosphatase 126 U/L (46-116); Anion Gap 7 (7-16); Aspartate Amino Transferase 24 U/L (0-34); BUN/Creatinine Ratio 19 Ratio (12-20); Bilirubin,Total 0.7 mg/dL (0.3-1.2); Blood Urea Nitrogen 19 mg/dL (9-23); Calcium 9.1 mg/dL (8.3-10.6); Calcium (Corrected) 9.2 mg/dL (8.5-10.1); Carbon Dioxide 25.4 mMol/L (20.0-31.0); Chloride 103 mMol/L (98-107); Estimated Creatinine Clearance 53.9 mL/min (>60); Globulin 2.5 gm/dL (2.3-3.5); Glucose 105 mg/dL (74-106); Osmolality,Calculated 272 (275-295); Phosphorous 2.5 mg/dL (2.4-5.1); Potassium 3.6 mMol/L (3.4-5.1); Sodium 135 mMol/L (136-145); Total Protein 6.4 gm/dL (5.7-8.2); eGFR > 60 See Note
[2024-07-18] MEDS: GABAPENTIN 100 MG CAPSULE PO (07:30)
[2024-07-18] MEDS: HEPARIN SOD INJ 5000 UNIT/ML VIAL SC (07:30)
[2024-07-18 08:00] VITALS: BP 115/85; PULSE 98; RESP 16; TEMP 36.3; O2SAT 97
[2024-07-18] MEDS: DULoxetine HCL 30 MG CAPSULE 60 MG PO (10:12)
[2024-07-18] MEDS: BuPROPion HCL XL 150 MG TABCR 300 MG PO (10:12)
[2024-07-18] MEDS: PANTOPRAZOLE INJ 40 MG VIAL IVP (10:13)
[2024-07-18] MEDS: ARIPiprazole 5 MG TABLET 10 MG PO (10:13)
--- NOTE | 2024-07-18 10:14 | PC.PT ---
Attempt to initiate PT evaluation, but as per patient she is already ambulating to the restroom x I. Patient states she is ready to go home. Nurse is at bedside. Will cancel PT evaluation.
--- NOTE | 2024-07-18 12:41 | PD.RESDS ---
Planned Discharge Date 07/18/24 DS: Providers Provider Date of admission: 07/16/24 21:09 Primary care physician: DOINNE Perea Admitting Provider: Delon Donahue MD Attending Provider on Admission: Gaurav Saenz MD Consults: 07/16/24 21:34 Consult to Gastroenterology Stat Comment: Chronic diarrhea Consulting Provider: Jeaneth Floyd 07/16/24 21:42 Referral Physical Therapy Routine Comment: Physician Instructions: 07/17/24 16:52 Consult Diabetic Routine Comment: Referral Infection Control Routine Comment: Reason for Infection Control Referral: Admitted with Diarrhea Referral Registered Dietitian Routine Comment: Attending Provider on DC: Davidson Regalado MD Discharging Provider: Davidson Regalado MD DS: Diagnosis Problem List Completed Was Problem List Reviewed/Reconciled?: Yes Hospital Course Hospital Course Hospital course: This is a 59-year-old female PMHx of HTN, T2DM, GERD with Linx device, gastric bypass x2, gastric sleeve presenting following a syncopal episode that occurred this afternoon. States she was taking a shower and felt dizzy and passed out while getting up. Evidently she fell down and hit her head with the shower door. She was out for 2 to 3 seconds but was able to get up on her own after. Reported 2 weeks of worsening dizziness and lightheadedness concurrent with severe watery, nonbloody diarrhea, occurring every other day, more than 5 episodes each time. On admission vitals showed HR 116, BP 128/86. CMP relatively normal except for platelets of 626, baseline around 550. Sodium 132, anion gap 17, BUN 50, creatinine 2.7 (BL 0.9-1), GFR 19, GLUCOSE 198, calcium 10.5, ALP 191. EKG sinus tachycardia without acute ST changes. Troponin normal. Head CT negative for acute pathology. Patient was admitted for FATIMAH workup. She was started on IV fluids. Echo showed grade 2 diastolic dysfunction, ejection fraction 60 to 65%. Her creatinine has significantly improved, today at 1. Patient is asymptomatic, denies any dizziness, reports no diarrhea today. She is stable for discharge today. Follow-up with PCP and nephrology within 2 weeks. Continue home medications as prescribed. #Syncope, likely due to dehydration. #Prerenal FATIMAH, resolved. #Anion gap metabolic acidosis. #Mild hyponatremia. #Intractable diarrhea, improved. #Possible Dumping Syndrome. #GERD. #S/p gastric bypass and gastric sleeve. #HTN. #HLD. #T2DM. #Anxiety and depression. #Chronic pain. Plan of care discussed with attending Dr. Saenz. Davidson Regalado MD, PGY 2. Disclaimer: This note was dictated by speech recognition. Minor errors in historical archeologist may be present due to voice recognition software. Time Spent with Patient Time attestation: Total time spent providing and/or coordinating discharge services: Exam Vital Signs Temp Pulse Resp BP Pulse Ox O2 Del Method 97.3 F 98 16 115/85 H 97 Room Air 07/18/24 08:00 07/18/24 08:00 07/18/24 08:00 07/18/24 08:00 07/18/24 08:00 07/18/24 08:00 Narrative Exam Gen: Well-developed and well-nourished. HEENT: NCAT, PERRLA, EOMI, MMM, anicteric conjunctivae. CVS: normal S1 and S2. RRR. No M/R/G. Resp: CTA B/L. No rhonchi, rales, crackles or wheezing. Abd: soft, non-tender, non-distended. BS+ in all 4 quadrants. MSK: Good ROM in BUE & BLE. No edema or rash. Neuro: CN II-XII grossly intact. Strength 5/5 in BUE & BLE. Alert and oriented x3. Psych: appropriate mood and affect. Discharge Plan Plan Patient Disposition: HOME (Self Care) Care Plan Goals: Continue home medications as prescribed. Follow up with PCP and nephrology within 2 weeks. Follow-up with PCP lab results for diarrhea workup. Prescriptions/Referrals Prescriptions/Med Rec: Continued atorvastatin 80 mg tablet 80 mg PO QDAY pantoprazole 40 mg tablet,delayed release (DR/EC) 40 mg PO QDAY Patient Comments: take 1 tablet by mouth once daily gabapentin 300 mg capsule 300 mg PO 3XD Patient Comments: take 1 capsule by mouth three times a day ergocalciferol (vitamin D2) 1,250 mcg (50,000 unit) capsule 1,250 mcg PO 1XD aripiprazole 10 mg tablet 10 mg PO QDAY Patient Comments: take 1 tablet by mouth once daily bupropion HCl 300 mg tablet extended release 24 hr 300 mg PO QDAY Patient Comments: take 1 tablet by mouth every morning duloxetine 60 mg capsule,delayed release(DR/EC) 60 mg PO 1XD Patient Comments: take 1 capsule by mouth once daily hydrocodone-acetaminophen 5-325 mg Tablet 1 tab PO Q6H PRN (Reason: Moderate Pain (Scale Score 5-6)) sucralfate 1 gram Tablet 1 g PO BID trazodone 150 mg tablet 150 mg PO HS Patient Comments: take 1 tablet by mouth at bedtime ferrous sulfate 325 mg (65 mg iron) tablet,delayed release (DR/EC) 325 mg PO Q OTHER DAY Qty: 30 0RF Referrals: Dot Brady FNP [Primary Care Provider] - Patient/Caregiver Discharge Instructions Education Materials: Kidney Failure Self Care, Iron Supplements Print Language: [place] Stand Alone Forms: [employer] Info., Patient Portal Info Letter Discharge Order Discharge Orders: Discharge (Routine); Ordered 07/18/24 Ordered By: Davidson Regalado Quality Discharge Quality Measures VTE prophylaxis
[2024-07-18 13:52] LABS: Stool for WBCs Negative (Negative)
--- NOTE | 2024-07-18 19:34 | ESPR_ITS ---
Documentation for date of: 07/18/24 Subjective Subjective Interval history: Late entry for the note No diarrhea at all Case discussed with internal medicine team Okay to discharge patient home If the diarrhea returns she can make a follow-up appointment at that point we will do a Exam Vital Signs Temp Pulse Resp BP Pulse Ox O2 Del Method 97.3 F 98 16 115/85 H 97 Room Air 07/18/24 08:00 07/18/24 08:00 07/18/24 08:00 07/18/24 08:00 07/18/24 08:00 07/18/24 08:00 Objective Labs 07/18/24 05:14 07/18/24 05:14 Labs: Laboratory Results - last 24 hr 07/18/24 07/18/24 03:55 05:14 WBC 5.1 RBC 3.73 L Hgb 8.7 L Hct 27.5 L MCV 74 L MCH 23.3 L MCHC 31.6 RDW Std Deviation 42.4 Plt Count 383 D Neut % (Auto) 55 Lymph % (Auto) 33 [place] % (Auto) 11 Eos % (Auto) 1 Baso % (Auto) 0 Neut # (Auto) 2.8 Lymph # (Auto) 1.7 [place] # (Auto) 0.5 Eos # (Auto) 0.0 Baso # (Auto) 0.0 Immature Gran # (Auto) 0.01 H Absolute Nucleated RBC 0.00 Immature Gran % 0 Nucleated RBC % 0 Sodium 135 L Potassium 3.6 Chloride 103 Carbon Dioxide 25.4 Anion Gap 7 BUN 19 Creatinine 1.0 D Estim Creat Clear Calc 53.9 L eGFR > 60 BUN/Creatinine Ratio 19 Glucose 105 D Calculated Osmolality 272 L Calcium 9.1 Corrected Calcium 9.2 Phosphorus 2.5 Magnesium 2.0 Total Bilirubin 0.7 AST 24 ALT 16 Alkaline Phosphatase 126 H Total Protein 6.4 Albumin 3.9 Globulin 2.5 Albumin/Globulin Ratio 1.6 Stool for White Cells Negative Stl C. diff Tox B Gene Cancelled Impressions Impression: # Diarrhea resolved no need for a colonoscopy okay to discharge patient home Assessment & Plan A&P Narrative # Chronic persistent diarrhea etiology uncertain Plan complete stool panel if negative will consider doing a fiberoptic colonoscopy prior to discharge ANCA antibody CRP Stool for C. difficile Stool culture and sensitivity Gram stain Thank you very much for the opportunity to participate in the care of this patient Other medical problems include Essential hypertension Diabetes mellitus type 2 Status post gastric bypass surgery x 2 GERD with Linx Time Spent With Patient Time: Total time spent is greater than 50% in coordination of care (as documented) at patient's floor/unit and/or counseling patient:
--- NOTE | 2024-07-19 18:18 | PC.SS ---
Late entry: Ally Christopher is 59 year old female admitted to [facility] for FATIMAH. SS conducted bedside contact with the patient to complete initial assessment and to discuss discharge planning.? SW used all precautionary measures to complete initial. Role and reason for the contact was explained to Ally. Pt is alert and oriented times 4. ? Patient confirmed demographic information address correct on facesheet. . Patient identifies sister Kidd, as her surrogate decision maker. Pt states prior to hospitalization she is able to complete ADL?s independently does not need DME nor O2. Pt confirmed no history of mental health or substance abuse. Pts PCP is Dot Brady. Pharmacy of choice is unknown. Discharge options discussed and the pt will return home. Family will provide transportation upon DC. No further intervention required at this time, social work job titles would be available to address any further concerns. DC Plan: Home Contact: sister Kidd, Address: Confirmed on face sheet PCP: Dot Brady
--- NOTE | 2024-07-20 17:34 | PC.SS ---
Late entry: SS spoke with Jeanine, registration to casino change attendant to notify to Edward
== END 2024-07-18 12:22 | disposition home or self-care (01) | DRG 469 ==
LOC: SERX 20:36 → SERHOLD 21:36 → S3NX 07-17 15:10
PROVIDERS: Nurse Practitioner Family; Specialist; Admitting Provider Internal Medicine; Emergency Provider Emergency Medicine; PCP Nurse Practitioner Family; Visit Provider Internal Medicine
DX: N17.9 Acute kidney failure, unspecified (principal); I10 Essential (primary) hypertension; E11.9 Type 2 diabetes mellitus without complications; K21.9 Gastro-esophageal reflux disease without esophagitis; R55 Syncope and collapse; E87.1 Hypo-osmolality and hyponatremia; E87.20 Acidosis, unspecified; F32.A Depression, unspecified; F41.9 Anxiety disorder, unspecified; R11.2 Nausea with vomiting, unspecified; G89.29 Other chronic pain; K91.1 Postgastric surgery syndromes; K52.9 Noninfective gastroenteritis and colitis, unspecified; E78.5 Hyperlipidemia, unspecified; E86.0 Dehydration; Z98.84 Bariatric surgery status; Z90.49 Acquired absence of other specified parts of digestive tract; W01.198A Fall on same level from slipping, tripping and stumbling with subsequent striking against other object, initial encounter; Y92.002 Bathroom of unspecified non-institutional (private) residence as the place of occurrence of the external cause; Z88.5 Allergy status to narcotic agent; Z79.899 Other long term (current) drug therapy
CPT/HCPCS: 36415; 70450; 80053; 81001; 83735; 84100; 84484; 85025; 85652; 86021; 86036; 86140; 87015; 87045; 87046; 87081; 87086; 87186; 87205; 87329; 87400; 87493; 87811; 87899; 93005; 93306; 96361; 96374; 96376; 99285; J1643; J2405; J2470; J7030; Q0162; A9270

== ENCOUNTER 2024-11-10 09:34 | Emergency (ER) | payer MEDICAID, SELFPAY ==
[2024-11-10 09:35] VITALS: BMI 24.7
[2024-11-10 09:50] VITALS: BP 130/89; PULSE 107; RESP 18; TEMP 36.8; O2SAT 98
--- NOTE | 2024-11-10 09:55 | XR_ITS ---
Examination: CT abdomen and pelvis without contrast. Coronal 3-D reconstructions. Sagittal 2-D reconstructions. Date and time of exam:November 06, 2024 at 1101 hours INDICATIONS: Lower abdominal pain nausea vomiting diarrhea beginning 3 days ago, history kidney stones on CT abdomen pelvis April 17, 2024 CTDI: vol (mGy): 7.6 DLP: (mGycm): 404 Technique: Axial images of the abdomen have been obtained, 3 mm slice thickness Intravenous contrast material has not been administered. Low dose protocols were performed. One or more of the following dose reduction techniques were used; automated exposure control, adjustment of the mA and/or KV according to patient size, use of iterative reconstruction technique. Findings: No focal liver or splenic lesions Absent gallbladder No pancreatic mass. 14 mm fat-containing right adrenal adenoma Small bilateral renal cysts Moderate renal parenchymal scar formation 1 mm midpole nonobstructing left renal calculus coronal image 78 Aorta normal size Normal appendix No bowel obstruction Colonic diverticulosis Atrophic uterus Contracted urinary bladder Chronic osteoporotic compression L3 IMPRESSION: 1 mm midpole nonobstructing left renal calculus, no hydronephrosis or ureteral calculi Moderate renal parenchymal scar formation Normal appendix
--- NOTE | 2024-11-10 09:56 | PD.EDABDPN ---
ED Abdominal Pain RME/HPI General Chief Complaint: Abdominal Pain Stated complaint: ABD PAIN FOR 2 DAYS Time seen by provider: 11/10/24 09:43 Arrival date/time: 11/10/24 09:34 59-year-old female with a history of hyperlipidemia presents to the emergency room with a chief complaint of diffuse 7 out of 10 abdominal pain, vomiting, diarrhea x 2 days. Source: patient Mode of arrival: ambulatory Limitations: no limitations Related Data Home Medications ?Medication ?Instructions ?Recorded ?Confirmed aripiprazole 10 mg tablet 10 mg PO QDAY 04/13/24 06/14/24 atorvastatin 80 mg tablet 80 mg PO QDAY 04/13/24 06/14/24 bupropion HCl 300 mg 24 hr tablet, 300 mg PO QDAY 04/13/24 06/14/24 extended release duloxetine 60 mg capsule,delayed 60 mg PO 1XD 04/13/24 06/14/24 release ergocalciferol (vitamin D2) 1,250 1,250 mcg PO 1XD 04/13/24 06/14/24 mcg (50,000 unit) capsule gabapentin 300 mg capsule 300 mg PO 3XD 04/13/24 06/14/24 pantoprazole 40 mg tablet,delayed 40 mg PO QDAY 04/13/24 06/14/24 release hydrocodone 5 mg-acetaminophen 325 1 tab PO Q6H PRN Moderate Pain 06/14/24 06/14/24 mg tablet (Scale Score 5-6) sucralfate 1 gram tablet 1 g PO BID 06/14/24 06/14/24 trazodone 150 mg tablet 150 mg PO HS 06/14/24 06/14/24 Previous Rx's ?Medication ?Instructions ?Recorded ferrous sulfate 325 mg (65 mg 325 mg PO Q OTHER DAY #30 tabs 06/16/24 iron) tablet,delayed release Allergies Allergy/AdvReac Type Severity Reaction Status Date / Time hydrocodone Allergy Severe Anxiety Verified 11/10/24 09:37 hydromorphone (From Dilaudid) Allergy Severe Hives Verified 11/10/24 09:37 morphine Allergy Severe ITCHINESS Verified 11/10/24 09:37 Review of Systems Review of Systems Systems Reviewed: All systems reviewed, normal except as documented Constitutional Constitutional: Reports system reviewed and no additional complaints, except as documented, Denies fatigue, Denies fever(s), Denies headache(s) and Denies weakness Eyes Eyes: Reports system reviewed and no additional complaints, except as documented, Denies blurry vision and Denies change in vision ENT Ears, Nose, Mouth, and Throat: Reports system reviewed and no additional complaints, except as documented, Denies otalgia, Denies headache(s), Denies nasal congestion, Denies throat swelling and Denies vertigo Cardiovascular Cardiovascular: Reports system reviewed and no additional complaints, except as documented, Denies chest pain, Denies dyspnea and Denies dyspnea on exertion Respiratory Respiratory: Reports system reviewed and no additional complaints, except as documented, Denies chest congestion, Denies cough, Denies dyspnea, Denies dyspnea on exertion and Denies wheezing Gastrointestinal Gastrointestinal: Reports system reviewed and no additional complaints, except as documented, Reports abdominal pain, Denies cramping, Reports diarrhea, Reports nausea and Reports vomiting Genitourinary Genitourinary: Reports system reviewed and no additional complaints, except as documented Musculoskeletal Musculoskeletal: Reports system reviewed and no additional complaints, except as documented and Denies back pain Integumentary/Breasts Skin/Breast: Reports system reviewed and no additional complaints, except as documented and Denies wounds Neurologic Neurologic: Reports system reviewed and no additional complaints, except as documented, Denies confusion, Denies headache(s), Denies lack of coordination, Denies vertigo and Denies weakness Psychiatric Psychiatric: Reports system reviewed and no additional complaints, except as documented, Denies anxiety, Denies confusion, Denies depression, Denies paranoia, Denies suicidal ideation and Denies tactile hallucinations Endocrine Endocrine: Reports system reviewed and no additional complaints, except as documented and Denies fatigue Hematologic/Lymphatic Hematologic/Lymphatic: Reports system reviewed and no additional complaints, except as documented and Denies lymphadenopathy Allergic/Immunologic Allergic/Immunologic: Reports system reviewed and no additional complaints, except as documented, Denies throat swelling, Denies urticaria and Denies wheezing Past Medical History Past Medical History NEUROLOGIC: Negative Neurological Disorders CARDIAC: Positive Hypertension; Negative Cardiac Disorders or Congestive Heart Failure RESPIRATORY: Negative Chronic Obstructive Pulmonary Disease (COPD) or Asthma GASTROINTESTINAL: Positive Gastrointestinal Disorders GENITOURINARY: Positive Genitourinary Disorders (FATIMAH X2); Negative Renal Disease MUSCULOSKELETAL: Negative Musculoskeletal Disorders ENDOCRINE: Positive Diabetes Mellitus Type 2; Negative Diabetes Mellitus Type 1 HEMATOLOGIC: Positive Blood Disorders and Anemia; Negative Sickle Cell Disease PSYCHO/SOCIAL: Positive Depression OTHER HISTORY: Positive Blood Transfusions; Negative Blood Transfusion Reaction or Cancer Surgical History SURGICAL: Positive Abdominal Surgery and Gastric Bypass Surgery Social History SMOKING STATUS: Never smoker SUBSTANCE USE: does not use ED Exam General Limitations: Present no limitations General appearance: Present alert and in no apparent distress Head Head exam: Present atraumatic Eye Eye exam: Present normal appearance, PERRL and EOMI ENT ENT exam: Present normal exam, normal oropharynx and mucous membranes moist Neck Neck exam: Present normal inspection, full ROM and trachea midline Chest Chest inspection: Present normal inspection and symmetric chest wall rise Respiratory Respiratory exam: Present normal lung sounds bilaterally Cardiovascular Cardiovascular exam: Present regular rate, normal rhythm and normal heart sounds Abdominal Exam Abdominal exam: Present soft, tenderness, normal bowel sounds and tenderness at [place]Bur[place]'s Point Abdominal tenderness: Present diffuse and moderate Extremities Exam Extremities exam: Present normal inspection and full ROM Back Exam Back exam: Present normal inspection and full ROM Neurological Exam Neurological exam: Present alert, oriented X3 and CN II-XII intact Psychiatric Psychiatric exam: Present normal affect and normal mood Skin Skin exam: Present warm, dry, intact and normal color Course Quality Measures none Orders Category Date Time Status CT abdomen pelvis wo con Stat Exams 11/10/24 09:55 Ordered CBC Stat Lab 11/10/24 09:55 Ordered CMP [Comprehensive Metabolic Panel] Stat Lab 11/10/24 09:55 Ordered Lipase Stat Lab 11/10/24 09:55 Ordered UA [Urinalysis] Stat Lab 11/10/24 09:55 Ordered Urine Culture Stat Lab 11/10/24 09:55 Ordered mg Hyd/Al Hyd/Anna Susp [Maalox Susp] Med 11/10/24 09:55 Once 30 ml PO X1 ONE Vital Signs Vital signs: Vital Signs Temperature 98.3 F 11/10/24 09:50 Pulse Rate 107 H 11/10/24 09:50 Respiratory Rate 18 11/10/24 09:50 Blood Pressure 130/89 H 11/10/24 09:50 Pulse Oximetry (%) 98 11/10/24 09:50 Oxygen Delivery Method Room Air 11/10/24 09:50 Abdominal Pain MDM MDM Narrative MDM Narrative:: 59-year-old female with a history of hyperlipidemia presents to the emergency room with a chief complaint of diffuse 7 out of 10 abdominal pain, vomiting, diarrhea x 2 days. Patient is hemodynamically stable and in no apparent distress. Physical examination shows diffuse abdominal pain. Patient has abdominal pain to all 4 quadrants. Patient states she was sent over by her primary care provider for a CT scan to make sure she does not have any diverticulitis Patient data External records reviewed:: [facility] previous records Clinical information provided by:: patient Social determinants that could affect healthcare access:: none Patient has the following chronic illnesses:: Hyperlipidemia How is presenting disease/condition affected by chronic disease/condition?: uneffected by Evaluation data The following diagnostics were reviewed and interpreted by me:: lab results and radiology exam(s) Lab and/or radiology exams considered but not ordered:: Labs and radiology exams considered and ordered Interpretation Summary: CT abdomen and pelvis- Medications / Prescriptions Medications or Prescriptions considered but not ordered:: Medication given Medication administrations:: Medication given Consultations Consultation(s) initiated? (list below): No Diagnosis Differential diagnosis abdominal pain: abdominal pain, acute appendicitis, gastroenteritis, small bowel obstruction and other (Diverticulitis/diverticulosis) Admission Indicated Admission indicated?: not indicated Admission Request Was there a request for admission?: No Disposition Plan Disposition Plan: Discharge Discharge Attestation Discharge Attestation: The patient and all family members were given an opportunity to ask questions and understood the discharge instructions. Discharge instructions specifically effects, indications for sooner follow up or return to the emergency department, and the expected course of current diagnosis. Patient condition: Stable Discharge Plan Prescriptions/Referrals Prescriptions/Med Rec: No Action atorvastatin 80 mg tablet 80 mg PO QDAY pantoprazole 40 mg tablet,delayed release (DR/EC) 40 mg PO QDAY Patient Comments: take 1 tablet by mouth once daily gabapentin 300 mg capsule 300 mg PO 3XD Patient Comments: take 1 capsule by mouth three times a day ergocalciferol (vitamin D2) 1,250 mcg (50,000 unit) capsule 1,250 mcg PO 1XD aripiprazole 10 mg tablet 10 mg PO QDAY Patient Comments: take 1 tablet by mouth once daily bupropion HCl 300 mg tablet extended release 24 hr 300 mg PO QDAY Patient Comments: take 1 tablet by mouth every morning duloxetine 60 mg capsule,delayed release(DR/EC) 60 mg PO 1XD Patient Comments: take 1 capsule by mouth once daily hydrocodone-acetaminophen 5-325 mg Tablet 1 tab PO Q6H PRN (Reason: Moderate Pain (Scale Score 5-6)) sucralfate 1 gram Tablet 1 g PO BID trazodone 150 mg tablet 150 mg PO HS Patient Comments: take 1 tablet by mouth at bedtime ferrous sulfate 325 mg (65 mg iron) tablet,delayed release (DR/EC) 325 mg PO Q OTHER DAY Qty: 30 0RF Patient/Caregiver Discharge Instructions Print Language: Icelandic
[2024-11-10] MEDS: MG HYD/AL HYD/SIME (Maalox Reg) SUSP 30 ML UDC PO (10:01)
[2024-11-10 10:52] LABS: Basophils % (Auto) 0 % (0-2.5); Eosinophils % (Auto) 0 % (0-10); Hematocrit 32.1 % (36.0-46.0); Hemoglobin 10.4 g/dL (12.0-16.0); Immature Granulocytes % (Auto) 0 % (0-0); Immature Granulocytes Auto 0.03 Thou/mm3 (0.00-0.00); Lymphocytes # (Auto) 1.6 Thou/mm3 (1.0-4.8); Lymphocytes % (Auto) 20 % (10-50); Mean Corpuscular HGB Conc 32.4 g/dl (31.0-37.0); Mean Corpuscular Hemoglobin 21.8 pg (25.0-35.0); Mean Corpuscular Volume 67 fL (80-100); Monocytes # (Auto) 0.7 Thou/mm3 (0.0-0.8); Monocytes % (Auto) 9 % (0-12); Neutrophils # (Auto) 5.9 Thou/mm3 (1.8-7.7); Neutrophils % (Auto) 71 % (37-80); Nucleated Red Blood Cell % 0 /100 WBC (0); Platelet Count 503 Thou/mm3 (140-440); RDW Standard Deviation 41.4 fL (36.4-46.3); Red Blood Count 4.77 Miln/mm3 (4.00-5.20); White Blood Count 8.3 Thou/mm3 (3.6-11.0)
[2024-11-10 11:20] LABS: Alanine Aminotransferase 37 U/L (10-49); Albumin, Serum 5.5 gm/dL (3.4-4.8); Albumin/Globulin Ratio 1.9 (1.2-2.2); Alkaline Phosphatase 178 U/L (46-116); Anion Gap 16 (7-16); BUN/Creatinine Ratio 7 Ratio (12-20); Bilirubin,Total 0.6 mg/dL (0.3-1.2); Blood Urea Nitrogen 17 mg/dL (9-23); Calcium 10.2 mg/dL (8.3-10.6); Calcium (Corrected) 10.2 mg/dL (8.5-10.1); Chloride 92 mMol/L (98-107); Creatinine (Component) 2.6 mg/dL (0.6-1.3); Estimated Creatinine Clearance 19.6 mL/min (>60); Globulin 2.9 gm/dL (2.3-3.5); Glucose 224 mg/dL (74-106); Lipase 42 U/L (12-53); Osmolality,Calculated 276 (275-295); Potassium 3.4 mMol/L (3.4-5.1); Sodium 134 mMol/L (136-145); Total Protein 8.4 gm/dL (5.7-8.2); eGFR 20 See Note
--- NOTE | 2024-11-10 11:24 | PD.EDRME ---
Rapid Medical Screening Exam RME Arrival date/time: 11/10/24 09:34 59-year-old female with a history of hyperlipidemia presents to the emergency room with a chief complaint of diffuse 7 out of 10 abdominal pain, vomiting, diarrhea x 2 days. I have greeted and performed a focused initial assessment of this patient. A comprehensive ED assessment and evaluation of the patient, analysis of all test results, and completion of the medical decision making process will be conducted by additional ED providers. Chief Complaint: Abdominal Pain Time Seen by Provider: 11/10/24 09:43 Vital signs: Vital Signs Temperature 98.3 F 11/10/24 09:50 Pulse Rate 107 H 11/10/24 09:50 Respiratory Rate 18 11/10/24 09:50 Blood Pressure 130/89 H 11/10/24 09:50 Pulse Oximetry (%) 98 11/10/24 09:50 Oxygen Delivery Method Room Air 11/10/24 09:50 Vital signs reviewed by provider: Yes
[2024-11-10 11:43] LABS: Collection Type, Urine Clean Catch
[2024-11-10 12:01] LABS: Bilirubin,Urine 1+ (Negative); Blood,Urine Negative (Negative); Color,Urine Yellow (Lt Yel-Yel); Glucose, Urine Negative (Negative); Granular Casts,Urine < 1 /hpf (0-1); Hyaline Casts,Urine 9 /hpf (0-1); Ketones,Urine Trace (Negative); Leukocyte Esterase,Urine Positive (Negative); Nitrite,Urine Negative (Negative); PH,Urine 5.5 (5.0-7.0); Protein,Urine 1+ (Neg - Trace); RBC,Urine 3 /hpf (0-3); Specific Gravity,Urine 1.028 (1.001-1.035); Squamous Epithelial Cell,Urine 1 /hpf (0-5); WBC,Urine 6 /hpf (0-5)
--- NOTE | 2024-11-10 12:37 | PD.EDABDPN ---
ED Abdominal Pain RME/HPI General Chief Complaint: Abdominal Pain Stated complaint: ABD PAIN FOR 2 DAYS Time seen by provider: 11/10/24 09:43 Arrival date/time: 11/10/24 09:34 Limitations: no limitations RME / HPI RME / HPI narrative: 11/10/24 09:34 59-year-old female with a history of hyperlipidemia presents to the emergency room with a chief complaint of diffuse 7 out of 10 abdominal pain, vomiting, diarrhea x 2 days. Along with flank pain to left. I have greeted and performed a focused initial assessment of this patient. A comprehensive ED assessment and evaluation of the patient, analysis of all test results, and completion of the medical decision making process will be conducted by additional ED providers. 59-year-old female with PMHx of HTN, T2DM, GERD with Linx device, gastric bypass x2, gastric sleeve, and kidney stones presenting to the emergency room with a chief complaint of diffuse 7 out of 10 abdominal pain, vomiting, diarrhea x 2 days. Along with flank pain to left. Hx of admission for fatimah earlier this year. Does not have a tie bucker. States multiple drug allergies but if given IV Benadryl first can tolerate narcotics. Related Data Home Medications ?Medication ?Instructions ?Recorded ?Confirmed aripiprazole 10 mg tablet 10 mg PO QDAY 04/13/24 06/14/24 atorvastatin 80 mg tablet 80 mg PO QDAY 04/13/24 06/14/24 bupropion HCl 300 mg 24 hr tablet, 300 mg PO QDAY 04/13/24 06/14/24 extended release duloxetine 60 mg capsule,delayed 60 mg PO 1XD 04/13/24 06/14/24 release ergocalciferol (vitamin D2) 1,250 1,250 mcg PO 1XD 04/13/24 06/14/24 mcg (50,000 unit) capsule gabapentin 300 mg capsule 300 mg PO 3XD 04/13/24 06/14/24 pantoprazole 40 mg tablet,delayed 40 mg PO QDAY 04/13/24 06/14/24 release hydrocodone 5 mg-acetaminophen 325 1 tab PO Q6H PRN Moderate Pain 06/14/24 06/14/24 mg tablet (Scale Score 5-6) sucralfate 1 gram tablet 1 g PO BID 06/14/24 06/14/24 trazodone 150 mg tablet 150 mg PO HS 06/14/24 06/14/24 Previous Rx's ?Medication ?Instructions ?Recorded ferrous sulfate 325 mg (65 mg 325 mg PO Q OTHER DAY #30 tabs 06/16/24 iron) tablet,delayed release hydrocodone 5 mg-acetaminophen 325 1 tab PO BID PRN pain 7 days #14 11/10/24 mg tablet tabs ondansetron 4 mg disintegrating 4 mg PO Q8H PRN nausea and 11/10/24 tablet vomiting #10 tabs Allergies Allergy/AdvReac Type Severity Reaction Status Date / Time hydrocodone Allergy Severe Anxiety Verified 11/10/24 09:37 hydromorphone (From Dilaudid) Allergy Severe Hives Verified 11/10/24 09:37 morphine Allergy Severe ITCHINESS Verified 11/10/24 09:37 Review of Systems Review of Systems Systems Reviewed: All systems reviewed, normal except as documented Constitutional Constitutional: Denies fever(s) Eyes Eyes: Denies eye discharge Cardiovascular Cardiovascular: Denies chest pain and Denies dyspnea Respiratory Respiratory: Denies dyspnea Gastrointestinal Gastrointestinal: Reports as per HPI Genitourinary Genitourinary: Reports as per HPI ED Exam General Limitations: Present no limitations General appearance: Present alert and in no apparent distress Head Head exam: Present atraumatic Eye Eye exam: Present normal appearance, PERRL and EOMI ENT ENT exam: Present normal exam, normal oropharynx and mucous membranes moist Neck Neck exam: Present normal inspection, full ROM and trachea midline Chest Chest inspection: Present normal inspection and symmetric chest wall rise Respiratory Respiratory exam: Present normal lung sounds bilaterally Cardiovascular Cardiovascular exam: Present regular rate, normal rhythm and normal heart sounds Abdominal Exam Abdominal exam: Present soft, tenderness (diffuse ttp, no rebound, left cvat ) and normal bowel sounds Extremities Exam Extremities exam: Present normal inspection and full ROM Back Exam Back exam: Present normal inspection and full ROM Psychiatric Psychiatric exam: Present normal affect and normal mood Skin Skin exam: Present warm, dry, intact and normal color Course Quality Measures none Orders Category Date Time Status Bedside COVID-19 Antigen Test NOW Care 11/10/24 16:45 Active Bedside Influenza A&B Antigen Test NOW Care 11/10/24 16:[address] abdomen pelvis wo con Stat Exams 11/10/24 09:55 Completed BMP [Basic Metabolic Panel] Stat Lab 11/10/24 21:30 Completed CBC Stat Lab 11/10/24 10:05 Completed CMP [Comprehensive Metabolic Panel] Stat Lab 11/10/24 10:05 Completed Lactic Acid [Lactate (Lactic Acid)] Stat Lab 11/10/24 17:08 Completed Lactic Acid, 3 HR Stat Lab 11/10/24 21:30 Completed Lipase Stat Lab 11/10/24 10:05 Completed Procalcitonin Stat Lab 11/10/24 17:08 Completed UA [Urinalysis] Stat Lab 11/10/24 11:30 Completed Urine Culture Stat Lab 11/10/24 11:30 Received VBG [Venous Blood Gas] Stat Lab 11/10/24 17:08 Completed DiphenhydrAMINE INJ [Benadryl Inj] Med 11/10/24 16:34 Discontinued 25 mg IVP X1 ONE Morphine Inj Med 11/10/24 16:34 Discontinued 4 mg IVP X1 ONE Morphine Inj Med 11/10/24 17:38 Discontinued 4 mg IVP X1 ONE Ondansetron Inj [Zofran Inj] Med 11/10/24 17:38 Discontinued 4 mg IVP X1 ONE Sodium Chloride 0.9% 1000 ml [Ns] 1,000 ml Med 11/10/24 13:59 Discontinued IV 999 mls/hr Sodium Chloride 0.9% 1000 ml [Ns] 1,000 ml Med 11/10/24 14:00 Discontinued IV 999 mls/hr mg Hyd/Al Hyd/Anna Susp [Maalox Susp] Med 11/10/24 09:55 Discontinued 30 ml PO X1 ONE Reevaluation(s) Reevaluation #1: 1736 pt crying states still in 10/10 pain, advised will add more morphine and nausea meds. Vital Signs Vital signs: Vital Signs Temperature 98.3 F 11/10/24 09:50 Pulse Rate 107 H 11/10/24 09:50 Respiratory Rate 18 11/10/24 09:50 Blood Pressure 130/89 H 11/10/24 09:50 Pulse Oximetry (%) 98 11/10/24 09:50 Oxygen Delivery Method Room Air 11/10/24 09:50 Abdominal Pain MDM MDM Narrative MDM Narrative:: Patient with history of FATIMAH in the past secondary to DM and acute on chronic diarrhea from gastric surgeries. Here for abdominal pain and diarrhea x 2 days. Found to be in FATIMAH again. Therefore decision was made to move forward with request for admission. Request for admission with Dr. Kaminski, however patient improved on repeat BMP after fluids therefore admission was declined and patient along with staff agreed to go home rather than be admitted. Up with PCP return to ER symptoms worsen Patient data External records reviewed:: [facility] previous records Clinical information provided by:: patient Social determinants that could affect healthcare access:: other (specify) Patient has the following chronic illnesses:: DM, history of FATIMAH How is presenting disease/condition affected by chronic disease/condition?: caused by Evaluation data The following diagnostics were reviewed and interpreted by me:: lab results and radiology exam(s) Lab and/or radiology exams considered but not ordered:: Chest x-ray unlikely to change the course of plan today, no shortness of breath Interpretation Summary: Patient does not have a white count, Hemoglobin 10/hct 32, creatinine of 2.6 showing FATIMAH compared to last creatinine of 1.0 from July, with blood and proteins no bacteria, glucose today 244. CT does show 1 mm nonobstructing left renal calculus and small bilateral renal cysts which can account for hematuria Medications / Prescriptions Medications or Prescriptions considered but not ordered:: Medications consider ordering Medication administrations:: Medication Administration History Discontinued Medications Al Hydrox/Mg Hydrox/Simethicone (Mg Hyd/Al Hyd/Anna (Maalox Reg) Susp 30 Ml Udc) 30 ml PO X1 ONE Stop: 11/10/24 09:56 Last Admin: 11/10/24 10:01 Dose: 30 ml Documented By: KRISTIE Diphenhydramine HCl (Diphenhydramine Inj 50 Mg/Ml Vial) 25 mg IVP X1 ONE Stop: 11/10/24 16:35 Last Admin: 11/10/24 16:50 Dose: 25 mg Documented By: HAILEY Sodium Chloride (Ns) 1,000 mls @ 999 mls/hr IV .Q1H1M ONE Stop: 11/10/24 14:59 Last Infusion: 11/10/24 18:14 Dose: Infused Documented By: Admin: 11/10/24 16:51 Dose: 999 mls/hr Documented By: ANA Sodium Chloride (Ns) 1,000 mls @ 999 mls/hr IV .Q1H1M ONE Stop: 11/10/24 15:00 Last Infusion: 11/10/24 18:13 Dose: Infused Documented By: Admin: 11/10/24 16:53 Dose: 999 mls/hr Documented By: ANA Morphine Sulfate (Morphine Sulf Inj 10 Mg/Ml Vial) 4 mg IVP X1 ONE Stop: 11/10/24 16:35 Last Admin: 11/10/24 16:51 Dose: 4 mg Documented By: HAILEY Morphine Sulfate (Morphine Sulf Inj 10 Mg/Ml Vial) 4 mg IVP X1 ONE Stop: 11/10/24 17:39 Last Admin: 11/10/24 17:53 Dose: 4 mg Documented By: JC Ondansetron HCl (Ondansetron Inj 2 Mg/Ml Inj 2 Ml) 4 mg IVP X1 ONE; Protocol Stop: 11/10/24 17:39 Last Admin: 11/10/24 17:52 Dose: 4 mg Documented By: JC See above Consultations Consultation(s) initiated? (list below): Yes Consultation #1 (Physician, Specialty, Details): 1916 call out to Hospitalist, Dr. Martinez is in ED, will come eval pt. 1947 Dr. Kaminski came down to Eval pt, pt no longer wants to stay, Dr. Kaminski recommends repeat bmp as pt has received fluids, if improved will dc home Diagnosis Differential diagnosis abdominal pain: abdominal pain, calculus of kidney, gastroenteritis and pancreatitis Most likely diagnosis given after review of the tests above:: Fatimah Diarrhea vomiting kidney stones type ii diabetes htn Admission Indicated Admission indicated?: indicated Admission Request Was there a request for admission?: Yes Admission Attestation Admission request attestation: Request for admission with Dr. Kaminski, however patient improved on repeat BMP after fluids therefore admission was declined and patient along with staff agreed to go home rather than be admitted Disposition Plan Disposition Plan: Discharge Discharge Attestation Discharge Attestation: The patient and all family members were given an opportunity to ask questions and understood the discharge instructions. Discharge instructions specifically effects, indications for sooner follow up or return to the emergency department, and the expected course of current diagnosis. Patient condition: Stable Discharge Plan Plan Patient Disposition: HOME (Self Care) Discharge Disposition comment: Follow-up with PCP in 2 to 3 days Prescriptions/Referrals Prescriptions/Med Rec: New hydrocodone-acetaminophen 5-325 mg tablet 1 tab PO BID MDD 2 PRN (Reason: pain) 7 Days Qty: 14 0RF ondansetron 4 mg tablet,disintegrating 4 mg PO Q8H PRN (Reason: nausea and vomiting) Qty: 10 0RF No Action atorvastatin 80 mg tablet 80 mg PO QDAY pantoprazole 40 mg tablet,delayed release (DR/EC) 40 mg PO QDAY Patient Comments: take 1 tablet by mouth once daily gabapentin 300 mg capsule 300 mg PO 3XD Patient Comments: take 1 capsule by mouth three times a day ergocalciferol (vitamin D2) 1,250 mcg (50,000 unit) capsule 1,250 mcg PO 1XD aripiprazole 10 mg tablet 10 mg PO QDAY Patient Comments: take 1 tablet by mouth once daily bupropion HCl 300 mg tablet extended release 24 hr 300 mg PO QDAY Patient Comments: take 1 tablet by mouth every morning duloxetine 60 mg capsule,delayed release(DR/EC) 60 mg PO 1XD Patient Comments: take 1 capsule by mouth once daily hydrocodone-acetaminophen 5-325 mg Tablet 1 tab PO Q6H PRN (Reason: Moderate Pain (Scale Score 5-6)) sucralfate 1 gram Tablet 1 g PO BID trazodone 150 mg tablet 150 mg PO HS Patient Comments: take 1 tablet by mouth at bedtime ferrous sulfate 325 mg (65 mg iron) tablet,delayed release (DR/EC) 325 mg PO Q OTHER DAY Qty: 30 0RF Referrals: Ramin Vincent FNP [Primary Care Provider] - In 1 week Problem List Clinical Impression: FATIMAH (acute kidney injury), Kidney calculi, Diarrhea, Diabetes mellitus, HTN (hypertension) Patient/Caregiver Discharge Instructions Education Materials: Managing Type 2 Diabetes, Kidney Stones Expectant Tx Print Language: Yoruba Stand Alone Forms: Milli Award Info., Patient Portal Info Letter CLIFFORD/PARLOR MAID Supervising Physician CLIFFORD/DIONNE Supervising Physician: Dr. Grewal
[2024-11-10 12:55] LABS: Clarity,Urine Hazy (Clear/Hazy)
[2024-11-10 16:25] VITALS: BP 144/100; PULSE 96; RESP 22; TEMP 36.8; O2SAT 99
[2024-11-10] MEDS: DiphenhydrAMINE INJ 50 MG/ML VIAL 25 MG IVP (16:50)
[2024-11-10] MEDS: SODIUM CHLORIDE 0.9% 1000 ML 1,000 ML 999 ML IV ×2 (16:51→16:53)
[2024-11-10] MEDS: MORPHINE SULF INJ 10 MG/ML VIAL 4 MG IVP ×2 (16:51→17:53)
[2024-11-10 17:14] LABS: Base Excess, Venous 4 (-3-3); Lactate (Lactic Acid) 2.1 mMol/L (0.4-2.0); O2 Saturation, Venous 36 % (96-97); PCO2, Venous 38 mmHg (36-56); PO2, Venous 23 mmHg (15-58); pH, Venous 7.47 (7.33-7.66)
[2024-11-10] MEDS: ONDANSETRON INJ 2 MG/ML INJ 2 ML 4 MG IVP (17:52)
[2024-11-10 18:36] VITALS: BP 98/61; PULSE 86; RESP 19; TEMP 36.7; O2SAT 97
--- NOTE | 2024-11-10 19:57 | PD.RESCONSUL ---
HPI Data of Consult Primary Care Provider: DIONNE Celis Consult Narrative Reason for consult: FATIMAH, N/V/Diarrhea History of present illness: We were called to see a 59-year-old female with past medical history of hypertension, GERD, DM2, gastric bypass and gastric sleeve came into the ED with complaints of nausea, vomiting, and diarrhea along with abdominal pain for the past 3 days. Patient stated that she had not noticed any blood in her urine but she did notice some burning sensation when she urinated. She stated that she did not have anything out of the ordinary in her diet and that she did not eat at a fast food or restaurant outside her house. She also denied having any sick contacts. She stated that she has had kidney stones in the past and that pain looks similar. She does mention that she has not been able to keep anything down since her symptoms started as she feels like she was dehydrated. She denied having any fevers, chills, blood in the stools, chest pain, shortness of breath, or blurry vision. ED course: Initially came in hypertensive and afebrile. Initial labs were relevant for FATIMAH, lactic acidosis, and UA was positive for leukocytes esterase and RBCs. Initial imaging fluid abdomen/pelvis CT which showed a 1 mm midpole nonobstructing left renal calculus without any hydronephrosis or ureteral calculi. Patient received IV fluids and pain medications in the ER. PMH: As above Social Hx: Admits smoking marijuana but denies smoking cigarettes, denies any illicit drugs or alcohol Surgical Hx: Multiple abdominal surgeries including gastric bypass, gastric sleeve, and hernia repairs. cc:: cc: Review of Systems Review of Systems Narrative Review of Systems: Constitutional: Denies sweats, Denies weight loss/gain, Denies fever, Denies chills. HEENT: Denies hearing loss, Denies ear pain, Denies postnasal drip, Denies double vision, Denies blurry vision. Respiratory: Denies shortness of breath, Denies cough, Denies wheezing. Cardiovascular: Denies chest pain, Denies palpitations, Denies sudden loss of consciousness. GI: Denies blood in stool, Denies constipation, Admits abdominal pain, Denies difficulty swallowing, Admits nausea and vomit. : Denies urinary incontinence, Admits pain while urinating, Denies increased urinary frequency. MSK: Denies joint pain, Denies joint swelling, Denies numbness. Skin: Denies rash, Denies itching, Denies easy bruising. Neuro: Denies headaches, Denies dizziness, Denies seizures. Past Medical History Past Medical History CARDIAC: Positive Hypertension; Negative Cardiac Disorders or Congestive Heart Failure RESPIRATORY: Negative Chronic Obstructive Pulmonary Disease (COPD) or Asthma GENITOURINARY: Negative Renal Disease ENDOCRINE: Positive Diabetes Mellitus Type 2; Negative Diabetes Mellitus Type 1 HEMATOLOGIC: Negative Sickle Cell Disease Surgical History SURGICAL: Positive Abdominal Surgery and Gastric Bypass Surgery Social History SMOKING STATUS: Never smoker SUBSTANCE USE: does not use Exam Vital Signs Temp Pulse Resp BP Pulse Ox O2 Del Method 98.1 F 86 19 98/61 97 Room Air 11/10/24 18:36 11/10/24 18:36 11/10/24 18:36 11/10/24 18:36 11/10/24 18:36 11/10/24 18:36 Narrative Exam General: A/O x3, no acute distress Eyes: PERRL, EOMI. Anicteric, vision grossly intact. Ears: No ear pain, no ear discharge, Hearing grossly intact. Nose: No nasal discharge. Mouth/Throat: Dry mucous membranes, no redness, no lesions. Neck: Neck supple, non-tender, no cervical lymphadenopathy. Lungs: Clear MARCELA to auscultation and percussion, No accessory muscle use. Cardio: Normal S1/S2, regular rhythm, no murmurs, no JVD Abdomen: Soft, mild generalized tenderness, no palpable masses, peristalsis present, no guarding or rebound, No flank tenderness. Extremities: Symmetrical, no significant deformities, no peripheral edema , non-tender, peripheral pulses presents. Skin: No rashes, no lesions, warm to touch. Neuro: No focal neurological deficits. motor and sensory intact Psych: Cooperative, appropriate mood and effect. Results Labs 11/10/24 10:05 11/10/24 21:30 Labs: Short CBC 11/10/24 Range/Units 10:05 WBC 8.3 (3.6-11.0) Thou/mm3 Hgb 10.4 L (12.0-16.0) g/dL Hct 32.1 L (36.0-46.0) % Plt Count 503 H (140-440) Thou/mm3 BMP 11/10/24 10:05 Sodium 134 L Potassium 3.4 Chloride 92 L Carbon Dioxide 26.0 BUN 17 Creatinine 2.6 H Glucose 224 H Calcium 10.2 Liver Function 11/10/24 Range/Units 10:05 Total Bilirubin 0.6 (0.3-1.2) mg/dL ALT 37 (10-49) U/L Alkaline Phosphatase 178 H (46-116) U/L Albumin 5.5 H (3.4-4.8) gm/dL Urine 11/10/24 Range/Units 11:30 Urine Color Yellow (Lt Yel-Yel) Urine Clarity Hazy (Clear/Hazy) Urine pH 5.5 (5.0-7.0) Ur Specific [place] 1.028 (1.001-1.035) Urine Protein 1+ A (Neg - Trace) Urine Glucose (UA) Negative (Negative) ABG Interpretation ABG results: 11/10/24 17:08 VBG pH 7.47 VBG pCO2 38 VBG pO2 23 VBG Base Excess 4 H Quality Measures Quality Measures none Medications Home Medications and Allergies Home Medications ?Medication ?Instructions ?Recorded ?Confirmed ?Type aripiprazole 10 mg tablet 10 mg PO QDAY 04/13/24 06/14/24 History atorvastatin 80 mg tablet 80 mg PO QDAY 04/13/24 06/14/24 History bupropion HCl 300 mg 24 hr tablet, 300 mg PO QDAY 04/13/24 06/14/24 History extended release duloxetine 60 mg capsule,delayed 60 mg PO 1XD 04/13/24 06/14/24 History release ergocalciferol (vitamin D2) 1,250 1,250 mcg PO 1XD 04/13/24 06/14/24 History mcg (50,000 unit) capsule gabapentin 300 mg capsule 300 mg PO 3XD 04/13/24 06/14/24 History pantoprazole 40 mg tablet,delayed 40 mg PO QDAY 04/13/24 06/14/24 History release hydrocodone 5 mg-acetaminophen 325 1 tab PO Q6H PRN Moderate Pain 06/14/24 06/14/24 History mg tablet (Scale Score 5-6) sucralfate 1 gram tablet 1 g PO BID 06/14/24 06/14/24 History trazodone 150 mg tablet 150 mg PO HS 06/14/24 06/14/24 History Allergies Allergy/AdvReac Type Severity Reaction Status Date / Time hydrocodone Allergy Severe Anxiety Verified 11/10/24 09:37 hydromorphone (From Dilaudid) Allergy Severe Hives Verified 11/10/24 09:37 morphine Allergy Severe ITCHINESS Verified 11/10/24 09:37 Visit Medications Discontinued Medications Al Hydrox/Mg Hydrox/Simethicone (Mg Hyd/Al Hyd/Anna (Maalox Reg) Susp 30 Ml Udc) 30 ml PO X1 ONE Stop: 11/10/24 09:56 Last Admin: 11/10/24 10:01 Dose: 30 ml Diphenhydramine HCl (Diphenhydramine Inj 50 Mg/Ml Vial) 25 mg IVP X1 ONE Stop: 11/10/24 16:35 Last Admin: 11/10/24 16:50 Dose: 25 mg Sodium Chloride (Ns) 1,000 mls @ 999 mls/hr IV .Q1H1M ONE Stop: 11/10/24 14:59 Last Infusion: 11/10/24 18:14 Dose: Infused Sodium Chloride (Ns) 1,000 mls @ 999 mls/hr IV .Q1H1M ONE Stop: 11/10/24 15:00 Last Infusion: 11/10/24 18:13 Dose: Infused Morphine Sulfate (Morphine Sulf Inj 10 Mg/Ml Vial) 4 mg IVP X1 ONE Stop: 11/10/24 16:35 Last Admin: 11/10/24 16:51 Dose: 4 mg Morphine Sulfate (Morphine Sulf Inj 10 Mg/Ml Vial) 4 mg IVP X1 ONE Stop: 11/10/24 17:39 Last Admin: 11/10/24 17:53 Dose: 4 mg Ondansetron HCl (Ondansetron Inj 2 Mg/Ml Inj 2 Ml) 4 mg IVP X1 ONE; Protocol Stop: 11/10/24 17:39 Last Admin: 11/10/24 17:52 Dose: 4 mg Assessment & Plan Plan 59-year-old female with past medical history of hypertension, GERD, DM2, gastric bypass and gastric sleeve came into the ED with complaints of nausea, vomiting, and diarrhea along with abdominal pain for the past 3 days. Admitted for FATIMAH in the setting of poor oral intake secondary to intractable nausea and vomiting and diarrhea. #FATIMAH #Poor oral intake #Intractable nausea and vomiting #Diarrhea #UTI #Left renal calculi, 1 mm # Elevated lactic acid Patient came in with complaints of around 3 days with nausea, vomiting, and diarrhea along with abdominal pain and dysuria. Patient's baseline creatinine is around 1 and today was 2.6 likely prerenal in the setting of poor oral intake. Patient's abdomen/pelvis CT that showed a 1 mm left renal calculi which was nonobstructing and there was no hydronephrosis or ureteral calculi. Patient's UA was positive for leukocytes esterase along with RBCs. Lactic acid 2.1 In the ED got 2 L of IV fluids Plan: Recommend 1 L additional IV fluids Recommend repeating CMP and lactic acid to see if creatinine improves and lactic is not uptrending. If improvement would recommend to discharge. Recommend ceftriaxone and transition to p.o. antibiotics Recommend pain management with PO pain meds Would recommend to follow with PCP in 2 days with repeat renal panel Chronic diseases: #Hx of HTN #Hx of DM2 #Hx of GERD s/p Linx device #Hx of gastric bypass and gastric sleeve Continue current meds Thank you for allowing us to be part of the patient's care. Internal medicine team. Case disclosed with Attending Dr. Gordy Duque PGY1 Disclaimer: Even though this this note was dictated by speech recognition and even though it was carefully revised there may still be minor errors in medical claims representative due to voice recognition software. Attending Provider Attestation/Addendum I reviewed labs, imaging, EKG, home medications and prior available records. Face to face evaluation was performed by me. I have personally examined the patient and discussed assessment and plan with the IM team. I reviewed the resident note and agree with the plan with exceptions as below. Nausea and vomiting Generalized abdominal pain Acute diarrhea Gastroenteritis Nephrolithiasis FATIMAH, likely prerenal in the setting of dehydration Patient's symptoms improved at the time of my evaluation Status post IV hydration Repeat BMP. If stable or improving, may discharge home and follow-up with PCP. Repeat labs to ensure improvement in kidney function Avoid nephrotoxins
[2024-11-10 20:13] LABS: Reflex Lactate? Y
[2024-11-10 21:45] LABS: Lactic Acid, 3 HR 1.7 mMol/L (0.4-2.0)
[2024-11-10 22:05] LABS: Anion Gap 13 (7-16); BUN/Creatinine Ratio 13 Ratio (12-20); Blood Urea Nitrogen 21 mg/dL (9-23); Carbon Dioxide 25.1 mMol/L (20.0-31.0); Chloride 101 mMol/L (98-107); Creatinine (Component) 1.6 mg/dL (0.6-1.3); Potassium 3.4 mMol/L (3.4-5.1); Sodium 139 mMol/L (136-145)
[2024-11-10 22:06] LABS: Calcium 8.4 mg/dL (8.3-10.6); Estimated Creatinine Clearance 31.8 mL/min (>60); Glucose 144 mg/dL (74-106); Osmolality,Calculated 283 (275-295); eGFR 36 See Note
[2024-11-10 23:00] VITALS: BP 138/85; PULSE 78; RESP 19; TEMP 36.6; O2SAT 100
== END 2024-11-11 | disposition home or self-care (01) ==
PROVIDERS: Nurse Practitioner Family; Physician Assistant; Emergency Provider Family Medicine
DX: N17.9 Acute kidney failure, unspecified (principal); N20.0 Calculus of kidney; E11.9 Type 2 diabetes mellitus without complications; I10 Essential (primary) hypertension; R19.7 Diarrhea, unspecified
CPT/HCPCS: 36415; 74176; 80048; 80053; 81001; 82803; 83605; 83690; 84145; 85025; 87086; 87400; 87811; 96361; 96374; 96375; 96376; 99284; J1200; J2270; J2405; J7030; A9270

== ENCOUNTER 2024-12-29 14:16 | Inpatient (IN) | payer MEDICAID, SELFPAY ==
[2024-12-29] VITALS (10 sets, daily range): BP systolic 73–105; BP diastolic 49–72; PULSE 74–110; RESP 18–22; TEMP 36.8–37.2; O2SAT 96–100; BMI 25.2; BMI 25.7
--- NOTE | 2024-12-29 14:37 | XR_ITS ---
Examination: AP chest single view Technique one AP portable upright chest single view Date and time: December 29, 2024 1453 hours INDICATIONS: Chest pain shortness of breath weakness today. FINDINGS: Normal heart size Mild elevation right hemidiaphragm. Prominent osteopenia. No pneumonia or pulmonary edema IMPRESSION: No pneumonia or pulmonary edema.
[2024-12-29 15:08] LABS: Basophils # (Auto) 0.0 Thou/mm3 (0.0-0.2); Basophils % (Auto) 0 % (0-2.5); Eosinophils # (Auto) 0.1 Thou/mm3 (0.0-0.5); Eosinophils % (Auto) 1 % (0-10); Hematocrit 37.3 % (36.0-46.0); Hemoglobin 11.3 g/dL (12.0-16.0); Immature Granulocytes Auto 0.03 Thou/mm3 (0.00-0.00); Lymphocytes # (Auto) 1.2 Thou/mm3 (1.0-4.8); Lymphocytes % (Auto) 13 % (10-50); Mean Corpuscular HGB Conc 30.3 g/dl (31.0-37.0); Mean Corpuscular Hemoglobin 20.9 pg (25.0-35.0); Mean Corpuscular Volume 69 fL (80-100); Monocytes # (Auto) 0.6 Thou/mm3 (0.0-0.8); Monocytes % (Auto) 6 % (0-12); Neutrophils # (Auto) 7.0 Thou/mm3 (1.8-7.7); Neutrophils % (Auto) 79 % (37-80); Nucleated Red Blood Cell # 0.00 Thou/mm3 (0.00-0.00); Nucleated Red Blood Cell % 0 /100 WBC (0); Platelet Count 590 Thou/mm3 (140-440); RDW Standard Deviation 44.0 fL (36.4-46.3); Red Blood Count 5.41 Miln/mm3 (4.00-5.20); White Blood Count 8.9 Thou/mm3 (3.6-11.0)
[2024-12-29] MEDS: SODIUM CHLORIDE 0.9% 1000 ML 1,000 ML 999 ML IV ×3 (15:16→18:51)
[2024-12-29 15:18] LABS: INR 0.9 (0.9-1.3); Partial Thromboplastin Time 27.2 Seconds (22.0-36.0); Prothrombin Time 10.4 Seconds (9.0-12.2)
[2024-12-29 15:20] LABS: Alanine Aminotransferase 41 U/L (10-49); Albumin, Serum 5.7 gm/dL (3.4-4.8); Albumin/Globulin Ratio 1.7 (1.2-2.2); Alkaline Phosphatase 183 U/L (46-116); Anion Gap 17 (7-16); Aspartate Amino Transferase 30 U/L (0-34); BUN/Creatinine Ratio 9 Ratio (12-20); Bilirubin,Total 0.5 mg/dL (0.3-1.2); Blood Urea Nitrogen 34 mg/dL (9-23); Calcium 10.3 mg/dL (8.3-10.6); Calcium (Corrected) 10.3 mg/dL (8.5-10.1); Carbon Dioxide 19.8 mMol/L (20.0-31.0); Chloride 94 mMol/L (98-107); Creatinine (Component) 3.7 mg/dL (0.6-1.3); Estimated Creatinine Clearance 13.9 mL/min (>60); Globulin 3.4 gm/dL (2.3-3.5); Glucose 266 mg/dL (74-106); Lipase 84 U/L (12-53); Magnesium 2.7 mg/dL (1.6-2.6); Osmolality,Calculated 279 (275-295); Potassium 4.1 mMol/L (3.4-5.1); Sodium 131 mMol/L (136-145); Total Protein 9.1 gm/dL (5.7-8.2); Troponin I < 0.020 ng/mL (0.0-0.045); eGFR 13 See Note
[2024-12-29 15:32] LABS: B-Type Natriuretic Peptide < 20 pg/mL (0-100)
--- NOTE | 2024-12-29 15:48 | PD.EDWEAK ---
ED Weakness RME/HPI General Chief complaint: Shortness of Breath/Dyspnea Stated complaint: LABORED BREATHING, ABD PAIN, N/V/D X 2 DAYS Time Seen by Provider: 12/29/24 15:40 Arrival date/time: 12/29/24 14:16 RME / HPI RME / HPI Narrative: DR. BURGESS MAIN ED EVALUATION: 59-year-old female with past medical history of hypertension, type 2 diabetes, GERD, gastric bypass, and gastric sleeve presents to the Emergency Department with complaint of light-headedness and dizziness for the past week, with one episode of near syncope. She reports nausea and diarrhea for the past 2 days but denies vomiting. She is currently being treated for a urinary tract infection with Macrobid and taking Pyridium. She also reports severe aching lower abdominal pain. Related Data Home Medications ?Medication ?Instructions ?Recorded ?Confirmed aripiprazole 10 mg tablet 10 mg PO QDAY 04/13/24 06/14/24 atorvastatin 80 mg tablet 80 mg PO QDAY 04/13/24 06/14/24 bupropion HCl 300 mg 24 hr tablet, 300 mg PO QDAY 04/13/24 06/14/24 extended release duloxetine 60 mg capsule,delayed 60 mg PO 1XD 04/13/24 06/14/24 release ergocalciferol (vitamin D2) 1,250 1,250 mcg PO 1XD 04/13/24 06/14/24 mcg (50,000 unit) capsule gabapentin 300 mg capsule 300 mg PO 3XD 04/13/24 06/14/24 pantoprazole 40 mg tablet,delayed 40 mg PO QDAY 04/13/24 06/14/24 release hydrocodone 5 mg-acetaminophen 325 1 tab PO Q6H PRN Moderate Pain 06/14/24 06/14/24 mg tablet (Scale Score 5-6) sucralfate 1 gram tablet 1 g PO BID 06/14/24 06/14/24 trazodone 150 mg tablet 150 mg PO HS 06/14/24 06/14/24 Previous Rx's ?Medication ?Instructions ?Recorded ferrous sulfate 325 mg (65 mg 325 mg PO Q OTHER DAY #30 tabs 06/16/24 iron) tablet,delayed release ondansetron 4 mg disintegrating 4 mg PO Q8H PRN nausea and 11/10/24 tablet vomiting #10 tabs Allergies Allergy/AdvReac Type Severity Reaction Status Date / Time hydrocodone Allergy Severe Anxiety Verified 12/29/24 14:21 hydromorphone (From Dilaudid) Allergy Severe Hives Verified 12/29/24 14:21 morphine Allergy Severe ITCHINESS Verified 12/29/24 14:21 Review of Systems Review of Systems Systems Reviewed: All systems reviewed, normal except as documented Past Medical History Past Medical History CARDIAC: Positive Hypertension GASTROINTESTINAL: Positive Gastrointestinal Disorders GENITOURINARY: Positive Genitourinary Disorders (FATIMAH X2) ENDOCRINE: Positive Diabetes Mellitus Type 2 HEMATOLOGIC: Positive Blood Disorders and Anemia PSYCHO/SOCIAL: Positive Depression OTHER HISTORY: Positive Blood Transfusions Surgical History SURGICAL: Positive Abdominal Surgery, Gastric Bypass Surgery and Tubal Ligation Social History SMOKING STATUS: Former smoker SUBSTANCE USE: does not use ALCOHOL: Never ED Exam Narrative Physical exam: GENERAL APPEARANCE: alert and oriented x 4, well-developed, well-nourished, no acute distress VITALS: All vitals were reviewed and the pulse ox is 100% on room air, which is normal according to my interpretation. HEENT: Normocephalic, atraumatic; pupils equal, round, reactive to light; EOMI; mucous membranes pink, dry; oropharynx clear NECK: Supple LUNGS: CTABL; no wheezes, no rales, no rhonchi HEART: Regular rate, regular rhythm; normal S1, S2; no murmurs ABDOMEN: non distended; normal BS; she multiple old surgical scars but soft, no tenderness, no guarding, no rebound; no masses, no organomegaly, no hernia BACK: no CVA tenderness EXTREMITIES: atraumatic; no edema NEUROLOGIC: awake; alert and oriented x4; cranial nerves II-XII grossly intact; no focal sensory or motor deficits PSYCHIATRIC: appropriate mood and affect SKIN: warm, dry, normal color; no rashes Course Quality Measures none Orders Category Date Time Status CT Screening NOW Care 12/29/24 15:48 Completed [employer] NOW Care 12/29/24 14:37 Active In and Out Catheter X1 Care 12/29/24 15:39 Active Insert IV NOW Care 12/29/24 14:[address] abdomen pelvis wo con Stat Exams 12/29/24 17:08 Taken XR chest 1V portable Stat Exams 12/29/24 14:37 Completed B-Type Natriuretic Peptide Stat Lab 12/29/24 14:53 Completed BMP [Basic Metabolic Panel] Stat Lab 12/29/24 17:15 Ordered CBC Stat Lab 12/29/24 14:53 Completed Comprehensive Metabolic Panel Stat Lab 12/29/24 14:53 Completed Lipase Stat Lab 12/29/24 14:53 Completed Magnesium Stat Lab 12/29/24 14:53 Completed Partial Thromboplastin Time Stat Lab 12/29/24 14:53 Completed Prothrombin Time with INR Stat Lab 12/29/24 14:53 Completed Troponin I Stat Lab 12/29/24 14:53 Completed Urinalysis Stat Lab 12/29/24 14:37 Ordered Ondansetron Inj [Zofran Inj] Med 12/29/24 15:46 Discontinued 4 mg IVP X1 ONE Sodium Chloride 0.9% 1000 ml [Ns] 1,000 ml Med 12/29/24 15:13 Discontinued IV 999 mls/hr Sodium Chloride 0.9% 1000 ml [Ns] 1,000 ml Med 12/29/24 15:39 Discontinued IV 999 mls/hr Sodium Chloride 0.9% 250 ml [Ns] 250 ml Med 12/29/24 14:38 Discontinued IV 999 mls/hr fentaNYL INJ [Sublimaze Inj] Med 12/29/24 15:46 Discontinued 50 mcg IVP X1 ONE Vital Signs Vital signs: Vital Signs Temperature 98.2 F 12/29/24 14:30 Pulse Rate 110 H 12/29/24 14:30 Respiratory Rate 22 H 12/29/24 14:30 Blood Pressure 73/49 L 12/29/24 14:30 Pulse Oximetry (%) 97 12/29/24 14:30 Oxygen Delivery Method Room Air 12/29/24 14:30 Weakness MDM Narrative MDM Narrative:: ISheridan am scribing for and in the presence of Dr. Burgess. Patient data External records reviewed:: [facility] previous records Clinical information provided by:: patient Social determinants that could affect healthcare access:: none Patient has the following chronic illnesses:: Hypertension, type 2 diabetes, GERD, gastric bypass, and gastric sleeve. She is currently being treated for a urinary tract infection with Macrobid and taking Pyridium. How is presenting disease/condition affected by chronic disease/condition?: exacerbated by Evaluation data The following diagnostics were reviewed and interpreted by me:: lab results and radiology exam(s) Lab and/or radiology exams considered but not ordered:: none Interpretation Summary: Procedure(s): XR chest 1V portable Accession Number(s): [id number] cc: Marleen (LUCIANO),Marcus WOLF; Joshua Hargrove MD~ Examination: AP chest single view Technique one AP portable upright chest single view Date and time: December 29, 2024 1453 hours INDICATIONS: Chest pain shortness of breath weakness today. FINDINGS: Normal heart size Mild elevation right hemidiaphragm. Prominent osteopenia. No pneumonia or pulmonary edema IMPRESSION: No pneumonia or pulmonary edema. Dictated By: Joshua Hargrove MD Medications / Prescriptions Medications or Prescriptions considered but not ordered:: none Medication administrations:: Medication Administration History Discontinued Medications Fentanyl Citrate (Fentanyl Cit Inj 50 Mcg/Ml Amp 2ml) 50 mcg IVP X1 ONE Stop: 12/29/24 15:47 Last Admin: 12/29/24 16:59 Dose: 50 mcg Documented By: SOPHIA Sodium Chloride (Ns) 250 mls @ 999 mls/hr IV .Q16M ONE Stop: 12/29/24 14:53 Last Admin: 12/29/24 15:16 Dose: Not Given Documented By: SOPHIA Non-Admin Reason: Cancelled by Provider Sodium Chloride (Ns) 1,000 mls @ 999 mls/hr IV .Q1H1M ONE Stop: 12/29/24 16:13 Last Infusion: 12/29/24 15:46 Dose: Infused Documented By: Admin: 12/29/24 15:16 Dose: 999 mls/hr Documented By: SOPHIA Sodium Chloride (Ns) 1,000 mls @ 999 mls/hr IV .Q1H1M ONE Stop: 12/29/24 16:39 Last Infusion: 12/29/24 17:01 Dose: Infused Documented By: Admin: 12/29/24 15:47 Dose: 999 mls/hr Documented By: SOPHIA Ondansetron HCl (Ondansetron Inj 2 Mg/Ml Inj 2 Ml) 4 mg IVP X1 ONE; Protocol Stop: 12/29/24 15:47 Last Admin: 12/29/24 16:59 Dose: 4 mg Documented By: SOPHIA see above Consultations Consultation(s) initiated? (list below): No Diagnosis Weakness Differential Diagnosis: other (UTI with systemic symptoms, volume depletion from gastrointestinal losses, electrolyte imbalance due to bariatric surgery history) Most likely diagnosis given after review of the tests above:: No official diagnoses at this time, still pending diagnostic tests. Patient signout to the overnight caregiver provider. Admission Indicated Admission indicated?: not indicated Explain why admission is indicated or not indicated:: No final disposition plan at this time, still pending diagnostic tests. Patient signout to the overnight caregiver provider. Admission Request Was there a request for admission?: No Disposition Plan Disposition Plan: other (specify) (Signed out to Dr. Loomis, pending abdomen/pelvis CT and final disposition.) Discharge Plan Prescriptions/Referrals Prescriptions/Med Rec: No Action ondansetron 4 mg tablet,disintegrating 4 mg PO Q8H PRN (Reason: nausea and vomiting) Qty: 10 0RF atorvastatin 80 mg tablet 80 mg PO QDAY pantoprazole 40 mg tablet,delayed release (DR/EC) 40 mg PO QDAY Patient Comments: take 1 tablet by mouth once daily gabapentin 300 mg capsule 300 mg PO 3XD Patient Comments: take 1 capsule by mouth three times a day ergocalciferol (vitamin D2) 1,250 mcg (50,000 unit) capsule 1,250 mcg PO 1XD aripiprazole 10 mg tablet 10 mg PO QDAY Patient Comments: take 1 tablet by mouth once daily bupropion HCl 300 mg tablet extended release 24 hr 300 mg PO QDAY Patient Comments: take 1 tablet by mouth every morning duloxetine 60 mg capsule,delayed release(DR/EC) 60 mg PO 1XD Patient Comments: take 1 capsule by mouth once daily hydrocodone-acetaminophen 5-325 mg Tablet 1 tab PO Q6H PRN (Reason: Moderate Pain (Scale Score 5-6)) sucralfate 1 gram Tablet 1 g PO BID trazodone 150 mg tablet 150 mg PO HS Patient Comments: take 1 tablet by mouth at bedtime ferrous sulfate 325 mg (65 mg iron) tablet,delayed release (DR/EC) 325 mg PO Q OTHER DAY Qty: 30 0RF Referrals: Ramin Vincent FNP [Primary Care Provider] - In 1 week Problem List Clinical Impression: FATIMAH (acute kidney injury), Diarrhea Patient/Caregiver Discharge Instructions Print Language: Czech
[2024-12-29] MEDS: fentaNYL CIT INJ 50 mCg/ML AMP 2ML IVP (16:59)
[2024-12-29] MEDS: ONDANSETRON INJ 2 MG/ML INJ 2 ML 4 MG IVP (16:59)
--- NOTE | 2024-12-29 17:08 | XR_ITS ---
Examination: CT abdomen and pelvis without contrast. Coronal 3-D reconstructions. Sagittal 2-D reconstructions. Date and time of exam:December 29, 2024, 1725 hours Comparison November 10, 2024 INDICATIONS: Lower abdominal pain nausea vomiting diarrhea today, history 1 mm left renal calculus on CT study November 10, 2024 CTDI: vol (mGy): 7.33 DLP: (mGycm): 403 Technique: Axial images of the abdomen have been obtained, 3 mm slice thickness Intravenous contrast material has not been administered. Low dose protocols were performed. One or more of the following dose reduction techniques were used; automated exposure control, adjustment of the mA and/or KV according to patient size, use of iterative reconstruction technique. Findings: No focal liver or splenic lesions Absent gallbladder No pancreatic mass Gastric sutures and distal esophageal surgical ring Normal adrenal glands Moderate renal parenchymal scar formation 1 mm upper pole left renal calculus Aortic calcification no aneurysmal dilatation Normal appendix No bowel obstruction Fluid distended small bowel loops in the lower abdomen for instance axial image 161 Colonic diverticulosis, no diverticulitis Atrophic uterus Urinary bladder intact Prominent osteopenia Impression : 1 mm upper pole nonobstructing left renal calculus Normal appendix Fluid distended small bowel loops in the lower abdomen, differential would include early small bowel obstruction, consider Gastrografin small bowel series follow-up
--- NOTE | 2024-12-29 18:02 | EDNOTE_ITS ---
Emergency Room Addendum Addendum Narrative: 1800: Care assumed from Dr. Burgess the previous shift emergency physician. Past medical, surgical, social and family history reviewed. Vitals and home medications reviewed. Results and treatment plan discussed. I will assume the care of the patient at this time and will follow the patient, pending CT abdomen pelvis. Please refer to the emergency department record for history and examination from initial visit. 183: Patient's blood pressure is 99 systolically. Additional 1L NS IVF ordered. 1919: Discussed case with the resident physician, attending Dr. Mckenna from Hospitalist service regarding admission. Discussed patients ED course, exam findings, labs, and radiology results. The Hospitalist agrees to accept the patient for admission. Diagnoses: dehydration, diarrhea RADIOLOGY RESULTS: [facility] Report Signed Patient: CHASITY CLAUDIO Record#: [id number] Birthdate: 1965 Age/Sex: 59 / F Location: [facility] Attending Dr: Ordering Physician: Chasity Burgess MD Date of Service: 12/29/24 Procedure(s): CT abdomen pelvis wo con Accession Number(s): [id number] cc: Ramin Vincent; Joshua Hargrove MD; Chasity Burgess MD~ Examination: CT abdomen and pelvis without contrast. Coronal 3-D reconstructions. Sagittal 2-D reconstructions. Date and time of exam:December 29, 2024, 1725 hours Comparison November 10, 2024 INDICATIONS: Lower abdominal pain nausea vomiting diarrhea today, history 1 mm left renal calculus on CT study November 10, 2024 CTDI: vol (mGy): 7.33 DLP: (mGycm): 403 Technique: Axial images of the abdomen have been obtained, 3 mm slice thickness Intravenous contrast material has not been administered. Low dose protocols were performed. One or more of the following dose reduction techniques were used; automated exposure control, adjustment of the mA and/or KV according to patient size, use of iterative reconstruction technique. Findings: No focal liver or splenic lesions Absent gallbladder No pancreatic mass Gastric sutures and distal esophageal surgical ring Normal adrenal glands Moderate renal parenchymal scar formation 1 mm upper pole left renal calculus Aortic calcification no aneurysmal dilatation Normal appendix No bowel obstruction Fluid distended small bowel loops in the lower abdomen for instance axial image 161 Colonic diverticulosis, no diverticulitis Atrophic uterus Urinary bladder intact Prominent osteopenia Impression : 1 mm upper pole nonobstructing left renal calculus Normal appendix Fluid distended small bowel loops in the lower abdomen, differential would include early small bowel obstruction, consider Gastrografin small bowel series follow-up Dictated By: Joshua Hargrove MD Signed By: <Electronically signed by Joshua Hargrove MD in [place]> 12/29/24 [id number]
[2024-12-29 18:17] LABS: Anion Gap 11 (7-16); BUN/Creatinine Ratio 10 Ratio (12-20); Blood Urea Nitrogen 28 mg/dL (9-23); Calcium 8.5 mg/dL (8.3-10.6); Carbon Dioxide 21.1 mMol/L (20.0-31.0); Chloride 105 mMol/L (98-107); Creatinine (Component) 2.7 mg/dL (0.6-1.3); Estimated Creatinine Clearance 19.0 mL/min (>60); Glucose 118 mg/dL (74-106); Osmolality,Calculated 280 (275-295); Potassium 4.1 mMol/L (3.4-5.1); Sodium 137 mMol/L (136-145); eGFR 19 See Note
--- NOTE | 2024-12-29 20:13 | ECHO_ITS ---
Transthoracic Echo Report Ht (in): 62 Wt (lb): 138 Exam Location: Echo Lab Status: Inpatient Cruller Maker: Dafne Escobar Indications: Procedure Performed: BP: 110 / 76 HR: 88 Technical Quality: Technically difficult study MEASUREMENTS (Male / Female) Normal Values 2D ECHO LV Diastolic Diameter PLAX 4.3 cm 4.2 - 5.9 / 3.9 - 5.3 cm LV Systolic Diameter PLAX 3.0 cm IVS Diastolic Thickness 0.7 cm 0.6 - 1.0 / 0.6 - 0.9 cm LVPW Diastolic Thickness 0.8 cm 0.6 - 1.0 / 0.6 - 0.9 cm LV Relative Wall Thickness 0.3 LVOT Diameter 1.9 cm LA Systolic Diameter LX 3.5 cm 3.0 - 4.0 / 2.7 - 3.8 cm LA Volume Index 27.5 cm?/m? 16 - 28 cm?/m? M-MODE Aortic Root Diameter MM 1.9 cm LA Systolic Diameter MM 3.3 cm LA Ao Ratio MM 1.7 AV Cusp Separation MM 1.3 cm DOPPLER AV Peak Velocity 151.0 cm/s AV Peak Gradient 9.1 mmHg AV Mean Gradient 5.0 mmHg AV Velocity Time Integral 36.0 cm LVOT Peak Velocity 117.0 cm/s LVOT Peak Gradient 5.5 mmHg LVOT Velocity Time Integral 24.5 cm LVOT Cardiac Index 3665.3 cm?/min?m? AV Area Cont Eq vti 1.9 cm? AV Area Cont Eq pk 2.2 cm? MV Area PHT 3.4 cm? MR Peak Velocity 284.0 cm/s MR Peak Gradient 32.3 mmHg Mitral E Point Velocity 92.6 cm/s Mitral A Point Velocity 91.2 cm/s Mitral E to A Ratio 1.0 LV E' Lateral Velocity 11.0 cm/s Mitral E to LV E' Lateral Ratio 8.4 LV E' Septal Velocity 10.7 cm/s Mitral E to LV E' Septal Ratio 8.7 TR Peak Velocity 255.0 cm/s TR Peak Gradient 26.0 mmHg PV Peak Velocity 105.0 cm/s PV Peak Gradient 4.4 mmHg FINDINGS Left Ventricle Normal left ventricular size, wall thickness, systolic function with no obvious regional wall motion abnormalities. Normal left ventricular diastolic filling pattern for age. The ejection fraction is visually estimated at 55%. Right Ventricle The right ventricle is normal in size and systolic function. Left Atrium The left atrium is normal by two-dimensional, color flow and Doppler imaging with no structural abnormalities, no thrombus formation present. Right Atrium The right atrium is normal by two-dimensional imaging, color flow and Doppler imaging with no structural abnormalities, no thrombus formation present. Atrial Septum The interatrial septum appears normal with no evidence of a shunt. Aorta The aorta is normal by two-dimensional, color flow and Doppler interrogation. Mitral Valve The mitral valve is normal by two-dimensional, color flow and Doppler interrogation. Trace mitral regurgitation. Aortic Valve The aortic valve is trileaflet and normal by two-dimensional, color flow and Doppler interrogation. There is no significant aortic valve regurgitation. Tricuspid Valve The tricuspid valve is normal by two-dimensional, color flow and Doppler interrogation.there is trace tricuspid valve regurgitation. Pulmonic Valve The pulmonic valve is not well visualized. There is no significant pulmonic valve regurgitation. Vessels The pulmonary artery appears normal. The inferior vena cava pulmonary and hepatic veins appear normal. Pericardium The pericardium is normal by two-dimensional imaging. There is no significant pericardial effusion. CONCLUSIONS Indication: Presyncope Normal LV size and function. Estimated EF at 55-60 %. Normal left ventricular diastolic function. The RV is normal in size and systolic function. Trace MR and TR. NO pericardial effusions Perez Hogue (Electronically Signed) Final Date: 30 December 2024 23:36
[2024-12-29 20:55] LABS: Thyroid Stimulating Hormone 1.02 uIU/mL (0.55-4.78)
[2024-12-29] MEDS: HEPARIN SOD INJ 5000 UNIT/ML VIAL SC (21:36)
--- NOTE | 2024-12-29 21:38 | ESHP_ITS ---
<Statement entered by Yoel Mckenna MD - 12/30/24 07:43> I have discussed and was present for the essential components of the history, physical examination, diagnosis, and treatment plan with the resident. I agree with the patient's care as documented by the resident and amended herein by me. Yoel Mckenna MD FACP. Documentation for date of: 12/29/24 HPI History of Present Illness History of present illness: Ally Christopher is a 59-year-old F with a PMH of HTN, T2DM on Mounjaro, HLD, GERD 2/2 hiatal hernia that has resolved with Linx device, gastric bypass x2 (2007), gastric sleeve (2014), diabetic neuropathy, sciatica, and depression who presents today with syncopal episode, abdominal pain, and diarrhea. According to patient, she began having symptoms of diarrhea, nausea, appetite loss, lightheadedness, and stomach pain beginning 2 days ago. Today, she almost passed out after she was taking a hot bath and became lightheaded when she stood up. With regards to her diarrhea, patient describes stool as runny and red (with the caveat that she had also drank copious amounts of watermelon juice to rehydrate herself) and that she has 7+ bowel movements per day. Of note, she endorses chronic diarrhea and had actually been recently hospitalized in June, July and November of this year for similar symptoms. At the time of interview, patient only endorsed stomach pain that was primarily localized to the suprapubic area and described the pain as a 6-7 out of 10 in severity. In the ED, vitals showed: BP 73/49 HR 110 RR 22 Temp 98.2 SpO2 97% on room air ED Course: CBC showed slight microcytic anemia and thrombocytosis. CMP showed low sodium 131, elevated BUN and creatinine with reduced EGFR, high blood glucose 266, slight hypercalcemia and hypermagnesemia, and elevated alkaline phosphatase and lipase. UA showed 4+ glucose, 1+ protein and the presence of amorphous crystals and hyaline casts. Imaging: Chest x-ray showed prominent osteopenia but was otherwise unremarkable. CTAP showed a 1 mm upper pole nonobstructing left renal calculus, and fluid distended small bowel loops in the lower abdomen (possibly indicative of early SBO, Gastrografin small bowel series recommended). In the ED, patient was given 3 L NS bolus, IV fentanyl, IV Zofran. Patient was admitted for the work-up and management of syncopal episode, intractable diarrhea, abdominal pain w/ concern for SBO, and FATIMAH. Review of Systems Review of Systems Narrative Review of Systems: General: Denies fevers or chills HEENT: Denies congestion or sore throat Heart: Denies chest pain or palpitations Lungs: Endorses shortness of breath. Denies cough Abdomen: Endorses nausea, appetite loss, suprapubic abdominal pain, and diarrhea. Denies vomiting, constipation, or blood in stool Genitourinary: Endorses urinary frequency and dysuria. Denies urgency, or hematuria Neurology: Endorses lightheadedness, especially upon standing . Denies any changes in vision, or difficulty speaking Review of systems otherwise negative except what is mentioned above. Past Medical History Past Medical History NEUROLOGIC: Negative Neurological Disorders CARDIAC: Positive Cardiac Disorders (HTN) and Hypertension; Negative Congestive Heart Failure RESPIRATORY: Negative Chronic Obstructive Pulmonary Disease (COPD) or Asthma GASTROINTESTINAL: Positive Gastrointestinal Disorders GENITOURINARY: Positive Genitourinary Disorders (FATIMAH X2) and Renal Disease MUSCULOSKELETAL: Negative Musculoskeletal Disorders ENDOCRINE: Positive Diabetes Mellitus Type 2; Negative Diabetes Mellitus Type 1 HEMATOLOGIC: Positive Blood Disorders and Anemia; Negative Sickle Cell Disease PSYCHO/SOCIAL: Positive Depression OTHER HISTORY: Positive Blood Transfusions; Negative Blood Transfusion Reaction or Cancer Surgical History SURGICAL: Positive Abdominal Surgery, Gastric Bypass Surgery and Tubal Ligation Social History SMOKING STATUS: Former smoker SUBSTANCE USE: does not use Past Medical History Comments PMH COMMENT: PMH: HTN, T2DM on Mounjaro, HLD, GERD 2/2 hiatal hernia (resolved by Linx device), diabetic neuropathy, sciatica, and depression PSH: gastric bypass and cholecystectomy (2008), incisional hernia surgery x3, gastric sleeve surgery (2015) Medications: Macrobid, phenazopyridine, Welbutrin, Abilify, gabapentin, duloxetine Allergies: hydrocodone, morphine, Dilaudid (itchiness/hives) FH: Dad had history of stroke in his 40s, alcohol use disorder, possible CLL, and lethal brain aneurysm at 80, mom had history of type 2 diabetes mellitus and from kidney failure SH: Lives in a house in [place] alone, was a social drinker from age [age], smoked a pack a day from age [age], used cocaine and methamphetamine from age [age], used marijuana from age [age] and restarted using it 3 years ago Exam Vital Signs Temp Pulse Resp BP Pulse Ox O2 Del Method 98.9 F 82 18 96/69 100 Room Air 12/29/24 17:47 12/29/24 19:06 12/29/24 19:06 12/29/24 19:06 12/29/24 19:06 12/29/24 19:06 Narrative Exam Physical Exam: General: Alert, no acute distress. Skin: Warm, dry, intact, no obvious rash. Head: Normocephalic, atraumatic. Eye: Normal conjunctiva, PERRL. Throat: Oral mucosa moist. No obvious lesions in oropharynx. Cardiovascular: Slightly tachycardic rate and normal rhythm, no murmur, +S1/S2. Respiratory: Slightly tachypneic. Lungs are clear to auscultation, respirations unlabored, no crackles, no wheezing. Gastrointestinal: Tenderness to palpation of suprapubic abdomen. Soft, non- distended. No guarding or rebound tenderness. Extremities: No edema, no cyanosis, no clubbing. 2+ radial pulse bilaterally, 2+ posterior tibial pulse bilaterally. Neuro: No focal deficits observed. Conversant, moving all extremities. No overt cerebellar signs/incoordination. Psychiatric: Cooperative, appropriate affect. Results: Labs 12/29/24 14:53 12/29/24 17:51 Labs: Short CBC 12/29/24 Range/Units 14:53 WBC 8.9 (3.6-11.0) Thou/mm3 Hgb 11.3 L (12.0-16.0) g/dL Hct 37.3 (36.0-46.0) % Plt Count 590 H (140-440) Thou/mm3 BMP 12/29/24 12/29/24 14:53 17:51 Sodium 131 L 137 Potassium 4.1 4.1 Chloride 94 L 105 Carbon Dioxide 19.8 L 21.1 BUN 34 H 28 H Creatinine 3.7 H 2.7 H D Glucose 266 H 118 H D Calcium 10.3 8.5 D Cardiac Enzymes 12/29/24 Range/Units 14:53 Troponin I < 0.020 (0.0-0.045) ng/mL Liver Function 12/29/24 Range/Units 14:53 Total Bilirubin 0.5 (0.3-1.2) mg/dL AST 30 (0-34) U/L ALT 41 (10-49) U/L Alkaline Phosphatase 183 H (46-116) U/L Albumin 5.7 H (3.4-4.8) gm/dL Quality Measures Quality Measures none Medications Home Medications and Allergies Home Medications ?Medication ?Instructions ?Recorded ?Confirmed ?Type aripiprazole 10 mg tablet 10 mg PO QDAY 04/13/2412/30 History atorvastatin 80 mg tablet 80 mg PO QDAY 04/13/2412/30 History bupropion HCl 300 mg 24 hr tablet, 300 mg PO QDAY 04/0312/30/24 History extended release duloxetine 60 mg capsule,delayed 60 mg PO 1XD 04/13/24 12/30/24 History release ergocalciferol (vitamin D2) 1,250 1,250 mcg PO 1XD 04/2612/30/24 History mcg (50,000 unit) capsule gabapentin 300 mg capsule 300 mg PO 3XD 04/13/2412/30 History pantoprazole 40 mg tablet,delayed 40 mg PO QDAY 12/30/24 History release hydrocodone 5 mg-acetaminophen 325 1 tab PO Q6H PRN Mo derate Pain 06/14/24 12/30/24 History mg tablet (Scale Score 5-6) sucralfate 1 gram tablet 1 g PO BID 06/14/24 12/30/24 History trazodone 150 mg tablet 150 mg PO HS 06/14/24 History fluconazole 150 mg tablet 300 mg PO .once 12/30/24 History phenazopyridine 200 mg tablet 200 mg PO BID 12/30/24 0 12/30/24 History Allergies Allergy/AdvReac Type Severity Reaction Status Date / Time hydrocodone Allergy Severe Anxiety Verified 12/29/24 14:21 hydromorphone (From Dilaudid) Allergy Severe Hives Verified 12/29/24 14:21 morphine Allergy Severe ITCHINESS Verified 12/29/24 14:21 Visit Medications Acetaminophen (Acetaminophen 325 Mg Tablet) 650 mg PO Q6H PRN PRN Reason: PAIN SCALE 1-3 (mild Stop: 01/28/25 20:10 Dextrose (Dextrose 50%-Water Inj 50 Ml Syringe) 25 ml IV Q15MIN PRN PRN Reason: BG 50-70 responsive npo pt Stop: 01/28/25 20:10 Dextrose (Dextrose 50%-Water Inj 50 Ml Syringe) 50 ml IV Q15MIN PRN PRN Reason: BG <50 OR BG <70 & pt unresponsive Stop: 01/28/25 20:10 Glucagon (Glucagon Inj 1 Mg Vial) 1 mg IM Q15MIN PRN PRN Reason: BG <70, and no IV access Heparin Sodium (Porcine) (Heparin Sod Inj 5000 Unit/Ml Vial) 5,000 unit SC Q12HR HELENA Stop: 01/12/25 20:59 Insulin Human Lispro (Insulin Lispro (Admelog) 1 Unit/0.01 Ml Unit) 0 unit SC [facility]; Protocol Stop: 01/28/25 20:59 Last Admin: 12/29/24 21:28 Dose: Not Given Ondansetron HCl (Ondansetron Inj 2 Mg/Ml Inj 2 Ml) 4 mg IVP Q6H PRN; Protocol PRN Reason: NAUSEA OR VOMITING Stop: 01/28/25 20:10 Sennosides (Senna Tablet) 1 tab PO QDAY PRN; Protocol PRN Reason: constipation Stop: 01/28/25 20:10 Tramadol HCl (Tramadol Hcl 50 Mg Tablet) 50 mg PO Q6HR PRN PRN Reason: PAIN SCALE 4-10(Mod-Sev Stop: 01/03/25 20:48 Discontinued Medications Fentanyl Citrate (Fentanyl Cit Inj 50 Mcg/Ml Amp 2ml) 50 mcg IVP X1 ONE Stop: 12/29/24 15:47 Last Admin: 12/29/24 16:59 Dose: 50 mcg Sodium Chloride (Ns) 250 mls @ 999 mls/hr IV .Q16M ONE Stop: 12/29/24 14:53 Last Admin: 12/29/24 15:16 Dose: Not Given Sodium Chloride (Ns) 1,000 mls @ 999 mls/hr IV .Q1H1M ONE Stop: 12/29/24 16:13 Last Infusion: 12/29/24 15:46 Dose: Infused Sodium Chloride (Ns) 1,000 mls @ 999 mls/hr IV .Q1H1M ONE Stop: 12/29/24 16:39 Last Infusion: 12/29/24 17:01 Dose: Infused Sodium Chloride (Ns) 1,000 mls @ 999 mls/hr IV .Q1H1M ONE Stop: 12/29/24 19:31 Last Admin: 12/29/24 18:51 Dose: 999 mls/hr Ondansetron HCl (Ondansetron Inj 2 Mg/Ml Inj 2 Ml) 4 mg IVP X1 ONE; Protocol Stop: 12/29/24 15:47 Last Admin: 12/29/24 16:59 Dose: 4 mg Assessment & Plan Assessment Ally Christopher is a 59-year-old F with a PMH of HTN, T2DM on Mounjaro, HLD, GERD 2/2 hiatal hernia that has resolved with Linx device, gastric bypass x2 (2007), gastric sleeve (2014), diabetic neuropathy, sciatica, and depression who presents today with syncopal episode, abdominal pain, and diarrhea. Patient was admitted for the work-up and management of syncopal episode, intractable diarrhea, abdominal pain w/ concern for SBO, and FATIMAH. #Syncope #likely 2/2 to volume depletion from diarrhea Perceived lightheadedness after standing up from a hot bath, in the setting of volume depletion from patient's recent diarrhea, is most consistent with orthostatic syncope No LOC, post-ictal state, or focal neurological deficits Patient has had similar episodes on previous hospitalizations that have also co- occurred with flare-ups of her chronic diarrhea Very low suspicion for a cardiovascular etiology Diagnostic Inquiry -Orthostatic vitals -Echocardiogram -Consider EKG if concerned about cardiogenic causes Treatment Plan -No current recommendation #FATIMAH, likely prerenal, despite BUN/creatinine ratio 10 (improving) #likely 2/2 to volume depletion from diarrhea Upon admission, 12/29/24: Creatinine 3.7 (baseline: 1.0), eGFR 13 12/30/24: Creatinine 2.7, eGFR 19 (s/p 3 L IV fluid infusion), improving Diagnostic Inquiry -No current recommendation Treatment Plan - Monitor renal panel - Renally dosed medications - Hold any ANGELIC/ARB/diuretics - Avoid nephrotoxins #Intractable diarrhea #s/p gastric bypass and gastric sleeve #likely 2/2 dumping syndrome 2 days of acute diarrhea producing 7+ BMs of runny, non-bloody stool per day w/ nausea, appetite loss, suprapubic/lower quadrant abdominal pain and a likely orthostatic syncopal episode Has apparently had chronic diarrhea following gastric bypass x2, gastric sleeve, and LINX device with multiple admissions this year of similar flare-ups of diarrhea leading to syncope and FATIMAH Patient is likely more predisposed to developing diarrhea 2/2 dumping syndrome, diabetic autonomic neuropathy, inadequate luminal bile acid concentration due to cholecystectomy Differential Dx: IBS, microscopic colitis, medication side-effect Current medications patient takes that may elevate risk of diarrhea include: atorvastatin, pantoprazole, and nitrofurantoin Diagnostic Inquiry -No current recommendation Treatment Plan -Take caution when choosing medications with diarrheal side effect profiles (metformin, SSRIs, ANGELIC inhibitors, PPIs, most antibiotics) -White Hat Hacker patient on: 1. eating smaller, more frequent meals 2. chewing food more thoroughly and slowly 3. increasing intake of complex carbohydrates, protein, and soluble fiber while avoiding sugary foods or drinks #Small bowel obstruction r/o #Abdominal pain (suprapubic) CTAP showed fluid distended small bowel loops in the lower abdomen, possibly suggesting early small bowel obstruction Patient presented with an abrupt onset of colicky abdominal pain, nausea, and appetite loss but no vomiting or noticeable abdominal distension There is currently less concern for complete SBO due to patient's continued ability to have bowel movements and pass gas since being admitted Patient possesses the following risk factors for SBO: prior abdominal/pelvic surgery, abdominal wall or groin hernia Possible etiology: 2/2 intraperitoneal adhesions (55-80% of cases), tumors (particularly located in the ileum), complicated hernias, other infectious or inflammatory disorders Caution with the following drugs that may exacerbate presentation due to constipatory side effect profile: antihistamines, antispasmodics, antidepressants, antipsychotics, iron supplements, aluminum, barium, opiates, antihypertensives, ganglionic blockers, vinca alkaloids, calcium channel blockers, 5HT3 antagonists, GLP-1 agonists Diagnostic Inquiry -Consider Gastrografin small bowel series if patient begins to exhibit inability to have a bowel movement, pass gas, or exhibit abdominal distension Treatment Plan -Pain management #Microcytic anemia Hgb 11.3 (MCV 69, RDW 44.0) Coagulation panel WNL Diagnostic Inquiry -Consider iron panel, ferritin, and reticulocyte count Treatment Plan -Monitor Hgb, transfuse if <7 #Chronic medical problems #T2DM #Diabetic neuropathy #HTN #Depression Diagnostic Inquiry -Hemoglobin A1c -Lipid panel Treatment Plan -Insulin sliding scale -Consider restarting home medications for depression Hospital Management: Disposition: undergoing work-up and management of syncopal episode, intractable diarrhea, abdominal pain w/ concern for SBO, and FATIMAH Diet: CCL GI Prophylaxis: none Bowel Prophylaxis: senna DVT Prophylaxis: heparin CODE STATUS: Full Code I have examined the patient and conferred with my attending, Dr. Mckenna, and my senior resident, Dr. Castro, regarding them. Kennedy Kong, DO PGY-1 Internal Medicine
[2024-12-29 21:46] LABS: Collection Type, Urine Clean Catch
[2024-12-29 21:54] LABS: Amorphous Crystals,Urine Present (Absent); Bilirubin,Urine Negative (Negative); Blood,Urine Negative (Negative); Clarity,Urine Clear (Clear/Hazy); Color,Urine Drk-Yellow (Lt Yel-Yel); Glucose, Urine 4+ (Negative); Hyaline Casts,Urine 4 /hpf (0-1); Ketones,Urine Negative (Negative); Leukocyte Esterase,Urine Negative (Negative); Nitrite,Urine Negative (Negative); PH,Urine 5.5 (5.0-7.0); Protein,Urine 1+ (Neg - Trace); RBC,Urine 2 /hpf (0-3); Specific Gravity,Urine 1.018 (1.001-1.035); Squamous Epithelial Cell,Urine 2 /hpf (0-5); Urobilinogen,Urine Negative mg/dL (0.0-1.0); WBC,Urine 5 /hpf (0-5)
[2024-12-30] VITALS: BP 119/75; PULSE 71; RESP 18; TEMP 36.1; O2SAT 100
[2024-12-30 04:00] VITALS: BP 112/72; PULSE 70; PULSE 77; RESP 18; TEMP 36.7; O2SAT 95
[2024-12-30 05:32] LABS: Basophils # (Auto) 0.0 Thou/mm3 (0.0-0.2); Basophils % (Auto) 0 % (0-2.5); Eosinophils # (Auto) 0.1 Thou/mm3 (0.0-0.5); Eosinophils % (Auto) 3 % (0-10); Hematocrit 28.3 % (36.0-46.0); Immature Granulocytes Auto 0.01 Thou/mm3 (0.00-0.00); Lymphocytes # (Auto) 1.4 Thou/mm3 (1.0-4.8); Lymphocytes % (Auto) 26 % (10-50); Mean Corpuscular HGB Conc 30.4 g/dl (31.0-37.0); Mean Corpuscular Hemoglobin 21.5 pg (25.0-35.0); Mean Corpuscular Volume 71 fL (80-100); Monocytes # (Auto) 0.5 Thou/mm3 (0.0-0.8); Monocytes % (Auto) 9 % (0-12); Neutrophils # (Auto) 3.1 Thou/mm3 (1.8-7.7); Neutrophils % (Auto) 61 % (37-80); Nucleated Red Blood Cell # 0.00 Thou/mm3 (0.00-0.00); Nucleated Red Blood Cell % 0 /100 WBC (0); Platelet Count 453 Thou/mm3 (140-440); RDW Standard Deviation 45.6 fL (36.4-46.3); Red Blood Count 4.00 Miln/mm3 (4.00-5.20); White Blood Count 5.1 Thou/mm3 (3.6-11.0)
[2024-12-30 05:36] LABS: Glucose Estimated Average 183 mg/dL (80-131); Hemoglobin 8.6 g/dL (12.0-16.0); Hemoglobin A1C 8.0 % Hgb (4.8-6.0)
[2024-12-30 06:05] LABS: Alanine Aminotransferase 27 U/L (10-49); Albumin, Serum 4.0 gm/dL (3.4-4.8); Albumin/Globulin Ratio 1.6 (1.2-2.2); Alkaline Phosphatase 133 U/L (46-116); Anion Gap 10 (7-16); Aspartate Amino Transferase 24 U/L (0-34); BUN/Creatinine Ratio 15 Ratio (12-20); Bilirubin,Total 0.5 mg/dL (0.3-1.2); Blood Urea Nitrogen 22 mg/dL (9-23); Calcium 8.6 mg/dL (8.3-10.6); Calcium (Corrected) 8.6 mg/dL (8.5-10.1); Carbon Dioxide 21.6 mMol/L (20.0-31.0); Cardiac Risk Estimate 2.7 RATIO (3.7-5.6); Chloride 104 mMol/L (98-107); Cholesterol 177 mg/dL (132-200); Creatinine (Component) 1.5 mg/dL (0.6-1.3); Estimated Creatinine Clearance 35.9 mL/min (>60); Globulin 2.5 gm/dL (2.3-3.5); Glucose 113 mg/dL (74-106); HDL Cholesterol 66 mg/dL (40-60); LDL Cholesterol,Calculated 81 mg/dL (0-130); Osmolality,Calculated 276 (275-295); Potassium 3.6 mMol/L (3.4-5.1); Sodium 136 mMol/L (136-145); Total Protein 6.5 gm/dL (5.7-8.2); Triglycerides 152 mg/dL (30-150); eGFR 39 See Note
--- NOTE | 2024-12-30 06:42 | PC.NURSE ---
pt reported itchiness, Dr. Mckenna was made aware. Benadryl 25 mg PO ordered.
[2024-12-30] MEDS: GABAPENTIN 100 MG CAPSULE 200 MG PO ×3 (06:47→21:47)
[2024-12-30 08:00] VITALS: BP 111/71; PULSE 73; PULSE 83; RESP 19; TEMP 36.2; O2SAT 96
[2024-12-30] MEDS: DULoxetine HCL 30 MG CAPSULE 60 MG PO (09:44)
[2024-12-30] MEDS: PHENAZOPYRIDINE HCL 100 MG TABLET 200 MG PO ×2 (09:44→21:47)
[2024-12-30] MEDS: ATORVASTATIN CALCIUM 20 MG TABLET 80 MG PO (09:44)
[2024-12-30] MEDS: HEPARIN SOD INJ 5000 UNIT/ML VIAL SC ×2 (09:45→21:56)
[2024-12-30] MEDS: PANTOPRAZOLE 40 MG TABLET PO (09:45)
[2024-12-30] MEDS: SUCRALFATE 1 GM TABLET PO ×2 (09:45→21:47)
--- NOTE | 2024-12-30 09:47 | PC.SS ---
SS spoke to patient who is alert/oriented. Patient was able to verify demographics. Patient resides alone. Patient was admitted for presyncope. Patient states she has chronic diarrhea. Patient states she's independent with ADL's. No DME. Patient PCP: Dr. Vincent at [facility]. Last appt. was 2 days ago. Pharmacy: [facility]. Patient plans on returning back home upon discharge. Patient alt medical decision maker is her sister, Andie. d/c plan: home alt medical decision maker: Andie, , transportation: family
[2024-12-30] MEDS: BuPROPion HCL XL 150 MG TABCR 300 MG PO (09:49)
[2024-12-30 12:00] VITALS: BP 110/76; PULSE 80; PULSE 84; RESP 17; TEMP 36.3; O2SAT 94
[2024-12-30 13:57] LABS: Chloride,Urine Random 78.7 mMol/L (55.0-125.0); Creatinine,Random Urine 58 mg/dL (30-125); Potassium,Urine Random 15 mMol/L (12-62); Sodium,Urine Random 64.6 mMol/L (20.0-110.0)
[2024-12-30 16:00] VITALS: BP 103/66; PULSE 76; PULSE 88; RESP 17; TEMP 36.2; O2SAT 95
[2024-12-30 20:00] VITALS: BP 98/64; PULSE 72; RESP 18; TEMP 36.2; O2SAT 94
--- NOTE | 2024-12-30 21:15 | PD.RESDS ---
Planned Discharge Date 12/30/24 DS: Providers Provider Date of admission: 12/29/24 20:11 Primary care physician: DIONNE Celis Admitting Provider: Yoel Mckenna MD Attending Provider on Admission: Yoel Mckenna MD Attending Provider on DC: THEE Roberto Discharging Provider: THEE Roberto Hospital Course Hospital Course Hospital course: Ally Christopher is a 59-year-old F with a PMH of HTN, T2DM on Mounjaro, HLD, GERD 2/2 hiatal hernia that has resolved with Linx device, gastric bypass x2 (2007), gastric sleeve (2014), diabetic neuropathy, sciatica, and depression who presents today with syncopal episode, abdominal pain, and diarrhea. According to patient, she began having symptoms of diarrhea, nausea, appetite loss, lightheadedness, and stomach pain beginning 2 days ago. Today, she almost passed out after she was taking a hot bath and became lightheaded when she stood up. With regards to her diarrhea, patient describes stool as runny and red (with the caveat that she had also drank copious amounts of watermelon juice to rehydrate herself) and that she has 7+ bowel movements per day. Of note, she endorses chronic diarrhea and had actually been recently hospitalized in June, July and November of this year for similar symptoms. At the time of interview, patient only endorsed stomach pain that was primarily localized to the suprapubic area and described the pain as a 6-7 out of 10 in severity. In the ED, vitals showed: BP 73/49 HR 110 RR 22 Temp 98.2 SpO2 97% on room air ED Course: CBC showed slight microcytic anemia and thrombocytosis. CMP showed low sodium 131, elevated BUN and creatinine with reduced EGFR, high blood glucose 266, slight hypercalcemia and hypermagnesemia, and elevated alkaline phosphatase and lipase. UA showed 4+ glucose, 1+ protein and the presence of amorphous crystals and hyaline casts. Imaging: Chest x-ray showed prominent osteopenia but was otherwise unremarkable. CTAP showed a 1 mm upper pole nonobstructing left renal calculus, and fluid distended small bowel loops in the lower abdomen (possibly indicative of early SBO, Gastrografin small bowel series recommended). In the ED, patient was given 3 L NS bolus, IV fentanyl, IV Zofran. Patient was admitted for the work-up and management of syncopal episode, intractable diarrhea, abdominal pain w/ concern for SBO, and FATIMAH. Time Spent with Patient Time attestation: Total time spent providing and/or coordinating discharge services: Exam Vital Signs Temp Pulse Resp BP Pulse Ox O2 Del Method 97.1 F 72 18 98/64 94 L Room Air 12/30/24 20:00 12/30/24 20:12/30/24 20:00 12/30/24 20:00 12/30/24 20:00 12/30/24 20:00 Discharge Plan Prescriptions/Referrals Prescriptions/Med Rec: No Action ondansetron 4 mg tablet,disintegrating 4 mg PO Q8H PRN (Reason: nausea and vomiting) Qty: 10 0RF fluconazole 150 mg tablet 300 mg PO .once Patient Comments: TAKE 1 TABLET BY MOUTH ONCE FOLLOWING ANTIBIOTICS phenazopyridine 200 mg tablet 200 mg PO BID Patient Comments: TAKE 1 TABLET BY MOUTH TWICE DAILY NEEDED FOR BURNING atorvastatin 80 mg tablet 80 mg PO QDAY pantoprazole 40 mg tablet,delayed release (DR/EC) 40 mg PO QDAY Patient Comments: take 1 tablet by mouth once daily gabapentin 300 mg capsule 300 mg PO 3XD Patient Comments: take 1 capsule by mouth three times a day ergocalciferol (vitamin D2) 1,250 mcg (50,000 unit) capsule 1,250 mcg PO 1XD aripiprazole 10 mg tablet 10 mg PO QDAY Patient Comments: take 1 tablet by mouth once daily bupropion HCl 300 mg tablet extended release 24 hr 300 mg PO QDAY Patient Comments: take 1 tablet by mouth every morning duloxetine 60 mg capsule,delayed release(DR/EC) 60 mg PO 1XD Patient Comments: take 1 capsule by mouth once daily hydrocodone-acetaminophen 5-325 mg Tablet 1 tab PO Q6H PRN (Reason: Moderate Pain (Scale Score 5-6)) sucralfate 1 gram Tablet 1 g PO BID trazodone 150 mg tablet 150 mg PO HS Patient Comments: take 1 tablet by mouth at bedtime Referrals: Ramin Vincent FNP [Primary Care Provider] - Patient/Caregiver Discharge Instructions Print Language: Lao
--- NOTE | 2024-12-30 21:39 | ESPR_ITS ---
<Statement entered by Ronny Flores MD - 12/31/24 15:36> I have reviewed the note and agree with the resident's assessment & plan with exceptions as below. I have personally reviewed labs, imaging, home meds/prior records, examined the patient, formulated and discussed management plan with the IM team. Patient at examined at bedside today. Patient reports that she has a GI doctor appointment on Saturday. She reports that she has been having chronic diarrhea for some time. She endorses cholecystectomy history, gastric sleeve and bypass. She reports currently she has not had a bowel movement right now. Will workup patient for with stool cultures and diarrhea workup. Patient FATIMAH is improving at this time, will continue to monitor renal panel. Repeat hematology and chemistry in the a.m. Ronny Flores, PGY-2 Internal Medicine Documentation for date of: 12/30/24 Subjective Subjective Interval history: Patient was seen and examined at bedside. No acute events took place overnight. Pt has not had a BM this AM yet. Denies reccent fevers or sick contacts. States that it is typical for her to develop red colored diarrhea after drinking watermelon juice. Patient states that after her bariatric surgeries, pt often is found dehydrated and develops bilateral UE and LE cramps. These symptoms were present during the recent lightheadedness event at shower that prompted the patient seek medical attention as well. Patient also states that she has chronic E coli infection with suprapubic tenderness and dysuria. No other complaints at this time. Exam Vital Signs Temp Pulse Resp BP Pulse Ox O2 Del Method 97.1 F 72 18 98/64 94 L Room Air 12/30/24 20:12/30/24 20:00 12/30/24 20:00 12/30/24 20:12/30/24 20:12/30/24 20:00 Narrative Exam General: Alert and oriented x3, No apparent distress. Skin: Intact, Warm, no rashes. HEENT: Normocephalic, Atraumatic. Normal neck range of motion, Supple. Trachea midline. Respiratory: Lungs are clear to auscultation, Breath sounds are equal bilaterally with equal chest expansion. Cardiovascular: RRR, normal S1, S2, No murmurs. Distal pulses 2+ Abdomen: Abdomen soft, non-distended, without erythema, or lesions. Normotensive bowel sounds x4. Percussion tympanic. Palpation nontender in all four quadrants. No organomagely. No guarding or rebound present. GenitoUrinary: Tenderness to palpation of suprapubic abdomen Musculoskeletal/Extremities: No erythema, swelling, tenderness of any joints. No edema of BLE. DP pulses +2/3 b/l. Full active ROM of all four extremities. Neurologic: NEURO: Oriented x3, cranial nerves II to XII grossly intact. Cerebellar exam ([id number], [id number]) intact. Muscle strength 5/5 on UE and LE b/l, Moves extremities x4. Sensation intact to gross touch along C6-T1 and L2-S1 dermatomes. No focal neurologic deficits noted Psych: Thoughts linear and responses appropriate. Objective Objective Narrative Objective Narrative: Assessment Ally Christopher is a 59-year-old F with a PMH of HTN, T2DM on Mounjaro, HLD, GERD 2/2 hiatal hernia that has resolved with Linx device, gastric bypass x2 (2007), gastric sleeve (2014), diabetic neuropathy, sciatica, and depression who presents today with syncopal episode, abdominal pain, and diarrhea. Patient was admitted for the work-up and management of syncopal episode, intractable diarrhea, abdominal pain w/ concern for SBO, and FATIMAH. #PreSyncope #likely 2/2 to volume depletion from diarrhea Perceived lightheadedness after standing up from a hot bath, in the setting of volume depletion from patient's recent diarrhea, is most consistent with orthostatic syncope No LOC, post-ictal state, or focal neurological deficits Patient has had similar episodes on previous hospitalizations that have also co- occurred with flare-ups of her chronic diarrhea Workup will include assessment for causes of late-onset syncope, including orthostatic hypotension and carotid sinus syndrome. +orthostatic vitals were negative +Echo (07/17/2024) for work up of syncope revealed normal LV with EF of 60-65%. Grade II Diastolic Dysfunction +controlled carotid sinus massage test #Intractable diarrhea #s/p gastric bypass and gastric sleeve #likely 2/2 dumping syndrome 2 days of acute diarrhea producing 7+ BMs of runny, non-bloody stool per day w/ nausea, appetite loss, suprapubic/lower quadrant abdominal pain and a likely orthostatic syncopal episode Has apparently had chronic diarrhea following gastric bypass x2, gastric sleeve, and LINX device with multiple admissions this year of similar flare-ups of diarrhea leading to syncope and FATIMAH Patient is likely more predisposed to developing diarrhea 2/2 dumping syndrome, diabetic autonomic neuropathy, inadequate luminal bile acid concentration due to cholecystectomy Differential Dx: IBS, microscopic colitis, medication side-effect Current medications patient takes that may elevate risk of diarrhea include: atorvastatin, pantoprazole, and nitrofurantoin Plan: -ordered TSH =1.02 wnl; Hgb A1c 8.0 -ordered calprotectin -ordered ESR and CRP -ordered celiac dz panel (tTG-IgA, total IgA) -ordered fecal fat -ordered Giardia Antigen -negative -ordered Norovirus stool -ordered stool culture (Salmonella, Shigella, Campylobater) -ordered stool WBC -negative -ordered FOBT -consider C. 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 eating smaller, more frequent meals 2. chewing food more thoroughly and slowly 3. increasing intake of complex carbohydrates, protein, and soluble fiber while avoiding sugary foods or drinks #UTI Patient on Macrobid for E coli infection of the bladder Reports dysuria and exhibits suprapubic tenderness on exam #Microcytic anemia Hgb 11.3 (MCV 69, RDW 44.0) Coagulation panel WNL Diagnostic Inquiry -Consider iron panel, ferritin, and reticulocyte count Treatment Plan -Monitor Hgb, transfuse if <7 #Chronic medical problems #T2DM HgbA1c =8 (12/30/24) ?home meds #Diabetic neuropathy #HTN #Depression Diagnostic Inquiry -Hemoglobin A1c -Lipid panel Treatment Plan -Insulin sliding scale -Consider restarting home medications for depression #FATIMAH, likely prerenal, despite BUN/creatinine ratio 10 (improving) #likely 2/2 to volume depletion from diarrhea Upon admission, 12/29/24: Creatinine 3.7 (baseline: 1.0), eGFR 13 12/30/24: Creatinine 2.7, eGFR 19 (s/p 3 L IV fluid infusion), improving Diagnostic Inquiry -No current recommendation Treatment Plan - Monitor renal panel - Renally dosed medications - Hold any ANGELIC/ARB/diuretics - Avoid nephrotoxins Hospital Management: Disposition: undergoing work-up and management of syncopal episode, intractable diarrhea, abdominal pain w/ concern for SBO, and FATIMAH Diet: CCL GI Prophylaxis: none Bowel Prophylaxis: senna DVT Prophylaxis: heparin CODE STATUS: Full Code This case was discussed with my attending physician, Dr. Donahue, and senior resident, Dr Flores. Yolanda Romano, DO PGY I Internal Medicine Labs 12/31/24 04:12 12/31/24 04:12 Labs: Laboratory Results - last 24 hr 12/29/24 12/30/24 12/30/24 21:42 03:54 12:10 WBC 5.1 D RBC 4.00 Hgb 8.6 L D Hct 28.3 L MCV 71 L MCH 21.5 L MCHC 30.4 L RDW Std Deviation 45.6 Plt Count 453 H D Neut % (Auto) 61 Lymph % (Auto) 26 [place] % (Auto) 9 Eos % (Auto) 3 Baso % (Auto) 0 Neut # (Auto) 3.1 Lymph # (Auto) 1.4 [place] # (Auto) 0.5 Eos # (Auto) 0.1 Baso # (Auto) 0.0 Immature Gran # (Auto) 0.01 H Absolute Nucleated RBC 0.00 Immature Gran % 0 Nucleated RBC % 0 Sodium 136 Potassium 3.6 D Chloride 104 Carbon Dioxide 21.6 Anion Gap 10 BUN 22 Creatinine 1.5 H D Estim Creat Clear Calc 35.9 L eGFR 39 L BUN/Creatinine Ratio [address] Glu mg/dL 183 H Hemoglobin A1c 8.0 H Calculated Osmolality 276 Calcium 8.6 Corrected Calcium 8.6 D Total Bilirubin 0.5 AST 24 ALT 27 Alkaline Phosphatase 133 H D Total Protein 6.5 Albumin 4.0 D Globulin 2.5 Albumin/Globulin Ratio 1.6 Triglycerides 152 H Cholesterol 177 LDL Cholesterol, Calc 81 HDL Cholesterol 66 H Cholesterol/HDL Ratio 2.7 L Ur Collection Type Clean Catch Urine Color Drk-Yellow A Urine Clarity Clear Urine pH 5.5 Ur Specific [place] 1.018 Urine Protein 1+ A Urine Glucose (UA) 4+ A Urine Ketones Negative Urine Blood Negative Urine Nitrite Negative Urine Bilirubin Negative Urine Urobilinogen (Auto) Negative Ur Leukocyte Esterase Negative Urine RBC 2 Urine WBC 5 Ur Squamous Epith Cells 2 Amorphous Crystals Present A Urine Bacteria None Hyaline Casts 4 H Ur Random Creatinine 58 Ur Random Sodium 64.6 Ur Random Potassium 15 Ur Random Chloride 78.7 Quality Measures Quality Measures none Assessment & Plan Assessment Current Active Medications: Generic Name Dose Route Start Last Admin Trade Name Freq PRN Reason Stop Dose Admin Acetaminophen 650 mg 12/29/24 20:11 Acetaminophen 325 Mg Tablet PO 01/28/25 20:10 Q6H PRN PAIN SCALE 1-3 (mild Aripiprazole 10 mg 12/30/24 09:00 12/30/24 09:44 Aripiprazole 5 Mg Tablet PO 01/29/25 08:59 10 mg QDAY HELENA Administration Atorvastatin Calcium 80 mg 12/30/24 09:00 12/30/24 09:44 Atorvastatin Calcium 20 Mg Tablet PO 01/29/25 08:59 80 mg QDAY HELENA Administration Bupropion HCl 300 mg 12/30/24 09:00 12/30/24 09:49 Bupropion Hcl Xl 150 Mg Tabcr PO 01/29/25 08:59 300 mg QDAY HELENA Administration Dextrose 25 ml 12/29/24 20:11 Dextrose 50%-Water Inj 50 Ml Syringe IV 01/28/25 20:10 Q15MIN PRN BG 50-70 responsive npo pt Dextrose 50 ml 12/29/24 20:11 Dextrose 50%-Water Inj 50 Ml Syringe IV 01/28/25 20:10 Q15MIN PRN BG <50 OR BG <70 & pt unresponsive Diphenhydramine HCl 25 mg 12/30/24 06:29 12/30/24 13:33 Diphenhydramine 25 Mg Capsule PO 01/29/25 06:28 25 mg Q6HR PRN Administration ITCHING Duloxetine HCl 60 mg 12/30/24 09:00 12/30/24 09:44 Duloxetine Hcl 30 Mg Capsule PO 01/29/25 08:59 60 mg DAILY HELENA Administration Gabapentin 200 mg 12/30/24 06:03 12/30/24 13:34 Gabapentin 100 Mg Capsule PO 01/29/25 06:02 200 mg TID HELENA Administration Protocol Glucagon 1 mg 12/29/24 20:11 Glucagon Inj 1 Mg Vial IM Q15MIN PRN BG <70, and no IV access Heparin Sodium (Porcine) 5,000 unit 12/29/24 21:00 12/30/24 09:45 Heparin Sod Inj 5000 Unit/Ml Vial SC 01/12/25 20:59 5,000 unit Q12HR HELENA Administration Insulin Human Lispro 0 unit 12/29/24 21:00 12/30/24 17:36 Insulin Lispro (Admelog) 1 Unit/0.01 Ml Unit SC 01/28/25 20:59 Not Given ACHS [facility] Protocol Home Medication- 1,250 mcg 12/30/24 07:30 12/30/24 09:44 Please Speak With PO 01/29/25 07:29 Not Given Patient Caregiver To Q7D HELENA Have Rx Brought To [facility] Ondansetron HCl 4 mg 12/29/24 20:11 Ondansetron Inj 2 Mg/Ml Inj 2 Ml IVP 01/28/25 20:10 Q6H PRN NAUSEA OR VOMITING Protocol Pantoprazole Sodium 40 mg 12/30/24 09:00 12/30/24 09:45 Pantoprazole 40 Mg Tablet PO 01/29/25 08:59 40 mg QDAY HELENA Administration Phenazopyridine HCl 200 mg 12/30/24 09:00 12/30/24 09:44 Phenazopyridine Hcl 100 Mg Tablet PO 01/01/25 08:59 200 mg BID HELENA Administration Sennosides 1 tab 12/29/24 20:11 Senna Tablet PO 01/28/25 20:10 QDAY PRN constipation Protocol Sucralfate 1 gm 12/30/24 09:00 12/30/24 09:45 Sucralfate 1 Gm Tablet PO 01/29/25 08:59 1 gm BID HELENA Administration Tramadol HCl 50 mg 12/29/24 20:49 12/30/24 13:34 Tramadol Hcl 50 Mg Tablet PO 01/03/25 20:48 50 mg Q6HR PRN Administration PAIN SCALE 4-10(Mod-Sev Trazodone HCl 150 mg 12/30/24 21:00 Trazodone Hcl 50 Mg Tablet PO 01/29/25 20:59 HS [facility] Attending Provider Attestation/Addendum 59-year-old female with previous gastric bypass surgery, chronic diarrhea, alcohol use was admitted for presyncopal episode. Currently asymptomatic. She has no lightheadedness no double vision no blurriness. Continue current treatment and workup. I discussed with and supervised the resident physician who took care of this patient. I agree with the assessment and plan as above.
[2024-12-31] VITALS: BP 92/60; PULSE 66; RESP 18; TEMP 36.1; O2SAT 95
[2024-12-31 04:00] VITALS: BP 93/57; PULSE 65; RESP 18; TEMP 36.2; O2SAT 94
[2024-12-31 04:57] LABS: Basophils # (Auto) 0.0 Thou/mm3 (0.0-0.2); Basophils % (Auto) 0 % (0-2.5); Eosinophils # (Auto) 0.2 Thou/mm3 (0.0-0.5); Eosinophils % (Auto) 5 % (0-10); Hematocrit 29.2 % (36.0-46.0); Immature Granulocytes Auto 0.01 Thou/mm3 (0.00-0.00); Lymphocytes # (Auto) 1.5 Thou/mm3 (1.0-4.8); Lymphocytes % (Auto) 34 % (10-50); Mean Corpuscular HGB Conc 29.8 g/dl (31.0-37.0); Mean Corpuscular Hemoglobin 21.2 pg (25.0-35.0); Mean Corpuscular Volume 71 fL (80-100); Monocytes # (Auto) 0.6 Thou/mm3 (0.0-0.8); Monocytes % (Auto) 13 % (0-12); Neutrophils # (Auto) 2.2 Thou/mm3 (1.8-7.7); Neutrophils % (Auto) 48 % (37-80); Nucleated Red Blood Cell # 0.00 Thou/mm3 (0.00-0.00); Nucleated Red Blood Cell % 0 /100 WBC (0); Platelet Count 434 Thou/mm3 (140-440); RDW Standard Deviation 45.4 fL (36.4-46.3); Red Blood Count 4.11 Miln/mm3 (4.00-5.20); White Blood Count 4.5 Thou/mm3 (3.6-11.0)
[2024-12-31 05:34] LABS: Alanine Aminotransferase 27 U/L (10-49); Albumin, Serum 4.1 gm/dL (3.4-4.8); Albumin/Globulin Ratio 1.6 (1.2-2.2); Alkaline Phosphatase 140 U/L (46-116); Anion Gap 7 (7-16); Aspartate Amino Transferase 29 U/L (0-34); BUN/Creatinine Ratio 18 Ratio (12-20); Bilirubin,Total 0.6 mg/dL (0.3-1.2); Blood Urea Nitrogen 20 mg/dL (9-23); Calcium 9.0 mg/dL (8.3-10.6); Calcium (Corrected) 9.0 mg/dL (8.5-10.1); Carbon Dioxide 26.0 mMol/L (20.0-31.0); Chloride 103 mMol/L (98-107); Creatinine (Component) 1.1 mg/dL (0.6-1.3); Estimated Creatinine Clearance 49.0 mL/min (>60); Globulin 2.5 gm/dL (2.3-3.5); Glucose 100 mg/dL (74-106); Osmolality,Calculated 274 (275-295); Potassium 3.9 mMol/L (3.4-5.1); Sodium 136 mMol/L (136-145); Total Protein 6.6 gm/dL (5.7-8.2); eGFR 57 See Note
[2024-12-31 05:51] LABS: Hemoglobin 8.7 g/dL (12.0-16.0)
[2024-12-31 07:04] LABS: Magnesium 2.0 mg/dL (1.6-2.6)
[2024-12-31 08:00] VITALS: BP 118/77; PULSE 65; PULSE 91; RESP 19; TEMP 36.2; O2SAT 95
[2024-12-31] MEDS: POLYETHYLENE GLYCOL 17 GM PACKET PO (09:23)
[2024-12-31] MEDS: DULoxetine HCL 30 MG CAPSULE 60 MG PO (09:24)
[2024-12-31] MEDS: BuPROPion HCL XL 150 MG TABCR 300 MG PO (09:24)
[2024-12-31] MEDS: CHOLECALCIFEROL (Vitamin D3) 1,000 IU TABLET 2000 IU PO (09:25)
[2024-12-31] MEDS: HEPARIN SOD INJ 5000 UNIT/ML VIAL SC (09:25)
[2024-12-31] MEDS: PHENAZOPYRIDINE HCL 100 MG TABLET 200 MG PO (09:25)
[2024-12-31] MEDS: ATORVASTATIN CALCIUM 20 MG TABLET 80 MG PO (09:25)
[2024-12-31] MEDS: DOCUSATE SOD 100 MG CAPSULE PO (09:25)
[2024-12-31] MEDS: PANTOPRAZOLE 40 MG TABLET PO (09:26)
[2024-12-31] MEDS: SUCRALFATE 1 GM TABLET PO (09:26)
[2024-12-31 12:00] VITALS: BP 120/85; PULSE 72; PULSE 98; RESP 18; TEMP 36.2; O2SAT 97
--- NOTE | 2024-12-31 17:25 | ESDS_ITS ---
<Statement entered by Ronny Flores MD - 01/01/25 17:51> I have reviewed the note and agree with the resident's assessment & plan with exceptions as below. I have personally reviewed labs, imaging, home meds/prior records, examined the patient, formulated and discussed management plan with the IM team. Patient examined at bedside today. Patient reports improvement. Patient will follow-up with GI outpatient as she has an appointment Saturday. Will recommend stool cultures in addition to other infectious workup for diarrhea. Patient could be having chronic dumping syndrome, postcholecystectomy diarrhea or irritable bowel syndrome as she says that the diarrhea waxes and wanes. Patient was then discharged with the following instructions listed below. Ronny Flores, PGY-2 Internal Medicine Planned Discharge Date 12/31/24 DS: Providers Provider Date of admission: 12/29/24 20:11 Primary care physician: DIONNE Celis Admitting Provider: Yoel Mckenna MD Attending Provider on Admission: Delon Donahue MD Attending Provider on DC: Delon Donahue MD Discharging Provider: Delon Donahue MD DS: Diagnosis Problem List Completed Was Problem List Reviewed/Reconciled?: Yes Hospital Course Hospital Course Hospital course: Ally Christopher is a 59-year-old F with a PMH of HTN, T2DM on Mounjaro, HLD, GERD 2/2 hiatal hernia that has resolved with Linx device, gastric bypass x2 (2007), gastric sleeve (2014), diabetic neuropathy, sciatica, and depression who presented on 12/29/2024 with syncopal episode, abdominal pain, and diarrhea. She also noted bilateral upper and lower extremity cramping as she would get with dehydration. BP at presentation 73/49 HR 110 RR 22 temp 98.2. in the ED, patient was given 3L NS bolus, IV fentanyl, IV Zofran. Creatinine elevated at 3.7 and BUN 34. Patient was admitted for workup of her syncope, management of diarrhea and volume loss, and FATIMAH secondary to hypovolemia. Patient reportedly had been having upwards of 7 watery diarrhea, red discolored, before presenting to the ED. She attributed the red color to the high amount of watermelon juice that she had to drink, which was typical for her. Over the course of her stay, orthostatic vitals were negative with lying left upper arm 99/63, sitting 105/63, standing 100/73. Additionally echocardiogram revealed normal LV with EF of 60-65%. Grade II Diastolic Dysfunction. Controlled tactile carotid sinus massage did not induce reflex hypotension. Creatinine gradually down trended to 1.1 and BUN normalized to 20 on the day of discharge. we strongly think that her lightheadedness had to do with hypotension secondary to chronic diarrhea. During the time of her hospitalization, patient failed to have a bowel movement. And stool workup initiated for inflammatory bowel disease markers, calprotectin, inflammatory diarrhea bacteria (Salmonella Shigella and Campylobacter), norovirus, fecal fat for steatorrhea, and FOBT could not be completed, pending outpatient evaluation. Pending celiac disease panel. Patient was educated on adequate hydration daily to maintain circulatory volume. At the point of discharge, patient is medically stable and deemed safe to return to his/her previous state of living. Imaging: Echo (07/17/2024) for work up of syncope revealed normal LV with EF of 60-65%. Grade II Diastolic Dysfunction Chest x-ray showed prominent osteopenia but was otherwise unremarkable. CTAP showed a 1 mm upper pole nonobstructing left renal calculus, and fluid distended small bowel loops in the lower abdomen Admission Diagnoses: #Syncope #likely 2/2 to volume depletion from diarrhea #FATMIAH, likely prerenal, despite BUN/creatinine ratio 10 (improving) #likely 2/2 to volume depletion from diarrhea #Intractable diarrhea #s/p gastric bypass and gastric sleeve #likely 2/2 dumping syndrome #Small bowel obstruction r/o #Abdominal pain (suprapubic) #Microcytic anemia #Chronic medical problems #T2DM #Diabetic neuropathy #HTN #Depression Discharge Instructions: Follow up with PCP within one week Follow up with your GI doctor as you have an appointment with him on Saturday Consider Stool cultures and other diarrhea workup outpatient with your GI doctor Encourage oral hydration at least 4-5 glasses of water a day as your kidneys were damaged while in the hospital Consider limiting the amount of narcotics you take as this can make you constipated Return to ER if your symptoms worsen or return This case was discussed with my attending physician, Dr. Donahue, and senior resident Dr Flores. Yolanda Romano, PGY I Time Spent with Patient Time attestation: Total time spent providing and/or coordinating discharge services: Time spent: Greater than 30 minutes Exam Vital Signs Temp Pulse Resp BP Pulse Ox O2 Del Method 97.1 F 98 19 118/77 95 Room Air 12/31/24 08:00 12/31/24 12:00 12/31/24 08:00 12/31/24 08:00 12/31/24 08:00 12/31/24 08:00 Narrative Exam Physical Exam: General: Alert, no acute distress. Skin: Warm, dry, intact, no obvious rash. Head: Normocephalic, atraumatic. Eye: Normal conjunctiva, PERRL. Throat: Oral mucosa moist. No obvious lesions in oropharynx. Cardiovascular: regular rate and normal rhythm, no murmur, +S1/S2. Respiratory: Lungs are clear to auscultation, respirations unlabored, no crackles, no wheezing. Gastrointestinal: Tenderness to palpation of suprapubic abdomen. Soft, non- distended. No guarding or rebound tenderness. Extremities: No edema, no cyanosis, no clubbing. 2+ radial pulse bilaterally, 2+ posterior tibial pulse bilaterally. Neuro: No focal deficits observed. Conversant, moving all extremities. No overt cerebellar signs/incoordination. Psychiatric: Cooperative, appropriate affect. Discharge Plan Plan Patient Disposition: HOME (Self Care) Patient condition on transfer: Stable Care Plan Goals: Discharge Instructions: Follow up with PCP within one week Follow up with your GI doctor as you have an appointment with him on Saturday Consider Stool cultures and other diarrhea workup outpatient with your GI doctor Encourage oral hydration at least 4-5 glasses of water a day as your kidneys were damaged while in the hospital Consider limiting the amount of narcotics you take as this can make you constipated Return to ER if your symptoms worsen or return Prescriptions/Referrals Prescriptions/Med Rec: Continued ondansetron 4 mg tablet,disintegrating 4 mg PO Q8H PRN (Reason: nausea and vomiting) Qty: 10 0RF fluconazole 150 mg tablet 300 mg PO .once Patient Comments: TAKE 1 TABLET BY MOUTH ONCE FOLLOWING ANTIBIOTICS phenazopyridine 200 mg tablet 200 mg PO BID Patient Comments: TAKE 1 TABLET BY MOUTH TWICE DAILY NEEDED FOR BURNING atorvastatin 80 mg tablet 80 mg PO QDAY pantoprazole 40 mg tablet,delayed release (DR/EC) 40 mg PO QDAY Patient Comments: take 1 tablet by mouth once daily gabapentin 300 mg capsule 300 mg PO 3XD Patient Comments: take 1 capsule by mouth three times a day ergocalciferol (vitamin D2) 1,250 mcg (50,000 unit) capsule 1,250 mcg PO 1XD aripiprazole 10 mg tablet 10 mg PO QDAY Patient Comments: take 1 tablet by mouth once daily bupropion HCl 300 mg tablet extended release 24 hr 300 mg PO QDAY Patient Comments: take 1 tablet by mouth every morning duloxetine 60 mg capsule,delayed release(DR/EC) 60 mg PO 1XD Patient Comments: take 1 capsule by mouth once daily hydrocodone-acetaminophen 5-325 mg Tablet 1 tab PO Q6H PRN (Reason: Moderate Pain (Scale Score 5-6)) sucralfate 1 gram Tablet 1 g PO BID trazodone 150 mg tablet 150 mg PO HS Patient Comments: take 1 tablet by mouth at bedtime Referrals: Ramin Vincent FNP [Primary Care Provider] - Patient/Caregiver Discharge Instructions Discharge Activity: activity as tolerated Education Materials: Acute Kidney Failure Dc, ED Diarrhea, Bacterial (Adult), ED Irritable Bowel Syndrome Print Language: Bel[place]ian Stand Alone Forms: [employer] Info., Patient Portal Info Letter Discharge Order Discharge Orders: Discharge (Routine); Ordered 12/31/24 Ordered By: Ronny Flores Quality Discharge Quality Measures VTE prophylaxis Attestestation MD Attestation I supervised the medical equipment sales who saw this patient. I agree with the assessment and discharge plan as above. Follow up with PCP as scheduled. Return to ED for recurrent symptoms.
[2025-01-05 14:14] LABS: Immunoglobulin A 171 mg/dL (70-320); tTG Ab, IgA <1.0 U/mL
== END 2024-12-31 13:28 | disposition home or self-care (01) | DRG 254 ==
LOC: SERX 20:13 → SERHOLD 20:25 → S3NX 23:47
PROVIDERS: Emergency Medicine; Nurse Practitioner Primary Care; Admitting Provider Internal Medicine; Emergency Provider Emergency Medicine; Visit Provider Internal Medicine
DX: K91.1 Postgastric surgery syndromes (principal); K95.89 Other complications of other bariatric procedure; K21.9 Gastro-esophageal reflux disease without esophagitis; E78.5 Hyperlipidemia, unspecified; I10 Essential (primary) hypertension; N17.9 Acute kidney failure, unspecified; E11.40 Type 2 diabetes mellitus with diabetic neuropathy, unspecified; F32.A Depression, unspecified; D50.9 Iron deficiency anemia, unspecified; E86.1 Hypovolemia; I95.89 Other hypotension; N30.90 Cystitis, unspecified without hematuria; B96.20 Unspecified Escherichia coli [E. coli] as the cause of diseases classified elsewhere; M54.30 Sciatica, unspecified side; Z98.84 Bariatric surgery status; Z87.891 Personal history of nicotine dependence; Z90.49 Acquired absence of other specified parts of digestive tract; Z79.899 Other long term (current) drug therapy; Z88.5 Allergy status to narcotic agent; Y83.2 Surgical operation with anastomosis, bypass or graft as the cause of abnormal reaction of the patient, or of later complication, without mention of misadventure at the time of the procedure
CPT/HCPCS: 36415; 71045; 74176; 80048; 80053; 80061; 81001; 82436; 82570; 82705; 82784; 83036; 83690; 83735; 83880; 83993; 84133; 84300; 84443; 84484; 85025; 85610; 85730; 86364; 87015; 87045; 87046; 87205; 87329; 87449; 87493; 87899; 93225; 93306; 96361; 96374; 96375; 99284; J1644; J2405; J3010; J7030; A9270

== ENCOUNTER → 2025-01-04 | Outpatient (CLI) | payer MEDICAID, SELFPAY ==
--- NOTE | 2025-01-04 08:45 | XR_ITS ---
Examination: Abdomen sonogram, complete Date and time of exam: January 04, 2025, 0952 hours INDICATIONS: Lower abdominal pain beginning 2 years ago. Technique: Multiple real-time grayscale transabdominal sonographic images of the abdomen have been obtained. Findings: Absent gallbladder Normal common bile duct 0.2 cm Pancreatic head 2.0 cm Aorta not enlarged. Liver 12.0 cm irregular contour fatty infiltration Normal hepatopedal portal venous flow Patent IVC Right kidney 9.0 cm renal cortex 1.4 cm 18 mm lower pole cyst Left kidney 9.8 cm cortex 1.6 cm Upper pole 23 mm cyst Mild to moderate bilateral renal parenchymal scar formation Spleen 8.1 cm IMPRESSION: Absent gallbladder Normal common bile duct Suspect primary hepatocellular disease, there is fatty infiltration throughout the liver
== END | disposition home or self-care (01) ==
DX: K76.0 Fatty (change of) liver, not elsewhere classified (principal)
CPT/HCPCS: 76700